=== PATIENT | female | born 1950 | race Caucasian/White ===

== ENCOUNTER 2017-06-30 09:26 | Outpatient (RCR) | payer MEDICARE, SELFPAY ==
--- NOTE | 2017-11-18 16:52 | HP.PT.NRP ---
HP - Discharge Summary (1) - Patient Information SHANTANU BOWIE was seen in my office for initial evaluation on . The following Plan of Care was established for this patient: This patient was last seen in our office . Pertinent comments regarding their Physical therapy will appear below: At this point I will be discontinuing this patient from physical therapy. I would be happy to see this patient again in the future if found appropriate by the physician. Thank you! Lilia Belcher
== END 2017-06-30 19:00 | disposition home or self-care (01) ==
LOC: PT 09:26
PROVIDERS: Family Provider Internal Medicine; PCP Internal Medicine; Visit Provider Internal Medicine
DX: M50.30 Other cervical disc degeneration, unspecified cervical region (principal); G43.909 Migraine, unspecified, not intractable, without status migrainosus
CPT/HCPCS: 97140; G8978; G8979

== ENCOUNTER → 2018-06-07 16:42 | Outpatient (CLI) | payer MEDICARE, SELFPAY ==
--- NOTE | 2018-06-07 16:47 | RAD_ITS ---
STUDY: X-RAY - RIGHT KNEE REASON FOR EXAM: Female, 68 years old. Trauma TECHNIQUE: 4 view(s) of the knee. COMPARISON: None. FINDINGS: Normal visualized distal femur. Normal visualized proximal tibia and fibula. Normal proximal tibiofibular articulation. Narrowed medial femorotibial compartment with spurring of medial tibial condyle. Normal lateral femorotibial compartment. Normal patellofemoral articulation. The soft tissue structures are unremarkable. RAD/Knee 4 or More Views IMPRESSION: Degenerative changes. No evidence for acute fracture Electronically Signed: Antonio Sauer MD at 17:42 EDT , Service support ,
== END ==
PROVIDERS: Family Provider Internal Medicine; PCP Internal Medicine; Visit Provider Internal Medicine
DX: M25.561 Pain in right knee (principal)
CPT/HCPCS: 73564

== ENCOUNTER → 2018-08-15 09:33 | Outpatient (CLI) | payer MEDICARE, SELFPAY ==
[2018-08-15 09:57] VITALS: BP 109/72; PULSE 59; RESP 18; TEMP 36.2; O2SAT 99; BMI 33.3
[2018-08-15] MEDS: Zoledronic Acid 5 MG 100 ML 300 MG IV (10:32)
== END ==
PROVIDERS: Family Provider Internal Medicine; PCP Internal Medicine; Referring Provider Internal Medicine; Visit Provider Internal Medicine
DX: M81.0 Age-related osteoporosis without current pathological fracture (principal)
CPT/HCPCS: 96365; J7050; A4216; J3489

== ENCOUNTER 2018-11-10 10:11 | Day surgery (SDC) | payer MEDICARE, SELFPAY ==
[2018-08-15 09:57] VITALS: BMI 33.3
--- NOTE | 2018-11-07 16:17 | EKG12_ITS ---
Test Reason : Blood Pressure : / mmHG Vent. Rate : 057 BPM Atrial Rate : 057 BPM P-R Int : 162 ms QRS Dur : 086 ms QT Int : 416 ms P-R-T Axes : 076 -48 039 degrees QTc Int : 404 ms Sinus bradycardia Left anterior fascicular block Minimal voltage criteria for LVH, may be normal variant Abnormal ECG Confirmed by SAIDA WHEAT, ZORAN ([id number]), advertising editor DARLENE THOMAS ([id number]) on 11/08/2018 10:30:04 AM Referred By: Wenceslao Varela Confirmed By:ZORAN CINTRON MD
[2018-11-07 17:15] LABS: Anion Gap 3 (5-15); BUN 15 mg/dL (7-18); BUN/Creat Ratio 19.3 RATIO (10-20); Calcium,Total 8.6 mg/dL (8.5-10.1); Chloride 110 mmol/L (98-107); Creatinine, Serum 0.78 mg/dL (0.55-1.02); EST Glomerular Filtration Rate 78 mL/min (>60); Est Glom Filt Rate - Afr Amer 95 mL/min (>60); Glucose 99 mg/dL (74-106); Potassium 5.1 mmol/L (3.5-5.1); Sodium Level 141 mmol/L (136-145)
[2018-11-10 10:49] VITALS: BP 136/60; PULSE 66; RESP 16; TEMP 36.6; O2SAT 97; BMI 33.2
--- NOTE | 2018-11-10 11:59 | DCINST_ITS ---
You will use the following diet at home:: No restrictions Discharge Activity: Return to Normal Activity, - - voice rest for 24 hours Call your doctor if your incision/area has: Increased Pain/ Swelling Allergies/Adverse Reactions: Allergies celecoxib [From Celebrex] Allergy (Verified 11/04/18 09:53) Unknown meperidine HCl [From Demerol] Allergy (Verified 11/04/18 09:53) Unknown metoclopramide HCl [From Reglan] Allergy (Verified 11/04/18 09:53) Unknown SILK SUTURES Allergy (Uncoded 11/04/18 09:53) Other BODY ATTACKS THEM Medications to take at Discharge Aspirin [Aspirin, Baby] 81 mg PO DAILY@0800 04/03/15 Atorvastatin Calcium [Lipitor] 10 mg PO QHS 04/03/15 Citalopram [Celexa] 20 mg PO DAILY 04/03/15 Folic Acid 1 mg PO BIDCM 04/03/15 Lansoprazole [Prevacid] 30 mg PO DAILY 04/03/15 Loratadine [Claritin] 10 mg PO DAILY PRN 04/03/15 Sumatriptan Succinate [Imitrex] 100 mg PO .X1 PRN PRN 04/03/15 Tizanidine HCl 2 mg PO DAILY PRN 04/03/15 Ubidecarenone [Coq10] 100 mg PO DAILY 04/03/15 Nitroglycerin [Nitro-Dur] 0.1 mg TRANSDERM. DAILY 04/04/15 Albuterol Inhaler [Ventolin Hfa (SP)] 1 - 2 puff INHALATION Q6H PRN PRN 11/04/18 Beclomethasone Diprop Inhaler [Qvar 80 Mcg Inhaler] 2 puff INHALATION BID 11/04/18 Calcium Carbonate [Calcium] 600 mg PO DAILY 11/04/18 Ergocalciferol [Vitamin D] 50,000 unit PO QMONTH 11/04/18 Lactobacillus Rhamnosus GG [Culturelle] 1 each PO DAILY 11/04/18 Multivitamins,Therapeutic [Multivitamin] 1 tablet PO DAILY 11/04/18 Ranitidine [Zantac] 150 mg PO DAILY 11/04/18 Primary Care Physician: Mercy Bryant MD [Primary Care Provider] - Test Results: Test results from this visit will be discussed in further detail at your follow- up appointment, if applicable. Please Follow Up With: Wenceslao Varela MD When: 3 weeks
--- NOTE | 2018-11-10 11:59 | PCM.OPRPT ---
Problem List (1) Vocal cord paralysis Status: Chronic Report of Operation Date of Procedure: 11/10/18 Pre-Operative Diagnosis: right vocal cord immobility Post-Operative Diagnosis: right vocal cord immobility Surgery/Procedure Performed:: injection, right true vocal cord Type of Anesthesia:: General Description of Procedure: on the day of the procedure, after appropriate informed consent was obtained, the patient was brought to the operating room and placed in supine position on the operating table. she was placed under general endotracheal anesthesia by the anesthesiologist. the endotracheal tube was secured, the eyes were taped. a tooth guard was placed. the table was rotated 90 degrees toward the surgeon. the jair laryngoscope was inserted until a good glottic view was obtained. the right paraglottic space was injected with 0.8cc of prolaryn gel lateral to the junction of the anterior 2/3 and posterior 1/3 of the true vocal cord. the cord was well medialized. the neck was never extended or flexed during the entire procedure. the retractors were removed. the table was rotated 90 degrees toward the anesthesiologist where she was extubated uneventfully. she was transferred to the PACU in stable condition. - Admit VTE Documentation VTE Present on Admission: No VTE Pharm Prophylaxis ordered?: No Reason prophylaxis not ordered:: Treatment Not Indicated
--- NOTE | 2018-11-10 12:28 | OP.PCM_ITS ---
Problem List (1) Vocal cord paralysis Status: Chronic Report of Operation Date of Procedure: 11/10/18 Pre-Operative Diagnosis: right vocal cord immobility Post-Operative Diagnosis: right vocal cord immobility Surgery/Procedure Performed:: injection, right true vocal cord Type of Anesthesia:: General Description of Procedure: on the day of the procedure, after appropriate informed consent was obtained, the patient was brought to the operating room and placed in supine position on the operating table. she was placed under general endotracheal anesthesia by [facility] anesthesiologist. the endotracheal tube was secured, the eyes were taped. a tooth guard was placed. the table was rotated 90 degrees toward the surgeon. the jair laryngoscope was inserted until a good glottic view was obtained. the right paraglottic space was injected with 0.8cc of prolaryn gel lateral to the junction of the anterior 2/3 and posterior 1/3 of the true vocal cord. the cord was well medialized. the neck was never extended or flexed during the entire procedure. the retractors were removed. the table was rotated 90 degrees toward the anesthesiologist where she was extubated uneventfully. she was transferred to the PACU in stable condition. - Admit VTE Documentation VTE Present on Admission: No VTE Pharm Prophylaxis ordered?: No Reason prophylaxis not ordered:: Treatment Not Indicated
[2018-11-10 12:35] VITALS: BP 130/70; BP 136/60; PULSE 59; RESP 16; TEMP 36.4; O2SAT 94
[2018-11-10 12:45] VITALS: BP 134/73; BP 136/60; PULSE 59; RESP 16; O2SAT 93
[2018-11-10 13:00] VITALS: BP 131/65; BP 136/60; PULSE 60; RESP 16; O2SAT 93
[2018-11-10 13:19] VITALS: BP 126/66; BP 136/60; PULSE 60; RESP 16; TEMP 36.4; O2SAT 94
[2018-11-10 14:16] VITALS: BP 126/60; BP 136/60; PULSE 64; RESP 16; TEMP 36.6; O2SAT 97
== END 2018-11-10 14:16 | disposition home or self-care (01) ==
LOC: SDC 10:12 → AC 10:13
PROVIDERS: Family Provider Internal Medicine; PCP Internal Medicine; Referring Provider Otolaryngology; Visit Provider Otolaryngology
PROC: (CPT 31570; principal; 2018-11-10 11:30)
DX: J38.01 Paralysis of vocal cords and larynx, unilateral (principal); K21.9 Gastro-esophageal reflux disease without esophagitis; K90.0 Celiac disease; Z79.82 Long term (current) use of aspirin; Z79.899 Other long term (current) drug therapy; J45.909 Unspecified asthma, uncomplicated; R49.0 Dysphonia
CPT/HCPCS: 31570; 36415; 80048; 93005; J7120; J2405

== ENCOUNTER 2019-01-17 10:52 | Day surgery (SDC) | payer MEDICARE, SELFPAY ==
--- NOTE | 2019-01-12 11:15 | EKG12_ITS ---
Test Reason : PREOP Blood Pressure : / mmHG Vent. Rate : 060 BPM Atrial Rate : 060 BPM P-R Int : 162 ms QRS Dur : 090 ms QT Int : 432 ms P-R-T Axes : 021 -54 028 degrees QTc Int : 432 ms Normal sinus rhythm Left anterior fascicular block Poor R wave progression Abnormal ECG Confirmed by DIETER WHEAT, ROSALIO ([id number]), pictures editor DARLENE THOMAS ([id number]) on 01/13/2019 7:04:34 AM Referred By: Javy Varela Confirmed By:ROSALIO GARCIAS MD
[2019-01-12 12:04] LABS: Anion Gap 7 (5-15); BUN 20 mg/dL (7-18); BUN/Creat Ratio 24.5 RATIO (10-20); Calcium,Total 8.9 mg/dL (8.5-10.1); Chloride 104 mmol/L (98-107); Creatinine, Serum 0.82 mg/dL (0.55-1.02); EST Glomerular Filtration Rate 74 mL/min (>60); Est Glom Filt Rate - Afr Amer 89 mL/min (>60); Glucose 95 mg/dL (74-106); Potassium 4.4 mmol/L (3.5-5.1); Sodium Level 139 mmol/L (136-145)
[2019-01-17 11:08] VITALS: BP 122/80; PULSE 64; RESP 16; TEMP 36.4; O2SAT 98; BMI 32.1
--- NOTE | 2019-01-17 14:03 | DCINST_ITS ---
You will use the following diet at home:: No restrictions Call your doctor if your incision/area has: Increased Pain/ Swelling Allergies/Adverse Reactions: Allergies celecoxib [From Celebrex] Allergy (Verified 01/17/19 11:06) Unknown meperidine HCl [From Demerol] Allergy (Verified 01/17/19 11:06) Unknown metoclopramide HCl [From Reglan] Allergy (Verified 01/17/19 11:06) Unknown SILK SUTURES Allergy (Uncoded 01/17/19 11:06) Other BODY ATTACKS THEM Medications to take at Discharge Aspirin [Aspirin, Baby] 81 mg PO DAILY@0800 04/03/15 Atorvastatin Calcium [Lipitor] 10 mg PO QHS 04/03/15 Citalopram [Celexa] 20 mg PO DAILY 04/03/15 Folic Acid 1 mg PO BIDCM 04/03/15 Lansoprazole [Prevacid] 30 mg PO DAILY 04/03/15 Loratadine [Claritin] 10 mg PO DAILY PRN 04/03/15 Sumatriptan Succinate [Imitrex] 100 mg PO .X1 PRN PRN 04/03/15 Tizanidine HCl 2 mg PO DAILY PRN 04/03/15 Ubidecarenone [Coq10] 100 mg PO DAILY 04/03/15 Albuterol Inhaler [Ventolin Hfa (SP)] 1 - 2 puff INHALATION Q6H PRN PRN 11/04/18 Beclomethasone Diprop Inhaler [Qvar 80 Mcg Inhaler] 2 puff INHALATION BID 11/04/18 Calcium Carbonate [Calcium] 600 mg PO DAILY 11/04/18 Ergocalciferol [Vitamin D] 50,000 unit PO QMONTH 11/04/18 Lactobacillus Rhamnosus GG [Culturelle] 1 each PO DAILY 11/04/18 Multivitamins,Therapeutic [Multivitamin] 1 tablet PO DAILY 11/04/18 Ranitidine [Zantac] 150 mg PO DAILY 11/04/18 Primary Care Physician: Mercy Bryant MD [Primary Care Provider] - Test Results: Test results from this visit will be discussed in further detail at your follow- up appointment, if applicable. Please Follow Up With: Wenceslao Varela MD When: 1 month
--- NOTE | 2019-01-17 14:03 | PCM.OPRPT ---
Problem List (1) Vocal cord paralysis Status: Chronic Report of Operation Date of Procedure: 01/17/19 Pre-Operative Diagnosis: right vocal cord immobility Post-Operative Diagnosis: right vocal cord immobility Surgery/Procedure Performed:: injection right true vocal cord Type of Anesthesia:: General Description of Procedure: on the day of the procedure, after appropriate informed consent was obtained, the patient was brought to the operating room and placed in supine position on the operating table. she was placed under general endotracheal anesthesia by the anesthesiologist. the endotracheal tube was secured, the eyes were taped. the table was rotated 90 degrees toward the surgeon. a tooth guard was placed. a jair laryngoscope was inserted into the oral cavity with care not to damage the lips, teeth or gums. it was suspended from the adame stand. a zero degree endoscope was used to evaluate the larynx. using the injector needle, 0.8cc of prolaryn plus was injected into the right paraglottic space. the table was rotated 90 degrees toward the anesthesiologist where she was subsequently extubated uneventfully. she was transferred to the PACU in stable condition.
[2019-01-17 14:11] VITALS: BP 114/70; BP 122/80; PULSE 60; RESP 16; TEMP 36.2; O2SAT 94
[2019-01-17 14:15] VITALS: BP 122/80; BP 127/70; PULSE 62; RESP 16; O2SAT 100
[2019-01-17 14:30] VITALS: BP 121/80; BP 122/80; PULSE 60; RESP 16; TEMP 36.7; O2SAT 99
[2019-01-17] MEDS: Scopolamine 1mg/72hr Patch 1 PATCH TD (15:05)
[2019-01-17] MEDS: Acetaminophen 325 MG Tablet 650 MG PO (15:07)
[2019-01-17 15:34] VITALS: BP 122/59; BP 122/80; PULSE 63; RESP 16; TEMP 36.8; O2SAT 98
== END 2019-01-17 15:39 | disposition home or self-care (01) ==
LOC: SDC 10:53 → AC 10:53
PROVIDERS: Family Provider Internal Medicine; PCP Internal Medicine; Referring Provider Otolaryngology; Visit Provider Otolaryngology
PROC: (CPT 31573; principal; 2019-01-17 12:15)
DX: J38.01 Paralysis of vocal cords and larynx, unilateral (principal); R49.0 Dysphonia; E78.00 Pure hypercholesterolemia, unspecified; J45.909 Unspecified asthma, uncomplicated; G47.30 Sleep apnea, unspecified; K21.9 Gastro-esophageal reflux disease without esophagitis; F32.9 Major depressive disorder, single episode, unspecified; Z78.0 Asymptomatic menopausal state; Z79.899 Other long term (current) drug therapy; Z79.82 Long term (current) use of aspirin
CPT/HCPCS: 31573; 36415; 80048; 93005; J7120; J2405

== ENCOUNTER → 2019-01-20 10:44 | Outpatient (CLI) | payer MEDICARE, SELFPAY ==
[2019-01-17 11:08] VITALS: BMI 32.1
--- NOTE | 2019-01-20 10:49 | RAD_ITS ---
HISTORY: PPainRAD-EXT/JT COMPARISON: None FINDINGS: XR Shoulder Min 2 Views: Right, 4 views. SOFT TISSUES: No acute findings. No radiopaque foreign body. BONES/JOINTS: No acute fracture or subluxation. Normal alignment. Preservation of the joint space. No sclerotic or destructive changes observed. RAD/Shoulder min 2 Views IMPRESSION: Negative. at 2123 Reported and signed by: Jamie Leung MD Electronically Signed: Jamie Leung, at 21:28 EDT Tel , Service support ,
== END ==
PROVIDERS: Family Provider Internal Medicine; PCP Internal Medicine; Referring Provider Internal Medicine; Visit Provider Internal Medicine
DX: M25.511 Pain in right shoulder (principal)
CPT/HCPCS: 73030

== ENCOUNTER → 2019-06-16 18:40 | Outpatient (CLI) | payer MEDICARE, SELFPAY ==
--- NOTE | 2019-06-16 18:56 | US_ITS ---
STUDY: ABDOMINAL ULTRASOUND REASON FOR EXAM: Female, 69 years old. Pain TECHNIQUE: Transabdominal ultrasound was performed with real-time and static william scale imaging. TECHNICAL QUALITY: Adequate. COMPARISON: None. FINDINGS: Liver: The liver measures 14.7 cm. There is normal echogenicity of the liver. The bile ducts are within normal limits. There is hepatic color flow. The direction of portal flow is hepatopetal. There is no demonstrated mass lesion. Gallbladder: Normal distended gallbladder. The gallbladder wall measures 2.1 mm. There is a negative sonographic Mathias's sign. There is no pericholecystic fluid. There are no gallstones. Common Bile Duct (C.B.D.): The common bile duct is not visualized. Pancreas: Limited visualization of the pancreas. There is normal echogenicity of the pancreas. There is no demonstrated pancreatic mass or cyst. Spleen: Normal size of the spleen with granulomatous calcifications. The spleen measures 9.1 cm. Right Kidney: Normal size of the right kidney. The right kidney measures 10.5 x 5.1 x 5.1 cm. Normal renal cortex. The right cortex measures 1.6 cm. There is no demonstrated renal mass or cyst. There is no right hydronephrosis. Left Kidney: Normal size of the left kidney. The left kidney measures 10.9 x 5.7 x 4.6 cm. Normal renal cortex. The left cortex measures 1.0 cm. There is no demonstrated renal mass or cyst. There is no left hydronephrosis. Aorta: Mild ectasia of the distal abdominal aorta measuring 2 cm in diameter. Mildly ectatic common iliac arteries up to 1.4 cm. I.V.C.: The IVC is patent. There is no ascites. US/Abdomen Complete IMPRESSION: Granulomas calcifications in the spleen. Mild ectasia of the aorta and common iliac arteries. Electronically Signed: Tripp Alonzo DO at 20:30 EDT Tel [phone], Service support ,
[2019-06-16 20:13] LABS: Absolute Lymphocyte Count 1.97 X10^3/uL (0.83-4.51); Absolute Neutrophil Count 3.3 X10^3/uL (2.0-7.7); Basophil# 0.03 X10^3/uL; Basophil% 0.5 % (0-1); Eosinophil# 0.21 X10^3/uL; Eosinophils% 3.4 % (0-5); Hematocrit 40.5 % (37-47); Lymphocyte # 1.97 X10^3/ul (4.0); Lymphocyte % 32.1 % (19-41); Mean Corp Hgb Conc 32.1 g/dL (32-36); Mean Corpuscular Hgb 30.7 pg (27.0-32.0); Mean Corpuscular Volume 95.5 fL (81-99); Monocyte# 0.62 X10^3/uL; Monocyte% 10.1 % (0-10); NRBC Flagged by Analyzer 0 % (0-5); Neutrophil % 53.7 % (47-70); Platelet Count 195 K/mm3 (150-450); RBC Distribution Width CV 12.6 % (11.6-14.6); RBC Distribution Width SD 44.2 fl (35.1-43.9); Red Blood Count 4.24 M/mm3 (4.2-5.4); White Blood Count 6.1 K/mm3 (4.4-11.0)
[2019-06-16 21:45] LABS: ALB/GLOB Ratio 1.2 RATIO (0.9-2.4); AST(SGOT) 29 U/L (15-37); Alanine Aminotransfer ALT/SGPT 39 U/L (13-56); Albumin, Serum 3.8 g/dL (3.2-5.0); Alkaline Phosphatase 71 U/L (45-117); Amylase 24 U/L (25-115); Anion Gap 5 (5-15); BUN 18 mg/dL (7-18); BUN/Creat Ratio 23.8 RATIO (10-20); Calcium,Total 9.4 mg/dL (8.5-10.1); Chloride 106 mmol/L (98-107); Creatinine, Serum 0.76 mg/dL (0.55-1.02); EST Glomerular Filtration Rate 81 mL/min (>60); Est Glom Filt Rate - Afr Amer 98 mL/min (>60); Globulin 3.1 g/dL (2.2-4.2); Glucose 89 mg/dL (74-106); Lipase 68 U/L (73-393); Potassium 4.2 mmol/L (3.5-5.1); Protein, Total 6.9 g/dL (6.4-8.2); Sodium Level 140 mmol/L (136-145)
== END ==
PROVIDERS: Family Provider Internal Medicine; PCP Internal Medicine; Visit Provider Internal Medicine
DX: R10.13 Epigastric pain (principal); R10.11 Right upper quadrant pain
CPT/HCPCS: 36415; 76700; 80053; 82150; 83690; 85025; 87086; 87088

== ENCOUNTER → 2019-06-21 08:23 | Outpatient (CLI) | payer MEDICARE, SELFPAY ==
[2019-06-26 13:55] LABS: H. PYLORI STOOL AG Negative (Negative)
== END ==
PROVIDERS: Family Provider Internal Medicine; PCP Internal Medicine; Referring Provider Internal Medicine; Visit Provider Internal Medicine
DX: R10.13 Epigastric pain (principal); R10.11 Right upper quadrant pain; M54.5 Low back pain

== ENCOUNTER → 2019-10-10 10:22 | Outpatient (CLI) | payer MEDICARE, SELFPAY ==
--- NOTE | 2019-10-10 10:25 | BI_ITS ---
MAMMOGRAPHY - BILATERAL SCREENING REASON FOR EXAM: Female, 69 years old. Routine annual screening examination. PERTINENT HISTORY: Non-contributory. Remote left breast excisional biopsy. TECHNIQUE: Digital bilateral breast oliver (3D mammographic acquisition) in the CC and MLO projections. 2-D mediolateral oblique (MLO) and craniocaudad (CC) views of both breasts were obtained. CAD: Full Field Digital Mammography with Computer Added Detection was performed. COMPARISON: Comparison is made with prior examination dated May 12, 2018. FINDINGS: Breast Composition: The breasts are heterogeneously dense, which may obscure small masses. There are no dominant masses or suspicious calcifications. No other significant abnormalities are identified. There has been no significant change since the prior study. BI/SCREEN MAMM (CAD) W/OLIVER BILAT IMPRESSION: Stable bilateral screening mammogram. Yearly follow-up mammogram recommended. (A) ASSESSMENT CATEGORY: BIRADS Category 1: Negative. A letter regarding these results will be sent to the patient by the facility within 30 days. Approximately 10% of breast cancers are not detected by mammography. A normal mammogram should not delay biopsy of a clinically suspicious abnormality. [id number] Electronically Signed: Jose Luis Lima, at 14:23 EST , Service support ,
== END ==
PROVIDERS: Family Provider Internal Medicine; PCP Internal Medicine; Referring Provider Internal Medicine; Visit Provider Internal Medicine
DX: Z12.31 Encounter for screening mammogram for malignant neoplasm of breast (principal); M81.0 Age-related osteoporosis without current pathological fracture
CPT/HCPCS: 77063; 77067

== ENCOUNTER → 2019-10-11 09:13 | Outpatient (CLI) | payer MEDICARE, SELFPAY ==
--- NOTE | 2019-10-11 09:15 | BD_ITS ---
STUDY: DUAL ENERGY X-RAY ABSORPTIOMETRY / DXA REASON FOR EXAM: Female, 69 years old. [employer] -- USES STEROID INHALER DAILY -- TAKES MULTIVITAMIN AND CALCIUM -- HAS BEEN ON RECLAST x3 YRS -- DOES MODERATE AMOUNT OF EXERCISE -- FAMILY HX OF OSTEO- SISTERS -- HX OF CLAVICLE FX, RIB FX -- HX OF CERVICAL FUSION C5-7 -- MICHA OF 2.5 INCHES TECHNIQUE: Bone Mineral Density (BMD) measurements of lumbar spine and bilateral hips were obtained. COMPARISON: Comparison is made with prior study dated July 27, 2017. FINDINGS: Lumbar Spine (L1-L4): g/cm2 (0.868) / T-score (-2.5) / Z-score (0.8) Findings are suggestive of osteoporosis with a high fracture risk. Left Femur Total: g/cm2 (0.946) / T-score (-0.5) / Z-score (0.9) Left Femoral Neck: g/cm2 (0.783) / T-score (-1.8) / Z-score (-0.2) Right Femur Total: g/cm2 (0.899) / T-score (-0.9) / Z-score (0.6) Right Femoral Neck: g/cm2 (0.801) / T-score (-1.7) / Z-score (0.0) The T-Scores on the most recent prior examination were: Lumbar Spine (L1-L4): There has been improvement of bone density since the previous examination. Left Femur Total: which represents an improvement of 2.8%. Right Femur Total: which represents an improvement of 4.9%. BD/Dexa Bone Density Study IMPRESSION: The patient is considered osteoporotic as outlined below according to World Leonel Organization (WHO) criteria with a high fracture risk. There has been improvement of bone density since the previous examination. Reference Information: The T-score is the number of standard deviations above or below the standard which is normal for young adults at their peak bone mineral density. The World Health Organization (WHO) interprets the T-scores as follows: Above -1 Normal bone density Between -1 and -2.5 Osteopenia Equal to / or below -2.5 Osteoporosis As a practical clinical guideline, osteopenia may be graded as follows: Mild -1 through -1.5 Moderate -1.6 through -2.0 Severe -2.1 through -2.4 The Z-score is the number of standard deviations above or below age-matched controls. A Z-score of less than -1.5 would be considered abnormal. References: 1. NIH Osteoporosis and Related Bone Diseases http://www.osteo.org 2. International Society for Clinical Densitometry http://www.iscd.org 3. National Osteoporosis Foundation http://www.nof.org Electronically Signed: Jose Luis Lima, at 11:18 EST , Service support ,
== END ==
LOC: OPBD 09:14
PROVIDERS: PCP Internal Medicine; Referring Provider Internal Medicine; Visit Provider Internal Medicine
DX: M81.0 Age-related osteoporosis without current pathological fracture (principal)
CPT/HCPCS: 77080

== ENCOUNTER 2019-10-29 07:08 | Emergency (ER) | payer MEDICARE, SELFPAY ==
[2019-10-29 07:09] VITALS: BP 149/85; PULSE 60; RESP 16; TEMP 35.8; O2SAT 96; BMI 23.6
--- NOTE | 2019-10-29 07:27 | EKG12_ITS ---
Test Reason : CP Blood Pressure : / mmHG Vent. Rate : 058 BPM Atrial Rate : 058 BPM P-R Int : 164 ms QRS Dur : 102 ms QT Int : 440 ms P-R-T Axes : 015 -47 025 degrees QTc Int : 431 ms Sinus bradycardia Left anterior fascicular block Minimal voltage criteria for LVH, may be normal variant Abnormal ECG Confirmed by MIGDALIA WHEAT, MAEGAN ([id number]), pictures editor DARLENE THOMAS ([id number]) on 11/02/2019 2:59:14 PM Referred By: VAIBHAV Confirmed By:TANYA NEGRON MD
--- NOTE | 2019-10-29 07:38 | RAD_ITS ---
STUDY: X-RAY CHEST REASON FOR EXAM: Female, 69 years old. Substernal chest pain TECHNIQUE: Single AP portable view of the chest. COMPARISON: 04/06/2016 FINDINGS: EKG leads overlie the chest The lungs are clear and expanded. There is no demonstrated pleural abnormality. Normal size heart. Normal mediastinum and hector. Normal visualized pulmonary arteries. Normal visualized aortic arch and descending thoracic aorta. There are diffuse degenerative changes of the visualized thoracic spine. Normal visualized ribs, clavicles, and shoulders. There is no demonstrated abnormality of the visualized soft tissue structures of the upper abdomen. RAD/Chest 1 View (Portable) IMPRESSION: No acute pulmonary process Electronically Signed: Alf Domingo MD at 8:10 EST , Service support ,
[2019-10-29 07:39] LABS: Absolute Lymphocyte Count 1.41 X10^3/uL (0.83-4.51); Absolute Neutrophil Count 2.8 X10^3/uL (2.0-7.7); Basophil# 0.02 X10^3/uL; Basophil% 0.4 % (0-1); Eosinophil# 0.28 X10^3/uL; Eosinophils% 5.5 % (0-5); Hematocrit 41.1 % (37-47); Hemoglobin 13.1 g/dL (12.0-15.0); Lymphocyte # 1.41 X10^3/ul (4.0); Lymphocyte % 27.8 % (19-41); Mean Corp Hgb Conc 31.9 g/dL (32-36); Mean Corpuscular Hgb 29.8 pg (27.0-32.0); Mean Corpuscular Volume 93.6 fL (81-99); Mean Platelet Vol. 10.4 fl (6.2-12.0); Monocyte# 0.53 X10^3/uL; Monocyte% 10.5 % (0-10); NRBC Flagged by Analyzer 0 % (0-5); Neutrophil # 2.82 X10^3/uL (2.7-7.7); Neutrophil % 55.6 % (47-70); Platelet Count 239 K/mm3 (150-450); RBC Distribution Width CV 12.7 % (11.6-14.6); Red Blood Count 4.39 M/mm3 (4.2-5.4); White Blood Count 5.1 K/mm3 (4.4-11.0)
[2019-10-29 07:44] VITALS: O2SAT 96
[2019-10-29] MEDS: 0.9% Normal Saline 1,000 ML 1000 ML IV (07:44)
[2019-10-29 07:49] LABS: Anion Gap 6 (5-15); BUN 13 mg/dL (7-18); BUN/Creat Ratio 17.1 RATIO (10-20); Calcium,Total 9.1 mg/dL (8.5-10.1); Chloride 107 mmol/L (98-107); Creatinine, Serum 0.76 mg/dL (0.55-1.02); EST Glomerular Filtration Rate 80 mL/min (>60); Est Glom Filt Rate - Afr Amer 97 mL/min (>60); Estimated Creatinine Clearance 47.78 ml/min; Glucose 108 mg/dL (74-106); Potassium 4.2 mmol/L (3.5-5.1); Sodium Level 142 mmol/L (136-145)
--- NOTE | 2019-10-29 08:01 | ED.VISSUMM ---
- ER Visit Summary Date of Service: 10/29/19 Chief Complaint: Chest pain History of Present Illness: The patient is a [address] Bryant. She reports that she has chest pain that began 10 days ago. It is a constant dull pain with squeezing episodes the last 15 to 20 minutes. It is not related to exertion. In fact, she states that nothing makes this worse. Is relieved by a hot shower. It is 8 out of 10 at worst and 6 out of 10 currently. She reports that she has felt slightly short of breath for the past 2 days. She has been a little diaphoretic. No associated nausea or vomiting. Patient reports the pain seems to be its worst at night. States that last night she had a 30 to 40-minute episode of a fast heart rate. States that this was not irregular. She denies any other complaints. Physical Examination: Vitals: Stable. Afebrile. General: Well-nourished and well-developed. Head: Normocephalic atraumatic. Neck: Supple, no lymphadenopathy. No JVD. Nontender. Cardiovascular: Regular rate and rhythm. No murmurs. Respiratory: No respiratory distress. Clear to auscultation bilaterally. Abdominal: Soft, nontender, nondistended, normal bowel sounds. No guarding, rebound, or peritoneal signs. Back: Nontender. Extremities: Nontender, no edema. Skin: Normal color, no rash. Neurologic: Alert and oriented ?3. Cranial nerves II through XII are intact. Normal strength and sensation. Psych: Normal affect. Test Results: EKG is sinus bradycardia at [address] changes and a left anterior fascicular block. This is unchanged from December 2018. CBC shows monocytes of 11 eosinophils of 6. Chem-7 shows a glucose of 108. Troponin is less than 0.015. D-dimer is negative. Clinical Impression(s) from Imaging Studies Chest X-Ray 10/29/19 07:38 IMPRESSION: No acute pulmonary process Electronically Signed: Alf Domingo MD at 8:10 EST , Service support , Emergency Department Course and Treatment: Patient refused pain medications. She is resting comfortably. Treatment Plan: Patient has very atypical chest pain is been present for 10 days with an unremarkable work-up. Unchanged EKG. Normal troponin. Negative d-dimer. I feel that she is a suitable candidate for further outpatient evaluation. She will be discharged with instructions to follow-up with her primary care physician within 1 to 2 days for another exam. Return to the emergency department for any worsening symptoms. Disposition: To home in improved and stable condition. Impression: 1. Atypical chest pain. This note was generated with [employer] dictation software. It may contain incorrect words, spelling, and punctuation that were not noted in review of the chart prior to signing ED Disposition - Plan for ED Patient: Instructions: CHEST PAIN, Uncertain Cause Referrals: Mercy Bryant MD [Primary Care Provider] - 2 Days
[2019-10-29 08:09] LABS: D-Dimer Quantitative (DVT/PE) 0.33 FEU/ug/m (0.27-0.49)
[2019-10-29 08:36] VITALS: BP 136/73; PULSE 52; RESP 16; O2SAT 99
== END 2019-10-29 08:45 | disposition home or self-care (01) ==
LOC: ED 07:43
PROVIDERS: Emergency Provider Emergency Medicine; PCP Internal Medicine
DX: R07.2 Precordial pain (principal); I44.4 Left anterior fascicular block; R06.02 Shortness of breath; R00.0 Tachycardia, unspecified; K21.9 Gastro-esophageal reflux disease without esophagitis; Z79.82 Long term (current) use of aspirin; Z79.899 Other long term (current) drug therapy
CPT/HCPCS: 71045; 80048; 84484; 85025; 85379; 93005; 96360; 99284; J7030; A4216

== ENCOUNTER → 2019-11-15 10:46 | Outpatient (CLI) | payer MEDICARE, SELFPAY ==
[2019-10-29 07:09] VITALS: BMI 23.6
== END ==
PROVIDERS: PCP Internal Medicine; Referring Provider Internal Medicine; Visit Provider Internal Medicine
DX: R00.2 Palpitations (principal)
CPT/HCPCS: 93225; 93226

== ENCOUNTER → 2020-01-23 07:04 | Outpatient (CLI) | payer MEDICARE, SELFPAY ==
[2019-11-23 15:33] VITALS: BMI 33.2
--- NOTE | 2020-01-23 07:04 | ECHOD_ITS ---
Reason For Study: SOB Procedure This was a 2D Doppler, Color Flow transthoracic echocardiogram. The study was technically difficult. Exam performed in department. Left Ventricle Normal LV size. Left ventricular systolic function is normal. The estimated ejection fraction is 60 %. Diastolic function is indeterminate. No regional wall motion abnormalities noted. Right Ventricle Normal RV size. Normal systolic function. Atria Normal left atrium. Normal right atrium. No doppler evidence for ASD. Mitral Valve There is mild mitral annular calcification. Normal mitral valve. Trivial mitral valve insufficiency. Tricuspid Valve Normal tricuspid valve. Trivial tricuspid valve insufficiency. Right ventricular systolic pressure estimated to be 25 mmHg. Aortic Valve Trisinus/trileaflet aortic valve. Normal aortic valve. Pulmonic Valve The pulmonic valve is not well visualized. Trivial pulmonic valve insufficiency. Great Vessels Normal sized aortic root. Pericardium/Pleural No pericardial effusion. MMode/2D Measurements & Calculations LVIDd: 4.6 cm IVSd: 1.1 cm Ao root diam: 3.2 cm LVIDs: 2.6 cm LVPWd: 0.94 cm RVDd: 3.0 cm FS: 43.6 % LAV(MOD-bp): 49.5 ml EDV(MOD-sp4): 66.5 ml EDV(MOD-sp2): 60.5 ml LAV(MOD-bp) Indexed: 24.7 ml/m2 ESV(MOD-sp4): 25.2 ml EF(MOD-sp2): 66.0 % LAV(MOD-sp2): 49.7 ml EF(MOD-sp4): 62.2 % LAV(MOD-sp4): 47.6 ml SV(MOD-sp4): 41.4 ml SV(MOD-sp2): 39.9 ml LA A4 area: 17.4 cm2 LA dimension(2D): 3.6 cm RA A4 area: 15.4 cm2 Doppler Measurements & Calculations MV E max stephon: 76.7 cm/sec Lat Peak E' Stephon: 5.0 cm/sec Med Peak E' Stephon: 3.6 cm/sec MV A max stephon: 83.7 cm/sec E/E' lat: 15.2 E/E' med: 21.2 MV E/A: 0.92 Ao V2 max: 162.2 cm/sec LV V1 max: 98.6 cm/sec PA V2 max: 99.9 cm/sec Ao max P.5 mmHg LV V1 max P.9 mmHg TR max stephon: 236.3 cm/sec TR max P.3 mmHg Interpretation Summary The study was technically difficult. Left ventricular systolic function is normal. The estimated ejection fraction is 60 %. There is mild mitral annular calcification. Trivial mitral valve insufficiency. Trivial tricuspid valve insufficiency. Trivial pulmonic valve insufficiency. Right ventricular systolic pressure estimated to be 25 mmHg. Diastolic function is indeterminate. Ordering Physician: Refugio Gannon Referring Physician: Mercy Bryant M.D. Performed By: Jessika Slaughter FEROZ
--- NOTE | 2020-01-23 08:56 | STRESSREP_ITS ---
Stress Test Report Date: 01-23-2020 Procedure: Exercise tolerance test/imaging study Indications: Shortness of breath/dyspnea; CAD Consent: Per the patient Procedure: The patient exercised on a Andrew protocol for 4 minutes and 15 seconds completing Stage I and 1 minute and 15 seconds of Stage II achieving a peak heart rate of 142 bpm (94 % predicted maximal heart rate) with a peak blood pressure 168/78 mmHg and a peak MET capacity of 6 METs. The baseline ECG demonstrated sinus bradycardia. The peak exercise ECG demonstrated no obvious ECG changes. There was a rare PAC and a rare PVC and an isolated irregular ventricular quadruplet during recovery. The functional capacity was considered decreased. There was no complaint of chest discomfort during exercise or recovery. The examination was discontinued secondary to dyspnea. Impression: 1. Technically adequate (percent predicted maximal heart rate greater than 85%) exercise tolerance test 2. Peak exercise ECG no obvious ECG changes 3. There was a rare PAC and a rare PVC and an isolated irregular ventricular quadruplet during recovery 4. Nuclear images pending Myocardial perfusion imaging study: Technique: The patient was injected with 13.2 mCi of technetium 99m Cardiolite and subsequently rest SPECT Cardiolite nuclear imaging was obtained in the horizontal long, vertical long, and short axis views. The patient exercised on a Andrew protocol for 4 minutes and 15 seconds completing Stage I and 1 minute and 15 seconds of Stage II achieving a peak heart rate of 142 bpm (94 % predicted maximal heart rate) with a peak blood pressure 168/78 mmHg and a peak MET capacity of 6 METs. The patient was injected with 40.0 mCi of technetium 99m Cardiolite and subsequently stress SPECT Cardiolite nuclear imaging was obtained in the horizontal long, vertical long, and short axis views. A gated Cardiolite study at peak stress was obtained. Interpretation: Rest and stress SPECT Cardiolite nuclear imaging status post realignment, normalization, and attenuation correction, demonstrates small area of subtle diminished tracer uptake near the apical segments without significant change between rest and stress. There is end systolic thickening and brightening. The gated Cardiolite study demonstrates myocardial thickening and inward wall motion. The reported LVEF is 77 %. Impression: 1. Rest and stress SPECT Cardiolite nuclear imaging demonstrate myocardial perfusion change appearing compatible with the effects of soft tissue attenuation/artifact and/or physiologic apical thinning with no myocardial perfusion changes considered diagnostic for associated stress-induced myocardial ischemia. 2. The gated Cardiolite study reports an LVEF of 77 %. This note was generated with [employer] software. It may contain incorrect words, spelling, and punctuation that were not noted in checking the note before signing.
== END ==
PROVIDERS: PCP Internal Medicine; Referring Provider Internal Medicine Cardiovascular Disease; Visit Provider Internal Medicine Cardiovascular Disease
DX: R06.02 Shortness of breath (principal); I25.10 Atherosclerotic heart disease of native coronary artery without angina pectoris
CPT/HCPCS: 78452; 93017; 93306; A9500; A4216

== ENCOUNTER 2020-03-13 14:00 | Outpatient (RCR) | payer MEDICARE, SELFPAY ==
--- NOTE | 2019-08-29 14:48 | HP.SP.AD ---
History - History Date of Eval: 08/21/19 Medical Diagnosis (from RX): VOCAL FOLD PARALYSIS Date of Onset of Diagnosis: 09-27-18 Previous speech therapy: Yes Results: Speech therapist gave home strategies prior to surgery. 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 Two injections from Dr. Varela, ENT, in November and March 2019 then surgery on July 19, 2019 vocal cords to increase mass of vocal cord. Smoking Status: Never smoker Hx Smoking: No Hx Tobacco Use: No Hx Smoking Exposure: No - Pain Is pain an issue with your current prescribed condition?: Yes - Personal Occupation: Retired Right Hearing Abillity: Use of Hearing Aid Left Hearing Abillity: Use of Hearing Aid Visual Assistive Devices: Glasses Patients Living Arrangements: With Significant Other Patient Allergies - Allergies Allergies celecoxib [From Celebrex] Allergy (Verified 01/17/19 11:06) Unknown meperidine HCl [From Demerol] Allergy (Verified 01/17/19 11:06) Unknown metoclopramide HCl [From Reglan] Allergy (Verified 01/17/19 11:06) Unknown SILK SUTURES Allergy (Uncoded 01/17/19 11:06) Other BODY ATTACKS THEM Subjective Voice - Intubation Was the Client intubated: Yes If yes, list date, duration, and explanation: 2018 - an hour and a half during surgery. - Intake Water (ounces): 16 Coffee (ounces): 24 - Alcoholic Beverage Intake Intake: Rarely Voice Handicap Index (VHI) - I VHI Administered: Yes VHI: Patient completed the Voice Handicap Index, which is a 30 item, self administered questionnaire that asks an individual to describe their voice and the effects of their voice on their life. Three subscales cover the areas of functional, emotional, and physical aspects of the voice disorders. Points from the questions can be combined to assign a total score, or they can be combined by subscale. Results for the VHI are as follows: Date: 08/29/19 - VHI Test Functional: Angelitas voice makes it difficult for people to hear her as well as difficulty being understood in noisy rooms. She speaks less frequently due to her voice and also her voice has restricted her personal and social life. Physical: She stated that she occasionally runs out of air when she speaks as well as strain to speak. She uses a great deal of effort and her voice is worse in the evening. Emotional: Nichelle reported feeling tense when speaking with others due to her voice and she feels that others seem irritated with her voice. She is less outgoing than previously and her voice issues sometimes upsets her. Total Severity Rating: Severe (61-120) Subjective Clinical Impression - Adult Clinical Impression Dysphonia: any 'abnormal' vocal quality suggesting an interruption of normal production: Present Hoarseness: excessive 'noise' in the signal creating an unpleasant, rough vocal quality: Present Pitch breaks: an interruption in the frequency of vibration of the vocal folds or a shift in vocal register during singing. A voice can break up or down in pitch: Present Strained-strangled: perceived strain or pushed vocal quality at the onset of and during phonation: Present Vocal fatigue: a 'tired' voice or feeling of excessive effort to phonate: Present - Non-Phonatory Behaviors/Respiration Reduced loudness or vocal weakness: Present Objective Voice - Objective data Objective Data: Objective data: Sound pressure level (SPL acoustic correlation of vocal loudness) was measured with a sound level meter at a distance of 40 cm from the patient's mouth. Average conversational loudness is 70-80 dB and sustained phonation duration is 15 to 20 seconds for a typical adult. 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 - Recommendations Treatment Warranted: Yes - Frequency Visits in this POC: 6 - Prognosis Prognosis: Good - Goals that are Established: Determination:: Goals will be added/modified as deemed necessary and appropriate. Therapy will be discontinued when results of re-evaluation indicate therapy is no longer needed or lack of progress has been documented. - Goal #1-5 Goal #1: Patient will use techniques to faciliate vocal hygiene to maximize functional without hyperfunction/abuse on 4/5 trials on 2/3 consecutive sessions. Goal #2: Patient will engage in easy vocal adduction exercises to improve medial glottal closure on 4/5 trials on 2/3 consecutive sessions. Goal #3: Patient will utilize diaphgramatic breathing on 4/5 trials on 2/3 consecutive sessions. Education - Patient has Indicated that the Following Identified Educational Needs: None The Patient has indicated that they have no educational or learning abilities that may effect their care.: Yes - Patient Instruction Patient Education: Diagnosis, Treatment Plan, Goals, Home Exercise Program Person Taught: Patient Teaching Method: Discussion Response to teaching: Verbalize understanding, Has Prior Knowledge
--- NOTE | 2019-10-04 19:39 | HP.SP.ADRE ---
Previous/Current Goals - Goals 1-5 Previous Goal #1: Patient will use techniques to faciliate vocal hygiene to maximize functional without hyperfunction/abuse on 4/5 trials on 2/3 consecutive sessions. Goal 1 Status: Pt has increased H20 intake to approximately 64 ozs daily and reports maintaining adequate humidity in her home. Previous Goal #2: Patient will engage in easy vocal adduction exercises to improve medial glottal closure on 4/5 trials on 2/3 consecutive sessions. Goal 2 Status: Pt has been educated on several vocal adduction exercises: hand/chair pull, stacatto production, swallowing prior to phonation, loud phonation, and pitch glides and steps. The pt was able to demonstrate all inconsistently (2/5 trials) with significantly improved phonation during her last session given moderate models and cues. She is not yet generalizing to conversation and the fold is likely still paralyzed in the paramedium position. Sheets for home practice have been provided, with significant education provided re: not straining extrinsic laryngeal musculature. Previous Goal #3: Patient will utilize diaphgramatic breathing on 4/5 trials on 2/3 consecutive sessions. Goal 3 Status: Pt continues with primarily clavicular breathing, though is able to achieve improved abdominal breathing at rest in structured activities in 2/5 trials given moderate models and cues. History - History Date of Eval: 08/29/19 Medical Diagnosis (from RX): VOCAL FOLD PARALYSIS Date of Onset of Diagnosis: 09-27-18 Previous speech therapy: Yes Results: Speech therapist gave home strategies prior to surgery. 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 Two injections from Dr. Varela, ENT, in November and March 2019 then surgery on July 19, 2019 vocal cords to increase mass of vocal cord. Smoking Status: Never smoker Hx Smoking: No Hx Tobacco Use: No Hx Smoking Exposure: No - Pain Is pain an issue with your current prescribed condition?: No - Personal Occupation: Retired Right Hearing Abillity: Use of Hearing Aid Left Hearing Abillity: Use of Hearing Aid Visual Assistive Devices: Glasses Patients Living Arrangements: With Significant Other Patient Allergies - Allergies Allergies celecoxib [From Celebrex] Allergy (Verified 01/17/19 11:06) Unknown meperidine HCl [From Demerol] Allergy (Verified 01/17/19 11:06) Unknown metoclopramide HCl [From Reglan] Allergy (Verified 01/17/19 11:06) Unknown SILK SUTURES Allergy (Uncoded 01/17/19 11:06) Other BODY ATTACKS THEM Subjective Voice - Intubation Was the Client intubated: Yes If yes, list date, duration, and explanation: 2019 - an hour and a half during surgery. - Intake Water (ounces): 16 Coffee (ounces): 24 - Alcoholic Beverage Intake Intake: Rarely Voice Handicap Index (VHI) - VHI VHI Administered: Yes VHI: Patient completed the Voice Handicap Index, which is a 30 item, self administered questionnaire that asks an individual to describe their voice and the effects of their voice on their life. Three subscales cover the areas of functional, emotional, and physical aspects of the voice disorders. Points from the questions can be combined to assign a total score, or they can be combined by subscale. Results for the VHI are as follows: Date: 08/29/19 - VHI Test Functional: Angelitas voice makes it difficult for people to hear her as well as difficulty being understood in noisy rooms. She speaks less frequently due to her voice and also her voice has restricted her personal and social life. Physical: She stated that she occasionally runs out of air when she speaks as well as strain to speak. She uses a great deal of effort and her voice is worse in the evening. Emotional: Nichelle reported feeling tense when speaking with others due to her voice and she feels that others seem irritated with her voice. She is less outgoing than previously and her voice issues sometimes upsets her. Total Severity Rating: Severe (61-120) Subjective Clinical Impression - Adult Clinical Impression Dysphonia: any 'abnormal' vocal quality suggesting an interruption of normal production: Present Hoarseness: excessive 'noise' in the signal creating an unpleasant, rough vocal quality: Present Pitch breaks: an interruption in the frequency of vibration of the vocal folds or a shift in vocal register during singing. A voice can break up or down in pitch: Present Strained-strangled: perceived strain or pushed vocal quality at the onset of and during phonation: Present Vocal fatigue: a 'tired' voice or feeling of excessive effort to phonate: Present - Non-Phonatory Behaviors/Respiration Reduced loudness or vocal weakness: Present Objective Voice - Objective data Objective Data: Objective data: Sound pressure level (SPL acoustic correlation of vocal loudness) was measured with a sound level meter at a distance of 40 cm from the patient's mouth. Average conversational loudness is 70-80 dB and sustained phonation duration is 15 to 20 seconds for a typical adult. Sustained Phonatin duration (seconds): 11 seconds Is the individual stimulable to increase vocal intensity: No - Limited Plan - Plan Plan: Will recommend continued voice therapy at this time as the patient continues to present with significant hoarseness which negatively impacts her communication across multiple environments. The pt will continue to benefit from direct therapy to implement strategies for improved medial glottal closure. - Recommendations Treatment Warranted: Yes - Frequency Frequency: 1x/Week Duration: 6 Weeks - Prognosis Prognosis: Good - Goals that are Established: Determination:: Goals will be added/modified as deemed necessary and appropriate. Therapy will be discontinued when results of re-evaluation indicate therapy is no longer needed or lack of progress has been documented. - Goal #1-5 Goal #1: Patient will use techniques to faciliate vocal hygiene to maximize functional without hyperfunction/abuse on 4/5 trials on 2/3 consecutive sessions. Goal #2: Patient will engage in easy vocal adduction exercises to improve medial glottal closure on 4/5 trials on 2/3 consecutive sessions. Goal #3: Pt continues with primarily clavicular breathing, though is able to achieve improved abdominal breathing at rest in structured activities in 2/5 trials given moderate models and cues.
--- NOTE | 2020-03-25 15:23 | HP.SP.DC_ITS ---
ST Discharge Summary - Discharged: Discharge: Nichelle Denise is discharged from outpatient speech-language therapy effective 03/25/2020. 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 She recently had an injection into the paralyzed fold and has improved vocal strength and volume, though still presents with a moderately hoarse vocal quality. Nichelle has improved her breath support via diaphragmatic breathing exercises and has improved vocal hygiene with adequate water intake and decreased throat clearing. She is independent with lip and tongue trills as well as pitch glides and is effectively and consistently completing at home. Therefore, discharge is recommended at this time with the patient to continue to complete exercises daily at home. She was educated on how to reach this ENERGY ASSISTANT for questions and concerns if they arise in the future. Please reconsult as necessary.
== END 2020-03-13 19:00 | disposition home or self-care (01) ==
LOC: SP 14:00
PROVIDERS: Family Provider Internal Medicine; PCP Internal Medicine
DX: R49.0 Dysphonia (principal); J38.01 Paralysis of vocal cords and larynx, unilateral
CPT/HCPCS: 92507; 92524

== ENCOUNTER → 2020-07-02 16:14 | Outpatient (CLI) | payer MEDICARE, SELFPAY ==
[2020-06-13 10:02] VITALS: BMI 33.9
--- NOTE | 2020-07-02 16:19 | RAD_ITS ---
STUDY: X-RAY - PELVIS REASON FOR EXAM: Female, 70 years old. Pubic bone pain when sitting TECHNIQUE: One view of the pelvis was obtained. COMPARISON: None. FINDINGS: The bones of the pelvis are intact and located. Mineralization is normal. Soft tissues are unremarkable. RAD/Pelvis 1 or 2 Views IMPRESSION: Normal osseous pelvis. Electronically Signed: Kristie Armenta, at 11:38 EDT Tel , Service support ,
== END ==
PROVIDERS: PCP Internal Medicine; Referring Provider Internal Medicine; Visit Provider Internal Medicine
DX: M89.9 Disorder of bone, unspecified (principal)
CPT/HCPCS: 72170

== ENCOUNTER → 2020-08-22 13:35 | Outpatient (CLI) | payer MEDICARE, SELFPAY ==
[2020-06-13 10:02] VITALS: BMI 33.9
[2020-08-22 13:44] VITALS: BP 118/68; PULSE 56; RESP 14; TEMP 36; O2SAT 98; BMI 33.3
[2020-08-22] MEDS: 0.9% NaCl Peripheral Flush Adult/Peds IV ×2 (13:54→14:14)
[2020-08-22] MEDS: Zoledronic Acid 5 MG 100 ML 400 MG IV (13:55)
[2020-08-22 14:19] VITALS: BP 125/70; PULSE 52; RESP 14; TEMP 36.4; O2SAT 97
== END ==
PROVIDERS: PCP Internal Medicine; Referring Provider Internal Medicine; Visit Provider Internal Medicine
DX: M81.0 Age-related osteoporosis without current pathological fracture (principal)
CPT/HCPCS: 96365; A4216; J3489

== ENCOUNTER → 2020-10-14 09:33 | Outpatient (CLI) | payer MEDICARE, SELFPAY ==
[2020-06-13 10:02] VITALS: BMI 33.9
[2020-08-22 13:44] VITALS: BMI 33.3
--- NOTE | 2020-10-14 09:35 | BI_ITS ---
MAMMOGRAPHY - BILATERAL SCREENING REASON FOR EXAM: Female, 70 years old. Routine annual screening examination. PERTINENT HISTORY: Non-contributory. Remote left excisional breast biopsy. TECHNIQUE: Digital bilateral breast oliver (3D mammographic acquisition) in the CC and MLO projections. 2-D mediolateral oblique (MLO) and craniocaudad (CC) views of both breasts were obtained. CAD: Full Field Digital Mammography with Computer Added Detection was performed. COMPARISON: Comparison is made with prior study dated 10/10/2019. FINDINGS: Breast Composition: The breasts are heterogeneously dense, which may obscure small masses. There are no dominant masses or suspicious calcifications. No other significant abnormalities are identified. There has been no significant change since the prior study. BI/SCRN MAMM (CAD)W/OLIVER BILAT IMPRESSION: Stable bilateral screening mammogram. Yearly follow-up mammogram recommended. (A) ASSESSMENT CATEGORY: BIRADS Category 1: Negative. A letter regarding these results will be sent to the patient by the facility within 30 days. Approximately 10% of breast cancers are not detected by mammography. A normal mammogram should not delay biopsy of a clinically suspicious abnormality. [id number] Electronically Signed: Jose Luis Lima MD at 11:05 EST , Service support ,
== END ==
PROVIDERS: PCP Internal Medicine; Referring Provider Internal Medicine; Visit Provider Internal Medicine
DX: Z12.31 Encounter for screening mammogram for malignant neoplasm of breast (principal)
CPT/HCPCS: 77063; 77067

== ENCOUNTER → 2021-02-19 10:54 | Outpatient (CLI) | payer MEDICARE, SELFPAY ==
[2021-02-07 13:56] VITALS: BMI 33.6
--- NOTE | 2021-02-19 10:55 | CDU_ITS ---
Reason For Study: Carotid stenosis Rt. Velocities/BP Lt. Velocities/BP Prox CCA 84/14 cm/sec. Prox CCA 81/20 cm/sec. Mid CCA 79/16 cm/sec. Mid CCA 90/29 cm/sec. Dist CCA 69/22 cm/sec. Dist CCA 74/19 cm/sec. Prox ICA 53/15 cm/sec. Prox ICA 70/20 cm/sec. Mid ICA 58/20 cm/sec. Mid ICA 62/19 cm/sec. Dist ICA 72/28 cm/sec. Dist ICA 78/30 cm/sec. Rt. ICA/CCA = 0.9. Lt. ICA/CCA = 0.9. Prox ECA 68 cm/sec. Prox ECA 60/9 cm/sec. Rt. Vert. 42/15 cm/sec. Lt. Vert. 44/12 cm/sec. Right Extracranial There is intimal thickening but no significant atherosclerotic plaque noted in the right common carotid artery. There is intimal thickening but no significant atherosclerotic plaque noted in the right internal carotid artery. There is no significant atherosclerotic plaque noted in the right external carotid artery. Antegrade flow is noted in the right vertebral artery. Left Extracranial There is intimal thickening but no significant atherosclerotic plaque noted in the left common carotid artery. There is intimal thickening but no significant atherosclerotic plaque noted in the left internal carotid artery. There is intimal thickening but no significant atherosclerotic plaque noted in the left external carotid artery. Antegrade flow is noted in the left vertebral artery. Procedure Carotid Duplex [id number]. This is a Carotid Duplex examination using B-mode, color flow and specral Doppler. Exam performed in department. VL/Carotid Duplex Ultrasound Interpretation Summary Mild (<50%) stenosis right extracranial internal carotid. Mild (<50%) stenosis left extracranial internal carotid. Flow within the vertebral arteries is antegrade bilaterally. Ordering Physician: Refugio Gannon Referring Physician: Mercy Bryant Performed By: Oksana Schumacher RVT, RDCS and Student
== END ==
PROVIDERS: PCP Internal Medicine; Referring Provider Internal Medicine Cardiovascular Disease; Visit Provider Internal Medicine Cardiovascular Disease
DX: I65.23 Occlusion and stenosis of bilateral carotid arteries (principal); I49.1 Atrial premature depolarization; E78.00 Pure hypercholesterolemia, unspecified
CPT/HCPCS: 93880

== ENCOUNTER 2021-04-12 18:12 | Emergency (ER) | payer MEDICARE, SELFPAY ==
[2021-02-07 13:56] VITALS: BMI 33.6
[2021-04-12 18:14] VITALS: BP 122/69; PULSE 56; RESP 14; TEMP 36.5; O2SAT 96; BMI 33.9
--- NOTE | 2021-04-12 18:28 | EX.ED.UPPERE ---
HPI History of Present Illness Chief Complaint: Upper Extremity Injury Detail of Chief Complaint: Fall with injury to left wrist Informant: patient Narrative Narrative: Patient presents to the emergency department after sustaining a fall about an hour ago. 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 Patient tripped on the rug in the kitchen and fell trying to brace herself with the left wrist and injuring it. Patient is right-hand dominant. She denies any other injuries. [facility] Medical History (Updated 04/12/21 @ 19:[address] Rodo Campos, ) Bilateral carotid artery stenosis Ectopic atrial beats Fibromyalgia GERD (gastroesophageal reflux disease) Hiatal hernia IBS (irritable bowel syndrome) TERESO (obstructive sleep apnea) Pulmonary sarcoidosis Pure hypercholesterolemia Home Medications aspirin 81 mg PO DAILY@0800 04/03/15 [History Last Taken 01/07/19] atorvastatin 10 mg PO QHS 04/03/15 [History Last Taken Unknown] citalopram 20 mg PO DAILY 04/03/15 [History Last Taken Unknown] folic acid 1 mg PO BIDCM 04/03/15 [History Last Taken Unknown] lansoprazole 30 mg PO DAILY 04/03/15 [History Last Taken 01/17/19 08:00] albuterol sulfate 1 - 2 puff INHALATION Q6H PRN PRN 11/04/18 [History Last Taken Unknown] multivitamin with folic acid 1 tab PO DAILY 11/04/18 [History Last Taken Unknown] beclomethasone dipropionate 80 mcg/actuation HFA breath activated aerosol 2 inh INHALATION BID 11/16/19 [History Last Taken Unknown] azelastine 137 mcg (0.1 %) nasal spray aerosol 2 spray INTRANASAL BID PRN 11/23/19 [History Last Taken Unknown] propranolol 10 mg tablet 10 mg PO BID 12/11/19 [History Last Taken Unknown] magnesium oxide 400 mg PO DAILY 06/13/20 [History Last Taken Unknown] famotidine 20 mg tablet 20 mg PO BID 02/06/21 [History Last Taken Unknown] sumatriptan succinate 100 mg tablet See Rx Instructions PO .COMPLEX 02/06/21 [History Last Taken Unknown] tizanidine 2 mg tablet 2 mg PO QHS PRN 02/07/21 [History Last Taken Unknown] hydrocodone-acetaminophen 1 tab PO Q4H PRN PRN 2 Days #15 tablet 04/12/21 [Rx Last Taken Unknown] Allergy/AdvReac Type Severity Reaction Status Date / Time celecoxib [From Celebrex] Allergy Unknown Verified 04/12/21 18:13 meperidine HCl [From Demerol] Allergy Unknown Verified 04/12/21 18:13 metoclopramide HCl Allergy Unknown Verified 04/12/21 18:13 [From Reglan] SILK SUTURES Allergy Other Uncoded 04/12/21 18:13 Family History Mother CHF (congestive heart failure) Sister CHF (congestive heart failure) Sister CAD (coronary artery disease) Myocardial infarction Presence of permanent cardiac pacemaker Aortic stenosis, severe Surgical History History of fusion of cervical spine History of laminectomy History of left breast biopsy History of left heart catheterization (LHC) (~04/04/15) History of Dorie fundoplication History of repair of hiatal hernia History of ventral hernia repair vocal cord surgery Social History Smoking Status: Never smoker alcohol intake: current details: occasional substance use type: does not use caffeine: Yes (occasional) ROS ROS ED Constitutional Constitutional ED: Reports systems reviewed and no addt'l complaints, except as documented; Denies body ache(s), change in weight or chills Eyes Eyes: Denies acute decrease in peripheral vision, change in vision, double vision or loss of vision ENT ENT ED: Reports none; Denies ear pain, lip swelling, loss taste/smell, neck pain, otalgia or sore throat Cardiovascular Cardiovascular: Reports none; Denies abdominal pain, chest pain with activity, leg edema, lightheadedness, palpitations, rapid heart rate or syncope Respiratory/Chest Respiratory/Chest: Reports none; Denies change in mental status, dry cough, dyspnea, hemoptysis, shortness of breath at rest or shortness of breath with exertion Gastrointestinal Gastrointestinal: Reports none; Denies abdominal pain, change in stool character, diarrhea, hematemesis, hematochezia, melena, rectal bleeding or vomiting Genitourinary Genitourinary ED: Reports none; Denies abdominal discomfort, anuria, dysuria, genital pain or polyuria Musculoskeletal Musculoskeletal: Reports none and other Details: Left wrist injury ; Denies arthralgias, back pain, difficulty walking, extremity pain, muscle weakness or myalgias Integumentary Reports none; Denies abscess or rash Neurologic Neurologic: Reports none; Denies abnormal gait, confusion, focal weakness, frequent falls, headache(s), loss of vision, numbness, paresthesias, radicular pain, vertigo or weakness Psychiatric Psychiatric: Reports systems reviewed and no addt'l complaints, except as documented and none; Denies behavioral changes, confusion, difficulty concentrating, hallucinations, suicidal ideation, tactile hallucinations or visual hallucinations Endocrine Endocrinology: Denies none, cold intolerance, excessive sweating, fatigue or heat intolerance Hematologic/Lymphatic Hematologic/Lymphatic: Reports none; Denies anemia, easy bleeding or easy bruising Allergic/Immunologic Allergic/Immunologic ED: Denies as per HPI, none, lip swelling, mouth swelling, throat swelling, tongue swelling or hives EXAM Physical Exam Const Vital Signs: 04/12/21 18:14 Temperature 97.7 F L Temperature Source Temporal Pulse Rate 56 L Respiratory Rate 14 Blood Pressure 122/69 H Blood Pressure Mean 86 Pulse Ox 96 Oxygen Delivery Method Room Air Positive well nourished and well developed General Appearance ED: well developed and NAD HEENT Reports TM's clear and moist mucous membranes normocephalic and atraumatic; Negative for trauma or tenderness Tympanic Membrane ED: Yes TM's clear Eyes PERRL and EOMs intact bilaterally General Eye ED: Negative for pale conjunctiva or scleral icterus Neck no lymphadenopathy, supple and no JVD General: Negative for tenderness Chest Wall inspection of chest normal and palpation of chest normal Chest: Negative for tenderness Resp normal respiratory effort and clear to auscultation bilaterally Effort and Inspection: Negative for respiratory distress or pain with movement Auscultation: Negative for rhonchi, wheezes or diminished lung sounds Cardio regular rate, regular rhythm, S1 normal heart sound, S2 normal heart sound and no murmurs Peripheral Pulses: pulses 2+ throughout GI normal to inspection, nondistended, normoactive bowel sounds, soft to palpation, non-tender, non-distended and no masses Back/Spine no CVA tenderness and no thoracic nor lumbar tenderness Extremity Extremity Narrative: Left wrist-patient has soft tissue swelling diffusely about the wrist with obvious deformity. No broken skin noted. Patient has some ecchymosis and bruising noted to the volar aspect of the wrist. Neurovascular intact distally. No pain at the elbow. General Extremety ED: Negative for edema General Extremity: Negative for edema Left Upper Extremity: wrist Neuro oriented x3, CN's II-XII intact bilaterally, no sensory deficits noted and gait normal Sensorium / Orientation: awake, alert, oriented to person, oriented to place and oriented to time Motor Exam: strength 5/5 throughout and strength abnormal Psych mental status grossly normal Skin no rashes or lesions noted and no wounds MDM MDM MDM Narrative Medical decision making narrative: Case discussed with orthopedic surgeon on-call Dr. Arsenio Samayoa who asked that we place patient in a splint and give patient a sling and pain medication and follow-up with the office. At this point she has an intra-articular fracture that will likely require surgery therefore reduction was not undertaken. Radiography Diagnostic Testing: Three-view x-rays of left wrist obtained interpreted by myself as distal radius and ulnar fractures. The distal radius was impacted and displaced with fracture line extending into the radiocarpal joint. Radiology was in agreement. Procedures Upper Extremity Splints Upper Extremity Splint: Orthoglass and Volar Splint Fabrication: Fabricated Location: Left Discharge Plan Triage Chief Complaint: Upper Extremity Injury ED Provider: Rodo Campos Dx/Rx/DC Orders Clinical Impression: Distal radial fracture Instructions: ED Colles Fracture No Reduction ... Prescriptions: New hydrocodone-acetaminophen [hydrocodone-acetaminophen] 1 TABLET tablet 1 tab PO Q4H PRN PRN (Reason: Pain) 2 Days Qty: 15 RF: 0 No Action magnesium oxide 400 mg magnesium tablet 400 mg PO DAILY RF: 0 atorvastatin 10 MG tablet 10 mg PO QHS RF: 0 citalopram 20 MG tablet 20 mg PO DAILY RF: 0 lansoprazole 30 MG capsule 30 mg PO DAILY RF: 0 aspirin 81 MG tablet,chewable 81 mg PO DAILY@0800 RF: 0 folic acid 1 MG tablet 1 mg PO BIDCM RF: 0 albuterol sulfate 1 INHALER inhaler 1 - 2 puff inhalation Q6H PRN PRN (Reason: Asthma) RF: 0 multivitamin with folic acid 1 TABLET tablet 1 tab PO DAILY RF: 0 beclomethasone dipropionate 80 mcg/actuation HFA aerosol breath activated 2 inh inhalation BID RF: 0 azelastine 137 mcg (0.1 %) aerosol,spray 2 spray INTRANASAL BID PRN (Reason: prescribedf) RF: 0 propranolol 10 mg tablet 10 mg PO BID RF: 0 sumatriptan succinate 100 mg tablet See Rx Instructions PO .COMPLEX RF: 0 famotidine [Pepcid] 20 mg tablet 20 mg PO BID RF: 0 tizanidine 2 mg tablet 2 mg PO QHS PRNRF: 0 Primary Care Provider: Mercy Bryant Referrals: Arsenio Samayoa DO [STAFF PHYSICIAN] - 3-5 Days Mercy Bryant MD [Primary Care Provider] - Disposition Disposition: Home, Self Care
--- NOTE | 2021-04-12 18:42 | RAD_ITS ---
STUDY: X-RAY - LEFT WRIST REASON FOR EXAM: Female, 71 years old. injury, pain TECHNIQUE: 3 view(s) of the wrist were obtained. COMPARISON: None. FINDINGS: Comminuted, impacted fracture of the distal radius with nearly one shaft''s width displacement (dorsal). The radial fracture extends to the articular surface. Mildly comminuted fracture of the distal ulna also identified with similar degree of impaction the lesser amount of displacement. There is degenerative arthrosis of the carpometacarpal articulation of the thumb. Normal second through fifth carpometacarpal articulations. Normal visualized metacarpal bones. Diffuse soft tissue swelling. RAD/Wrist min 3 Views IMPRESSION: 1. Comminuted distal radial and ulnar fractures with displacement, impaction and angulation. Electronically Signed: Farnk Juarez MD ([place]) at 19:00 EDT , Service support ,
== END 2021-04-12 20:26 | disposition home or self-care (01) ==
PROVIDERS: Emergency Provider Emergency Medicine; PCP Internal Medicine
DX: S52.532A Colles' fracture of left radius, initial encounter for closed fracture (principal); S52.601A Unspecified fracture of lower end of right ulna, initial encounter for closed fracture; W01.10XA Fall on same level from slipping, tripping and stumbling with subsequent striking against unspecified object, initial encounter; Y93.9 Activity, unspecified; Y92.000 Kitchen of unspecified non-institutional (private) residence as the place of occurrence of the external cause; Y99.9 Unspecified external cause status; D86.0 Sarcoidosis of lung; G20 Parkinson's disease; E78.00 Pure hypercholesterolemia, unspecified; K58.9 Irritable bowel syndrome, unspecified; M79.7 Fibromyalgia; G47.33 Obstructive sleep apnea (adult) (pediatric); K21.9 Gastro-esophageal reflux disease without esophagitis; Z79.82 Long term (current) use of aspirin; Z79.899 Other long term (current) drug therapy
CPT/HCPCS: 29125; 73110; 99283

== ENCOUNTER → 2021-09-04 09:23 | Outpatient (CLI) | payer MEDICARE, SELFPAY ==
[2021-09-04 09:29] VITALS: BP 128/71; PULSE 52; RESP 16; TEMP 35.6; O2SAT 95
[2021-09-04] MEDS: 0.9% NaCl Peripheral Flush Adult/Peds IV ×2 (09:37→09:59)
[2021-09-04] MEDS: Zoledronic Acid 5 MG 100 ML 400 MG IV (09:38)
== END ==
PROVIDERS: PCP Internal Medicine; Referring Provider Internal Medicine; Visit Provider Internal Medicine
DX: M81.0 Age-related osteoporosis without current pathological fracture (principal)
CPT/HCPCS: 96365; A4216; J3489

== ENCOUNTER 2021-09-26 15:57 | Outpatient (CLI) | payer MEDICARE, SELFPAY | END 2021-09-26 23:59 | disposition short-term general hospital (02) | PROVIDERS: PCP Internal Medicine; Visit Provider Internal Medicine | DX: R05.9 Cough, unspecified (principal) | CPT/HCPCS: 87635; U0003; U0005 ==

== ENCOUNTER 2021-10-15 09:55 | Outpatient (CLI) | payer MEDICARE, SELFPAY ==
--- NOTE | 2021-10-15 09:58 | BI_ITS ---
MAMMOGRAPHY - BILATERAL SCREENING REASON FOR EXAM: Female, 71 years old. Routine annual screening examination. PERTINENT HISTORY: Non-contributory. Remote left excisional breast biopsy. TECHNIQUE: Digital bilateral breast oliver (3D mammographic acquisition) in the CC and MLO projections. 2-D mediolateral oblique (MLO) and craniocaudad (CC) views of both breasts were obtained. CAD: Full Field Digital Mammography with Computer Added Detection was performed. COMPARISON: Comparison is made with prior examination dated 10/14/2020 and 10/10/2019. FINDINGS: Breast Composition: The breasts are heterogeneously dense, which may obscure small masses. There are no dominant masses or suspicious calcifications. Stable benign-appearing bilateral axillary lymph nodes. No other significant abnormalities are identified. There has been no significant change since the prior study. BI/SCRN MAMM (CAD)W/OLIVER BILAT IMPRESSION: Stable bilateral screening mammogram. Yearly follow-up mammogram recommended. (A) ASSESSMENT CATEGORY: BIRADS Category 2: Benign. A letter regarding these results will be sent to the patient by the facility within 30 days. Approximately 10% of breast cancers are not detected by mammography. A normal mammogram should not delay biopsy of a clinically suspicious abnormality. [id number] Electronically Signed: Jose Luis Lima MD at 11:00 EST ,
--- NOTE | 2021-10-15 10:04 | BD_ITS ---
STUDY: DUAL ENERGY X-RAY ABSORPTIOMETRY / DXA REASON FOR EXAM: Female, 71 years old. M810. Patient is postmenopausal. TECHNIQUE: Bone Mineral Density (BMD) measurements of lumbar spine and bilateral hips were obtained. COMPARISON: Comparison is made with prior study dated 04/10/2020. FINDINGS: Lumbar Spine (L1-L4): g/cm2 (0.850) / T-score (-1.8) / Z-score (0.4) Findings are suggestive of osteopenia with a moderate fracture risk. Left Femur Total: g/cm2 (0.934) / T-score (-0.1) / Z-score (1.5) Left Femoral Neck: g/cm2 (0.611) / T-score (-2.1) / Z-score (-0.3) Right Femur Total: g/cm2 (0.872) / T-score (-0.7) / Z-score (1.0) Right Femoral Neck: g/cm2 (0.576) / T-score (-2.5) / Z-score (-0.6) The T-Scores on the most recent prior examination were: Lumbar Spine (L1-L4): There has been improvement of bone density since the previous examination. Left Femur Total: which represents an improvement of 5.9%. Right Femur Total: which represents an improvement of 4.4%. BD/Dexa Bone Density Study IMPRESSION: The patient is considered osteopenic as outlined below according to World Leonel Organization (WHO) criteria with a high fracture risk. There has been improvement of bone density since the previous examination. Reference Information: The T-score is the number of standard deviations above or below the standard which is normal for young adults at their peak bone mineral density. The World Health Organization (WHO) interprets the T-scores as follows: Above -1 Normal bone density Between -1 and -2.5 Osteopenia Equal to / or below -2.5 Osteoporosis As a practical clinical guideline, osteopenia may be graded as follows: Mild -1 through -1.5 Moderate -1.6 through -2.0 Severe -2.1 through -2.4 The Z-score is the number of standard deviations above or below age-matched controls. A Z-score of less than -1.5 would be considered abnormal. References: 1. NIH Osteoporosis and Related Bone Diseases www osteo.org 2. International Society for Clinical Densitometry www iscd.org 3. National Osteoporosis Foundation www nof.org Electronically Signed: Jose Luis Lima MD at 15:26 EST ,
== END 2021-10-15 23:59 | disposition short-term general hospital (02) ==
LOC: OPBD 09:56
PROVIDERS: PCP Internal Medicine; Referring Provider Internal Medicine; Visit Provider Internal Medicine
DX: M81.0 Age-related osteoporosis without current pathological fracture (principal); Z78.0 Asymptomatic menopausal state; Z12.31 Encounter for screening mammogram for malignant neoplasm of breast
CPT/HCPCS: 77063; 77067; 77080

== ENCOUNTER 2021-10-24 11:45 | Outpatient (CLI) | payer MEDICARE, SELFPAY ==
[2021-10-24 12:23] LABS: D-Dimer Quantitative (DVT/PE) 0.42 FEU/ug/m (0.27-0.49)
[2021-10-24 12:27] LABS: Troponin-I HS 5 pg/mL (3.0-54.0)
== END 2021-10-24 23:59 | disposition short-term general hospital (02) ==
LOC: LAB 11:46
PROVIDERS: PCP Internal Medicine; Referring Provider Internal Medicine; Visit Provider Internal Medicine
DX: R07.81 Pleurodynia (principal)
CPT/HCPCS: 36415; 84484; 85379

== ENCOUNTER 2021-11-17 14:30 | Outpatient (RCR) | payer MEDICARE, SELFPAY ==
--- NOTE | 2021-08-18 14:57 | HP.PTEVAL ---
Patient's Visit Information SHANTANU BOWIE is a 71 year old F referred to Physical Therapy by Dr. Keenan Bocanegra MD with a diagnosis of PD, Spinal stenosis with neurogenic claudication, weakness ankles. Date of Evaluation: 08/18/21 Physical Therapist: JUSTINA Tipton - Visit Plan Frequency: 2x /Week Duration: 2 Months Plan: 2X/ week for 8 weeks for balance assessment on NeuroCOM, ankle strength, static and dynamic balance, gait training with HEP. Pt might benefit from B AFO's if continues to trip on her own toes. - Subjective Pt thinks that 8 years ago she started to have issues and probably started with PD. She had trouble with riding a bike and falls with tripping. She thinks she was Dx in 2018 and had tremors bad but not so bad now. Pt reports that she has trouble with weakness in her legs, randall ankles and balance. She is doing exercises at home with chair exercises and some with balance. She got a little worse this summer when her sister was sick with a pacemaker and was with her for a month and was not doing exercises and got bad and then broke her wrist and now just getting back to exerices. She fell and broke her wrist and had to have surgery. She has stiffness and trouble with stopping once moving. She can not stand still. she can maintain her balance if she is constantly moving. Steps: she needs a railing and walks with a step 2 pattern and higher steps are out. Sit to stand: able to get out of a normal chair without using her arms. - Objective Gait: walks with a straight cane with steppage gait and increase veering. CATSIB: 57. FGA: 9. LE MMT: B hip flex 4-/5, R knee ext 4-/5 and L knee ext 4/5, B knee flex 4-/5, B ankle DF 3-/4 and B ankle PF 3-/5, B hip abd 4/5,. Pt is unable to raise her heels and toes with UE support. Sit to stand: able to get up without using her UE. Stairs: up and down the steps recip with slow speed using B rails to help pull self up. Pt was able to perform sitting opp arm and leg X 10 each extremity with out messing up. - Balance/Special Test Scores Functional Gait Assessment Score: 9 % Disability: 70.0000 CATSIB Score (Max score 120 seconds): 57 Lower Extremity Functional Score: 46 - Goals Goal 1:: I HEP Goal Time Frame: 4-6 Weeks Goal 2:: Increase B ankle strength to 3+/5 Goal Time Frame: 4-6 Weeks Goal 3:: Be able to improve balance by increasing CATSIB score by 10 points to decrease fall risk (score at eval was 57) Goal Time Frame: 4-6 Weeks Goal 4:: Increase FGA by 5 points to decrease fall risk (score at eval was 9) Goal Time Frame: 4-6 Weeks Goal 5:: Be able to walk 250 feet without catching toes on the ground with a straight cane. - Rehabilitation Potential Rehabilitation Potential: Good - Anticipated Interventions Patient/Client Instruction: Educate patient on: Condition, Plan of Care For the Purpose of:: To increase ROM, To improve nutrient delivery to tissue, To improve muscle performance and motor function, To improve ability to perform ADL's, To increase tolerance to activity/condition/position, To improve performance and independence with ADL's, To decrease level of supervision to perform tasks, To improve ability of physical actions for home/community/work/leisure, To improve gait and locomotor functions, To improve health of tissue, To increase flexibility/ROM, To improve balance, To improve safety with gait Therapeutic Exercise to Include: Strength training, Balance training, Postural training, Flexibilty training, Gait and locomotor training, Passive ROM, Active ROM For the Purpose of:: To improve muscle performance and motor function, To improve ability to perform ADL's, To increase tolerance to activity/condition/position, To improve performance and independence with ADL's, To decrease level of supervision to perform tasks, To improve ability of physical actions for home/community/work/leisure, To improve gait and locomotor functions, To improve health of tissue, To improve endurance, To improve balance, To improve safety with gait Functional Training to Include: Gait training For the Purpose of:: To improve gait and locomotor functions, To improve safety with gait Manual Therapy Techniques to Include: Passive ROM For the Purpose of:: To increase ROM Thank you for the opportunity to evaluate your patient. For Medicare and Medicare HMO plans, please review the plan of care and approve it. It will need to be FAXED BACK to us at [phone] for Medicare purposes. For Medicare only, by signing this I certify the plan of care. Please let me know if there are questions or concerns regarding this plan of care. Physician Signature: Date:
--- NOTE | 2021-08-20 10:38 | HP.PTCOM_ITS ---
PT Communication Note 08/20/[address] Keenan Bocanegra MD , Thank you for the referral of Nichelle to [facility] for balance assessment. I have enclosed a copy of the results for your review. Please remember the dark lines are the abnormalities for her age in the testing. In summation, her Sensory organization test showed vestibular deficits. her Motor Control Test showed latency in posterior musculature and inability to correct position. Her Limits of Stability test showed an inability to utilize her posterior lower leg musculature to shift weight in forward direction. With these results in mind, her plan of care is appropriate and we will kumar her balance exercises to these deficits. Should be noted that these are far worse in the gastroc soleus musculature than her last test 12 yrs ago. Thank you for this referral. Sincerely, Erick Lange DPT, OCS, CSCS Contact Information
--- NOTE | 2021-09-17 11:30 | HP.PTREVAL ---
Dr. Keenan Bocanegra MD, It has been my pleasure to treat SHANTANU BOWIE over the last 10 visits for PD, Spinal stenosis with neurogenic claudication, weakness ankles. Please see the progress note below for an update on the physical therapy plan of care! Subjective: Pt has noticed some improvement if she goes to turn quick she is able to catch herself. Her R is worse than the L. She is still catching her toe when she walks. She has not fallen since her initial visit. She has noticed no improvement with her ankle strength. Most of the time she catches herself. Pt goes back to Neurologist on the . Objective/Function: CATSIB 97 (EC standing on foam is only 8 seoconds). FGA 9. BW walking: short strides and not fluent Plan Plan: ADD BW walking and walking with head turns.... 2X/ week for 8 weeks for balance(emphasize FW weight shift and vestibular exercises based on today's results(ec and or irregular surface statically and dynamically)) assessment on NeuroCOM, ankle strength, static and dynamic balance, gait training with HEP. Pt might benefit from B AFO's if continues to trip on her own toes. Balance/Gait/Functional tests - Balance/Special Test Scores Functional Gait Assessment Score: 9 % Disability: 70.0000 CATSIB Score (Max score 120 seconds): 97 Lower Extremity Functional Score: 43 Goals Goal 1:: I HEP Goal Time Frame: 4-6 Weeks Goal Progress: Goal Met Goal 2:: Increase B ankle strength to 3+/5 Goal Time Frame: 4-6 Weeks Goal Progress: Not Progressing Goal 3:: Be able to improve balance by increasing CATSIB score by 10 points to decrease fall risk (score at eval was 57) Goal Time Frame: 4-6 Weeks Goal Progress: Progressing Goal 4:: Increase FGA by 5 points to decrease fall risk (score at eval was 9) Goal Time Frame: 4-6 Weeks Goal Progress: Not Progressing Goal 5:: Be able to walk 250 feet without catching toes on the ground with a straight cane. Goal Progress: Progressing Goal 6:: Be able to walk W 60 feet with out stopping or slowing down or veering. Goal Time Frame: 2-4 Weeks Anticipated Interventions Patient/Client Instruction: Educate patient on: Condition, Plan of Care For the Purpose of:: To increase ROM, To improve nutrient delivery to tissue, To improve muscle performance and motor function, To improve ability to perform ADL's, To increase tolerance to activity/condition/position, To improve performance and independence with ADL's, To decrease level of supervision to perform tasks, To improve ability of physical actions for home/community/work/leisure, To improve gait and locomotor functions, To improve health of tissue, To increase flexibility/ROM, To improve balance, To improve safety with gait Therapeutic Exercise to Include: Strength training, Balance training, Postural training, Flexibilty training, Gait and locomotor training, Passive ROM, Active ROM For the Purpose of:: To improve muscle performance and motor function, To improve ability to perform ADL's, To increase tolerance to activity/condition/position, To improve performance and independence with ADL's, To decrease level of supervision to perform tasks, To improve ability of physical actions for home/community/work/leisure, To improve gait and locomotor functions, To improve health of tissue, To improve endurance, To improve balance, To improve safety with gait Functional Training to Include: Gait training For the Purpose of:: To improve gait and locomotor functions, To improve safety with gait Manual Therapy Techniques to Include: Passive ROM For the Purpose of:: To increase ROM Please do not hesitate to contact me at [phone] by phone or if you have questions or concerns regarding this new plan of care! Sincerely, JUSTINA Tipton
--- NOTE | 2021-11-17 16:02 | HP.PTDCSUM_ITS ---
It has been my pleasure to treat SHANTANU BOWIE referred by Dr. Keenan Bocanegra MD, with the diagnosis of PD, Spinal stenosis with neurogenic claudication, weakness ankles for a total of 17 visit(s). Discharge Date: 11/17/21 Please see the following information for a summary of their discharge status. Subjective: Pt has noticed a big change in the last 6 months and the ability to stand etc. Her has to bring the laundry down and they he carries it up. Her daughter comes to mop. 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 Working on [employer] program at home % Improvement: 40 Objective/Function: CATSIB 95. FGA: 11. Gait: walks with a straight cane with her B AFO's with very min to little veering unless she turns her head too much and that will offset her balance Goal 1:: I HEP Goal Progress: Goal Met Goal 2:: Increase B ankle strength to 3+/5 Goal Progress: Not Progressing Goal 3:: Be able to improve balance by increasing CATSIB score by 10 points to decrease fall risk (score at eval was 57) Goal Progress: Goal Met Goal 4:: Increase FGA by 5 points to decrease fall risk (score at eval was 9) Goal Progress: Progressing Goal 5:: Be able to walk 250 feet without catching toes on the ground with a straight cane. Goal Progress: Goal Met Goal 6:: Be able to walk W 60 feet with out stopping or slowing down or veering. Goal Progress: Goal Met Plan: DC PT to HEP and PD class Discharge Comments: DC PT If there are questions or concerns regarding this patient's physical therapy, please feel free to call me at [phone]. Thank you for the referral of this patient. Sincerely, Betty Garcia, MPT Balance/Gait/Functional tests - Balance/Special Test Scores Functional Gait Assessment Score: 11 % Disability: 63.3400 CATSIB Score (Max score 120 seconds): 93 Lower Extremity Functional Score: 29
== END 2021-11-17 19:00 | disposition home or self-care (01) ==
LOC: PT 14:30
PROVIDERS: PCP Internal Medicine; Visit Provider Psychiatry & Neurology Neurology
DX: G20 Parkinson's disease (principal); M48.062 Spinal stenosis, lumbar region with neurogenic claudication; G62.9 Polyneuropathy, unspecified
CPT/HCPCS: 97110; 97116; 97162; 97530; 97750

== ENCOUNTER 2022-03-03 11:10 | Outpatient (CLI) | payer MEDICARE, SELFPAY ==
--- NOTE | 2022-03-03 11:12 | RAD_ITS ---
STUDY: X-RAY CHEST REASON FOR EXAM: Female, 71 years old. SARCOIDOSIS TECHNIQUE: PA and lateral views of the chest. COMPARISON: Comparison is made with prior examination 10/29/2019. FINDINGS: The lungs are clear and expanded. There is no demonstrated pleural abnormality. Normal size heart. Calcified azygos lymph node. Normal visualized pulmonary arteries. There is atherosclerotic tortuosity of the aortic arch and descending thoracic aorta. There are diffuse degenerative changes of the visualized thoracic spine. There is demineralization of the thoracic vertebrae. Lower cervical fusion. There is no demonstrated abnormality of the visualized soft tissue structures of the upper abdomen. RAD/Chest PA and Lateral IMPRESSION: Stable examination. No acute abnormality is seen. Electronically Signed: Jose Luis Lima MD at 13:17 EDT ,
[2022-03-03 16:14] LABS: D-Dimer Quantitative (DVT/PE) 0.27 FEU/ug/m (0.27-0.49)
[2022-03-03 16:19] LABS: Erythrocyte Sedimentation Rate 16 mm/hr (0-30)
[2022-03-03 16:50] LABS: CRP, High Sensitivity Cardiac 1.67 mg/L
[2022-03-05 21:47] LABS: Angiotensin Convert Enzyme 40 U/L (14-82)
== END 2022-03-03 23:59 | disposition home or self-care (01) ==
LOC: MTRAD 11:11
PROVIDERS: PCP Internal Medicine; Referring Provider Internal Medicine Pulmonary Disease; Visit Provider Internal Medicine Pulmonary Disease
DX: D86.9 Sarcoidosis, unspecified (principal)
CPT/HCPCS: 36415; 71046; 82164; 85379; 85652; 86141

== ENCOUNTER 2022-04-24 14:21 | Emergency (ER) | payer MEDICARE, SELFPAY ==
[2022-04-24 14:22] VITALS: BP 123/107; PULSE 69; RESP 15; TEMP 35.8; O2SAT 98; BMI 34.1
--- NOTE | 2022-04-24 15:53 | RAD_ITS ---
INDICATION: coughing/choking, eval for aspiration EXAMINATION/TECHNIQUE: X-RAY - XR Chest 2 Views COMPARISON: None. FINDINGS: LINES/DEVICES: Internal fixation of the lower cervical spine is seen. LUNGS: Peribronchial cuffing visualized bilaterally otherwise the bronchovascular interstitial lung markings unremarkable No consolidation/infiltrate, edema or effusion. No pneumothorax. MEDIASTINUM AND CARDIOVASCULAR STRUCTURES: Cardiac silhouette is not enlarged. BONES AND SOFT TISSUES: Degenerative bone changes, levoscoliosis of the thoracic spine. Decreased anterior height of midthoracic vertebral body seen.. RAD/Chest PA and Lateral IMPRESSION: Peribronchial cuffing visualized with recommend clinical correlation for acute bronchitis, no evidence of lung opacification to suggest infiltrate or aspiration pneumonia. Electronically Signed: Go Reyes MD at 16:12 EDT ,
--- NOTE | 2022-04-24 16:01 | EX.ED.DYSGE1 ---
HPI History of Present Illness Chief Complaint: Other, Pain/Inj Informant: patient Onset/Context/Timing Onset: Days (3) Timing: Intermittent Quality: FB sens Location: throat Current Severity: Moderate Maximum Severity: Moderate Narrative Narrative: Patient states she has self diagnosed herself with having esophageal spasm, for the last 5 or 6 months she randomly gets intermittent throat tightening and twisting that is uncomfortable and then let up and goes away. She has a history of Parkinson's. She also has vocal cord dysfunction/issues. She follows with Dr. Varela for that. She states in the last 3 days, she has started having foreign body sensation that started while eating and ever since, she has had occasional choking and coughing when swallowing, vomiting when trying to swallow small things such as rice, but she is occasionally able to swallow small food pieces and liquids without difficulty. She states she occasionally feels a little short of breath but cannot tell if that is something new or not. She denies any fevers or chills or chest pain. She was directed to the emergency department after discussing with her PCP. [facility] Medical History (Updated 04/24/22 @ 16:[address] Jean Estes MD) Bilateral carotid artery stenosis Ectopic atrial beats Fibromyalgia GERD (gastroesophageal reflux disease) Hiatal hernia IBS (irritable bowel syndrome) TERESO (obstructive sleep apnea) Pulmonary sarcoidosis Pure hypercholesterolemia Vocal cord paralysis Home Medications aspirin 81 mg chewable tablet 81 mg PO DAILY@0800 04/03/15 [History Last Taken 01/07/19] atorvastatin 10 mg tablet 10 mg PO QHS 04/03/15 [History Last Taken Unknown] citalopram 20 mg tablet 20 mg PO DAILY 04/03/15 [History Last Taken Unknown] folic acid 1 mg tablet 1 mg PO BIDCM 04/03/15 [History Last Taken Unknown] lansoprazole 30 mg capsule,delayed release 30 mg PO DAILY 04/03/15 [History Last Taken 01/17/19 08:00] albuterol sulfate 90 mcg/actuation aerosol inhaler 1 - 2 puff inhalation Q6H PRN PRN Asthma 11/04/18 [History Last Taken Unknown] multivitamin with folic acid 400 mcg tablet 1 tab PO DAILY 11/04/18 [History Last Taken Unknown] azelastine 137 mcg (0.1 %) nasal spray aerosol 2 spray intranasal BID PRN md prescribedf 11/23/19 [History Last Taken Unknown] propranolol 10 mg tablet 10 mg PO BID 12/11/19 [History Last Taken Unknown] magnesium oxide 400 mg PO DAILY 06/13/20 [History Last Taken Unknown] famotidine 20 mg tablet (Pepcid) 20 mg PO BID 02/06/21 [History Last Taken Unknown] sumatriptan succinate 100 mg tablet See Rx Instructions PO .COMPLEX 02/06/21 [History Last Taken Unknown] tizanidine 2 mg tablet 2 mg PO QHS PRN Spasms 02/07/21 [History Last Taken Unknown] carbidopa 25 mg-levodopa 100 mg tablet 1 tab PO QHS 10/03/21 [History Last Taken Unknown] fluticasone furoate 200 mcg-vilanterol 25 mcg/dose inhalation powder (Breo Ellipta) 1 inh inhalation DAILY 04/24/22 [History Last Taken Unknown] Allergy/AdvReac Type Severity Reaction Status Date / Time celecoxib [From Celebrex] Allergy Unknown Verified 04/24/22 14:26 meperidine HCl [From Demerol] Allergy Unknown Verified 04/24/22 14:26 metoclopramide HCl Allergy Unknown Verified 04/24/22 14:26 [From Reglan] suture Allergy NEEDS Verified 04/24/22 14:26 FOLLOW-UP Family History Mother CHF (congestive heart failure) Sister CHF (congestive heart failure) Sister CAD (coronary artery disease) Myocardial infarction Presence of permanent cardiac pacemaker Aortic stenosis, severe Surgical History History of fusion of cervical spine History of laminectomy History of left breast biopsy History of left heart catheterization (LHC) (~04/04/15) History of Dorie fundoplication History of repair of hiatal hernia History of ventral hernia repair vocal cord surgery Social History Smoking Status: Never smoker alcohol intake: current details: occasional substance use type: does not use caffeine: Yes (occasional) ROS ROS ED Constitutional Constitutional ED: Denies chills or fever(s) Eyes Eyes: Denies change in vision or diplopia ENT ENT ED: Reports as per HPI, dysphagia and sore throat; Denies rhinorrhea Cardiovascular Cardiovascular: Denies chest pain or palpitations Respiratory/Chest Respiratory/Chest: Reports as per HPI, cough and dyspnea Gastrointestinal Gastrointestinal: Denies abdominal pain, diarrhea, nausea or vomiting Genitourinary Genitourinary ED: Denies dysuria or hematuria Musculoskeletal Musculoskeletal: Denies back pain or neck pain Integumentary Denies abscess or rash Neurologic Neurologic: Reports tremor(s); Denies headache(s), paresthesias or weakness Psychiatric Psychiatric: Denies anxiety or suicidal thoughts EXAM Physical Exam Const Vital Signs: 04/24/22 14:22 04/24/22 15:32 Temperature 96.5 F L Temperature Source Temporal Pulse Rate 69 Respiratory Rate 15 Respiratory Effort Normal Non-Labored Respiratory Pattern Normal Blood Pressure 123/107 H Blood Pressure Mean 112 Pulse Ox 98 Oxygen Delivery Method Room Air Positive well nourished and well developed General Appearance ED: well developed and NAD HEENT Reports moist mucous membranes HEENT Narrative: Posterior oropharynx clear. No trismus. No stridor. No distress. normocephalic and atraumatic Eyes PERRL and EOMs intact bilaterally Neck full ROM and supple General: Negative for tenderness Resp normal respiratory effort and clear to auscultation bilaterally Cardio regular rate, regular rhythm and no murmurs Rate: Negative for tachycardic GI non-tender and non-distended Auscultation: normoactive bowel sounds Palpation: soft Back/Spine no CVA tenderness General Back: other FROM Extremity normal to inspection General Extremety ED: Negative for edema, pulses abnormal or tenderness General Extremity: Negative for edema or pulses abnormal Neuro oriented x3, CN's II-XII intact bilaterally and no sensory deficits noted Sensorium / Orientation: awake and alert Motor Exam: strength 5/5 throughout Skin no rashes or lesions noted and no wounds MDM MDM MDM Narrative Medical decision making narrative: I did a two-view chest x-ray, on my interpretation it is negative for aspiration pneumonia or pneumonitis. I discussed with Dr. Varela, he is still in the office and able to fit the patient in for a quick nasopharyngeal scope. This would help diagnose the issue, which I am unable to perform here in the emergency department. I do not think this is emergent since she is able to pass liquids, and I do not think a CT is indicated, so I think this is the best course of action. She will go over to the office to be seen. Discharge Plan Triage Chief Complaint: Other, Pain/Inj ED Provider: Jean Estes Dx/Rx/DC Orders Clinical Impression: Globus sensation, Dysphagia Instructions: ED Dysphagia (Adult) Prescriptions: No Action magnesium oxide 400 mg magnesium tablet 400 mg PO DAILY carbidopa-levodopa 25-100 mg tablet 1 tab PO QHS atorvastatin 10 MG tablet 10 mg PO QHS citalopram 20 MG tablet 20 mg PO DAILY lansoprazole 30 MG capsule 30 mg PO DAILY aspirin 81 MG tablet,chewable 81 mg PO DAILY@0800 folic acid 1 MG tablet 1 mg PO BIDCM albuterol sulfate 1 INHALER inhaler 1 - 2 puff inhalation Q6H PRN PRN (Reason: Asthma) multivitamin with folic acid 1 TABLET tablet 1 tab PO DAILY azelastine 137 mcg (0.1 %) aerosol,spray 2 spray INTRANASAL BID PRN (Reason: md prescribedf) fluticasone furoate-vilanterol [Breo Ellipta] 200-25 mcg/dose blister with device 1 inh INHALATION DAILY propranolol 10 mg tablet 10 mg PO BID sumatriptan succinate 100 mg tablet See Rx Instructions PO .COMPLEX Rx Instructions: take 1 tab at onset of headache; if no relief, may repeat 1 tab after at least 2 hrs; max = 2 tabs/24 hrs PO famotidine [Pepcid] 20 mg tablet 20 mg PO BID tizanidine 2 mg tablet 2 mg PO QHS PRN (Reason: Spasms) Primary Care Provider: Mercy Bryant Referrals: Wenceslao Varela MD [Med Staff - Active Staff] - As soon as possible Mercy Bryant MD [Primary Care Provider] - Disposition Disposition: Home, Self Care
[2022-04-24 16:03] VITALS: RESP 16
== END 2022-04-24 16:16 | disposition home or self-care (01) ==
PROVIDERS: Emergency Provider Emergency Medicine; PCP Internal Medicine; Visit Provider Emergency Medicine
DX: R13.10 Dysphagia, unspecified (principal); G20 Parkinson's disease; R09.89 Other specified symptoms and signs involving the circulatory and respiratory systems; J38.00 Paralysis of vocal cords and larynx, unspecified; E78.00 Pure hypercholesterolemia, unspecified; G47.33 Obstructive sleep apnea (adult) (pediatric); Z79.82 Long term (current) use of aspirin; J02.9 Acute pharyngitis, unspecified
CPT/HCPCS: 71046; 87070; 99282

== ENCOUNTER → 2022-04-24 | Outpatient (CLI) | payer MEDICARE, SELFPAY | END | disposition home or self-care (01) | PROVIDERS: PCP Internal Medicine; Visit Provider Otolaryngology | DX: J02.9 Acute pharyngitis, unspecified (principal) | CPT/HCPCS: 87070 ==

== ENCOUNTER → 2022-05-04 | Outpatient (CLI) | payer MEDICARE, SELFPAY ==
--- NOTE | 2022-05-04 10:50 | RAD_ITS ---
INDICATION: DYSPHAGIA EXAMINATION/TECHNIQUE: Barium thin and thick oral contrast , gas bubbles, and barium pill were administered to the patient. Total Fluoroscopic Time: 12 seconds AND number of Fluoroscopic Images: 13 COMPARISON: Esophagram from 03/02/2017 FINDINGS: Redemonstration of postoperative changes consistent with CARLOS fundoplication. There is redemonstration of a small hiatal hernia and short segment area of luminal narrowing in the distal esophagus just proximal to the gastroesophageal junction. There is similar appearing mild distention of the esophagus proximal to the area of narrowing. There is redemonstration of a small esophageal diverticulum which fills with contrast in the distal esophagus. These findings appear stable since 2017. There is mild delay in transit and emptying at the gastroesophageal junction. There is no significant reflux. Mucosa appears normal. RAD/Esophagus Dual Contrast IMPRESSION: Carlos postoperative changes, likely small stricture in the distal esophagus, small hiatal hernia, and small esophageal diverticulum are stable since 2017. Mild delay in transit and emptying at the gastroesophageal junction. Electronically Signed: Peterson Fuchs, at 15:00 EDT ,
== END | disposition home or self-care (01) ==
LOC: RAD 09:38
PROVIDERS: PCP Internal Medicine; Visit Provider Otolaryngology
DX: R13.10 Dysphagia, unspecified (principal)
CPT/HCPCS: 74221

== ENCOUNTER 2022-07-06 07:12 | Day surgery (SDC) | payer MEDICARE, SELFPAY ==
[2022-07-06] VITALS (7 sets, daily range): BP systolic 111–141; BP diastolic 64–83; PULSE 53–57; RESP 14–16; TEMP 36.4–37.2; O2SAT 96–100; BMI 34.7
--- NOTE | 2022-07-06 07:50 | RAD_ITS ---
PROCEDURE: Caudal block. DATE OF EXAMINATION: 07/06/2022. INDICATION: Female, 72 years old. Chronic low back pain. FLUOROSCOPY TIME (if supplied): (6 seconds.) minutes/seconds. One image was obtained. RAD/Fluor Guidance for Spine Inj IMPRESSION: Intraoperative fluoroscopic service provided for caudal block. Electronically Signed: Jose Luis Lima MD at 9:50 EDT ,
[2022-07-06] MEDS: Lactated Ringers 1,000 ML 15 ML IV (07:53)
[2022-07-06] MEDS: MethylPREDNISolone Acetate 80 MG/ML Vial (09:30)
[2022-07-06] MEDS: Lidocaine 1% (30 ml sdv) 30 ML Vial (09:31)
[2022-07-06] MEDS: 0.9% Normal Saline (Pres. free 10 ML Vial (09:31)
[2022-07-06] MEDS: Bupivacaine 0.25% 30 ML Vial OPERA.SITE (09:32)
--- NOTE | 2022-07-06 10:14 | OP.PCM_ITS ---
Report of Operation Date of Procedure: 07/06/22 Pre-Operative Diagnosis: Lumbosacral radiculopathy, lumbosacral degenerative di sc disease, lumbosacral spinal stenosis Post-Operative Diagnosis: Lumbosacral radiculopathy, lumbosacral degenerative disc disease, lumbosacral spinal stenosis Surgery/Procedure Performed:: Caudal epidural steroid injection under fluoroscopic guidance Type of Anesthesia: MAC Estimated Blood Loss (mL): Minimal Description of Procedure: DESCRIPTION OF PROCEDURE: History and physical of today was reviewed. Risks and benefits of the procedure were explained. The patient understood and agreed to proceed. Informed consent was obtained. IV inserted per routine protocol. The patient was taken to the operating room and placed in the prone position with a pillow positioned underneath the abdomen. The lower back and tailbone area was prepped and draped in a sterile fashion using iodine x3. Under fluoroscopy guidance on a lateral view, the caudal space was identified. The skin and subcutaneous tissue was anesthetized with approximately 3 mL of 1% lidocaine using a 25-gauge regular needle. Under direct visualization with fluoroscopy, using a 22-gauge 3-1/2-inch spinal needle, the needle was advanced via the skin through the sacral hiatus. The tip of the needle was passed through the sacrococcygeal ligament and advanced to approximately S4 area. After negative aspiration of blood or CSF, a total of 3 mL of contrast was injected to confirm correct placement of the needle as well as cephalad spread. The spread was followed to approximately L5 area. After confirmation on AP as well as lateral view and repeated negative aspiration, a total of 15 mL of preservative-free 0.125% Marcaine with 80 mg of Depo-Medrol was injected easily. The needle was then removed intact. The patient experienced no sign or symptoms of intrathecal or intravascular injection. The patient experienced no paresthesia. The procedure was completed without any apparent difficulty or any complications. The patient appeared to tolerate it well. ASSESSMENT AND PLAN: This is a 72-year-old female with lumbosacral radiculopathy, lumbosacral degenerative disc disease, lumbosacral spinal stenosis status post caudal epidural steroid injection, patient will continue her current medications, patient will follow in approximately 2 weeks for reevaluation. Complications None
== END 2022-07-06 10:31 | disposition home or self-care (01) ==
LOC: SDC 07:13 → AC 07:15
PROVIDERS: PCP Internal Medicine; Referring Provider Anesthesiology Pain Medicine; Visit Provider Anesthesiology Pain Medicine
PROC: 3E0S3BZ Introduction of Anesthetic Agent into Epidural Space, Percutaneous Approach (ICD-10-PCS; CPT 62282; principal; 2022-07-06 08:45)
DX: M51.17 Intervertebral disc disorders with radiculopathy, lumbosacral region (principal); M48.07 Spinal stenosis, lumbosacral region; I25.10 Atherosclerotic heart disease of native coronary artery without angina pectoris; I10 Essential (primary) hypertension; K21.9 Gastro-esophageal reflux disease without esophagitis; G47.33 Obstructive sleep apnea (adult) (pediatric); Z79.82 Long term (current) use of aspirin; Z79.899 Other long term (current) drug therapy
CPT/HCPCS: 62323; 64483; 77003; J7120; J3490

== ENCOUNTER 2022-08-24 08:09 | Day surgery (SDC) | payer MEDICARE, SELFPAY ==
[2022-08-24 08:41] VITALS: BP 123/63; PULSE 56; RESP 16; TEMP 36.1; O2SAT 99; BMI 34.8
[2022-08-24] MEDS: Lactated Ringers 1,000 ML 15 ML IV (08:56)
--- NOTE | 2022-08-24 10:00 | RAD_ITS ---
STUDY: X-RAY - LUMBAR SPINE REASON FOR EXAM: Female, 72 years old. MEDIAL BRANCH NERVE BLOCK L4-S1,BILAT TECHNIQUE: 7 view(s) of the lumbar spine were obtained. COMPARISON: None FINDINGS: 7 limited intraoperative studies performed as the patient has undergone bilateral L4 and S1 nerve blocks. RAD/L/S Spine Min 4 Views IMPRESSION: No intraoperative complications during L4 and S1 nerve blocks Electronically Signed: Alf Domingo MD at 19:07 EST ,
[2022-08-24] MEDS: Lidocaine 1% (5 ml sdv) 5 ML Vial (10:08)
[2022-08-24] MEDS: MethylPREDNISolone Acetate 80 MG/ML Vial (10:08)
--- NOTE | 2022-08-24 10:12 | PCM.OPRPT ---
Report of Operation Date of Procedure: 08/24/22 Description of Surgical Findings:: Pre-Operative Diagnosis: Lumbosacral spondylosis, lumbosacral degenerative disc disease, lumbar facet arthropathy Post-Operative Diagnosis: Lumbosacral spondylosis, lumbosacral degenerative disc disease, lumbar facet arthropathy Description of Surgical Findings:: PROCEDURE PERFORMED:? Bilateral lumbar branch block at L4, L5, and S1. ANESTHESIA:? MAC. BLOOD LOSS:? Minimal. COMPLICATIONS:? None. DESCRIPTION OF PROCEDURE:? History and physical of today was reviewed.? Risks and benefits of the procedure were explained.? The patient understood and agreed to proceed.? Informed consent was obtained.? IV inserted per routine protocol.? The patient was taken to the operating room and placed in the prone position with a pillow positioned underneath the abdomen.? The lower back area was prepped and draped in a sterile fashion using iodine x3.? Under fluoroscopy guidance on AP view, the L4 through S1 vertebral bodies were visualized.? The skin and subcutaneous tissue was anesthetized with approximately 5 mL of 1% lidocaine using a 25-gauge regular needle.? Under direct visualization with fluoroscopy, at approximately 25-degree angle, starting on the left L4, ending on the right L4, passing through the L5 and S1 bilaterally, using a 22-gauge 3-1/2-inch spinal needle, the needle was advanced via the skin.? The tip of the needle was maneuvered and directed towards the superior medial gutter of the transverse process at the vicinity of the medial branch.? Once tip of the needle was in contact with the bone, the needle was pulled approximately 2 mm off the bone.? After negative aspiration for blood or CSF and confirmation on AP, oblique as well as lateral view, a total of 12 mL of preservative-free 0.25% Marcaine with 80 mg of Depo-Medrol was injected in divided doses between those six levels.? The needles were then removed intact.? The patient experienced no sign or symptoms of intrathecal or intravascular injection.? The patient experienced no paresthesia.? The procedure was completed without any apparent difficulty or any complications.? The patient appeared to tolerate it well. ASSESSMENT AND PLAN:? This is a 72-year-old female with lumbosacral spondylosis, lumbosacral degenerative disc disease, lumbar facet arthropathy status post bilateral lumbar medial branch block at L4-S1, patient will continue her current medications, patient will follow approximately 1 to 2 weeks for reevaluation.
[2022-08-24 10:19] VITALS: BP 108/66; BP 123/63; PULSE 56; RESP 16; TEMP 36.5; O2SAT 96
[2022-08-24 10:25] VITALS: BP 122/65; BP 123/63; PULSE 53; RESP 16; O2SAT 97
[2022-08-24 10:30] VITALS: BP 123/63; BP 134/119; PULSE 53; RESP 16; O2SAT 96
[2022-08-24 10:40] VITALS: BP 110/68; BP 123/63; PULSE 52; RESP 16; TEMP 37.1; O2SAT 98
[2022-08-24 11:01] VITALS: BP 123/63
== END 2022-08-24 11:30 | disposition home or self-care (01) ==
LOC: SDC 08:09 → AC 08:10
PROVIDERS: PCP Internal Medicine; Referring Provider Anesthesiology Pain Medicine; Visit Provider Anesthesiology Pain Medicine
PROC: 3E0S3BZ Introduction of Anesthetic Agent into Epidural Space, Percutaneous Approach (ICD-10-PCS; CPT 62322; principal; 2022-08-24 09:45)
DX: M47.816 Spondylosis without myelopathy or radiculopathy, lumbar region (principal); G20 Parkinson's disease; M47.817 Spondylosis without myelopathy or radiculopathy, lumbosacral region; M51.37 Other intervertebral disc degeneration, lumbosacral region; I65.23 Occlusion and stenosis of bilateral carotid arteries; K21.9 Gastro-esophageal reflux disease without esophagitis; G47.33 Obstructive sleep apnea (adult) (pediatric); E78.00 Pure hypercholesterolemia, unspecified; M54.9 Dorsalgia, unspecified; G25.81 Restless legs syndrome; Z98.1 Arthrodesis status; M19.90 Unspecified osteoarthritis, unspecified site; M79.7 Fibromyalgia
CPT/HCPCS: 64493; 64494; 64483; 72110; J7120

== ENCOUNTER → 2022-09-01 | Outpatient (CLI) | payer MEDICARE, SELFPAY ==
[2022-09-01 14:38] LABS: Erythrocyte Sedimentation Rate 8 mm/hr (0-30)
[2022-09-01 14:41] LABS: Absolute Lymphocyte Count 1.74 X10^3/uL (0.83-4.51); Basophil# 0.03 X10^3/uL; Basophil% 0.4 % (0-1); Eosinophil# 0.19 X10^3/uL; Eosinophils% 2.5 % (0-5); Hematocrit 41.3 % (37-47); Hemoglobin 13.4 g/dL (12.0-15.0); Lymphocyte # 1.74 X10^3/ul (0.83-4.51); Lymphocyte % 22.7 % (19-41); Mean Corp Hgb Conc 32.4 g/dL (32-36); Mean Corpuscular Hgb 30.7 pg (27.0-32.0); Mean Corpuscular Volume 94.7 fL (81-99); Mean Platelet Vol. 9.9 fl (6.2-12.0); Monocyte# 0.72 X10^3/uL; Monocyte% 9.4 % (0-10); NRBC Flagged by Analyzer 0 % (0-5); Neutrophil # 4.98 X10^3/uL (2.7-7.7); Neutrophil % 64.7 % (47-70); Platelet Count 273 K/mm3 (150-450); RBC Distribution Width SD 45.6 fl (35.1-43.9); Red Blood Count 4.36 M/mm3 (4.2-5.4); White Blood Count 7.7 K/mm3 (4.4-11.0)
[2022-09-01 15:41] LABS: CRP < 2.90 mg/L (0.0-3.0)
[2022-09-04 10:25] LABS: Angiotensin Convert Enzyme 36 U/L (14-82)
== END | disposition home or self-care (01) ==
LOC: LAB 14:05
PROVIDERS: PCP Internal Medicine; Visit Provider Internal Medicine Pulmonary Disease
DX: R51.9 Headache, unspecified (principal); D86.9 Sarcoidosis, unspecified
CPT/HCPCS: 36415; 82164; 85025; 85652; 86140

== ENCOUNTER → 2022-09-23 | Outpatient (CLI) | payer MEDICARE, SELFPAY ==
--- NOTE | 2022-09-23 10:00 | ECHOD_ITS ---
Reason For Study: Dyspnea Procedure This was a 2D Doppler, Color Flow transthoracic echocardiogram. The study was technically difficult. Exam performed in department. Left Ventricle Normal LV size. Left ventricular systolic function is normal. The estimated ejection fraction is 65 %. Diastolic function is indeterminate. No regional wall motion abnormalities noted. Right Ventricle Normal RV size. Normal systolic function. Atria Normal left atrium. Normal right atrium. No doppler evidence for ASD. Mitral Valve There is no mitral annular calcification. Mild focal mitral valve calcification of the posterior leaflet. Trivial mitral valve insufficiency. Tricuspid Valve Normal tricuspid valve. Mild tricuspid valve insufficiency. Right ventricular systolic pressure estimated to be 24 mmHg. Aortic Valve Trisinus/trileaflet aortic valve. Normal aortic valve. Trivial aortic valve insufficiency. Pulmonic Valve The pulmonic valve is not well visualized. Great Vessels Normal sized aortic root. Pericardium/Pleural No pericardial effusion. MMode/2D Measurements & Calculations LVIDd: 4.7 cm IVSd: 1.2 cm Ao root diam: 3.4 cm LVIDs: 2.9 cm LVPWd: 1.2 cm RVDd: 3.3 cm FS: 38.2 % LAV(MOD-bp): 45.8 ml LVAd ap4: 23.3 cm2 SV(MOD-sp4): 41.3 ml LAV(MOD-bp) Indexed: 22.7 ml/m2 LVLd ap4: 7.4 cm LAV(MOD-sp2): 33.8 ml EDV(MOD-sp4): 61.2 ml LAV(MOD-sp4): 53.0 ml EDV(sp4-el): 62.0 ml LVAs ap4: 12.8 cm2 LVLs ap4: 6.7 cm ESV(MOD-sp4): 20.0 ml ESV(sp4-el): 20.7 ml EF(MOD-sp4): 67.4 % EF(sp4-el): 66.7 % SV(sp4-el): 41.3 ml LA A4 area: 19.1 cm2 LA dimension(2D): 4.0 cm RA A4 area: 9.2 cm2 Doppler Measurements & Calculations MV E max stephon: 69.3 cm/sec Lat Peak E' Stephon: 6.3 cm/sec Med Peak E' Stephon: 4.5 cm/sec MV A max stephon: 85.1 cm/sec E/E' lat: 10.9 E/E' med: 15.4 MV E/A: 0.81 Ao V2 max: 161.5 cm/sec LV V1 max: 107.2 cm/sec PA V2 max: 95.6 cm/sec Ao max P.4 mmHg LV V1 max P.6 mmHg Ao V2 mean: 114.4 cm/sec Ao mean P.7 mmHg Ao V2 VTI: 35.5 cm TR max stephon: 229.3 cm/sec TR max P.0 mmHg ECHO/Echo Complete Interpretation Summary The study was technically difficult. Left ventricular systolic function is normal. The estimated ejection fraction is 65 %. Mild focal mitral valve calcification of the posterior leaflet. Trivial mitral valve insufficiency. Mild tricuspid valve insufficiency. Trivial aortic valve insufficiency. Right ventricular systolic pressure estimated to be 24 mmHg. Diastolic function is indeterminate. Ordering Physician: Isidoro Armendariz V Referring Physician: Mercy Bryant Performed By: Oksana Schumacher, RDCS, RVT
== END | disposition home or self-care (01) ==
LOC: CVS 09:59
PROVIDERS: PCP Internal Medicine; Visit Provider Internal Medicine Pulmonary Disease
DX: R06.00 Dyspnea, unspecified (principal)
CPT/HCPCS: 93306

== ENCOUNTER → 2022-10-02 | Outpatient (CLI) | payer MEDICARE, SELFPAY ==
[2022-10-02 11:07] VITALS: BP 111/67; PULSE 59; RESP 16; TEMP 35.8; O2SAT 100; BMI 34.9
[2022-10-02] MEDS: Zoledronic Acid 5 MG 100 ML 300 MG IV (11:26)
[2022-10-02] MEDS: 0.9% NaCl Peripheral Flush Adult/Peds IV (11:27)
[2022-10-02 11:47] VITALS: BP 118/65; PULSE 62
== END | disposition home or self-care (01) ==
LOC: MEDOUTP 11:02
PROVIDERS: PCP Internal Medicine; Referring Provider Internal Medicine; Visit Provider Internal Medicine
DX: M81.0 Age-related osteoporosis without current pathological fracture (principal)
CPT/HCPCS: 96365; A4216; J3489

== ENCOUNTER → 2022-10-08 | Outpatient (CLI) | payer MEDICARE, SELFPAY ==
--- NOTE | 2022-10-08 11:18 | VDLE_ITS ---
Reason For Study: LEG SWELLING RIGHT LEFT GSV is normal. GSV is normal. CFV is compressible, spontaneous, phasic, CFV is compressible, spontaneous, phasic, competent and demonstrates normal competent, and demonstrates normal augmentation. augmentation. FV is compressible, spontaneous, phasic, FV is compressible, spontaneous, phasic, competent and demonstrates normal competent and demonstrates normal augmentation. augmentation. POP V is compressible, spontaneous, phasic, POP V is compressible, spontaneous, phasic, competent and demonstrates normal competent and demonstrates normal augmentation. augmentation. T/P Trunk is compressible. T/P Trunk is compressible. PTV is compressible. PTV is compressible. RT PerV is compressible. LT PerV is compressible. Procedure This is a venous duplex using B-mode, color flow and spectral Doppler. Exam performed in department. The exam was diagnostic. A preliminary report was called and/or faxed to Dr. Campbell. VL/Venous Duplex US - Bigg Extrem Interpretation Summary Deep veins of the bilateral lower extremities are patent and compressible segme ntally. There is no evidence of bilateral lower extremity deep vein thrombosis. The bilateral great saphenous veins appear patent and compressible segmentally. Ordering Physician: Vilma Campbell Referring Physician: Vilma Campbell Performed By: Jonah Sarabia, RVT
== END | disposition home or self-care (01) ==
LOC: CVS 10:43
PROVIDERS: PCP Internal Medicine; Referring Provider Internal Medicine; Visit Provider Internal Medicine
DX: M79.89 Other specified soft tissue disorders (principal)
CPT/HCPCS: 93970

== ENCOUNTER → 2022-10-23 | Outpatient (CLI) | payer MEDICARE, SELFPAY ==
--- NOTE | 2022-10-23 10:42 | BI_ITS ---
MAMMOGRAPHY - BILATERAL SCREENING REASON FOR EXAM: Female, 72 years old. Routine annual screening examination. PERTINENT HISTORY: Remote left excisional breast biopsy. TECHNIQUE: Digital bilateral breast oliver (3D mammographic acquisition) in the CC and MLO projections. 2-D mediolateral oblique (MLO) and craniocaudad (CC) views of both breasts were obtained. CAD: Full Field Digital Mammography with Computer Added Detection was performed. COMPARISON: Comparison is made with prior study dated 10/15/2021 and 10/14/2020. FINDINGS: Breast Composition: The breasts are heterogeneously dense, which may obscure small masses. There are no dominant masses or suspicious calcifications. No other significant abnormalities are identified. There has been no significant change since the prior study. BI/SCRN MAMM (CAD)W/OLIVER BILAT IMPRESSION: Stable bilateral screening mammogram. Yearly follow-up mammogram recommended. (A) ASSESSMENT CATEGORY: BIRADS Category 1: Negative. A letter regarding these results will be sent to the patient by the facility within 30 days. Approximately 10% of breast cancers are not detected by mammography. A normal mammogram should not delay biopsy of a clinically suspicious abnormality. [id number] Electronically Signed: Jose Luis Lima MD at 12:44 EST ,
== END | disposition home or self-care (01) ==
LOC: OPBI 10:41
PROVIDERS: PCP Internal Medicine; Referring Provider Internal Medicine; Visit Provider Internal Medicine
DX: Z12.31 Encounter for screening mammogram for malignant neoplasm of breast (principal)
CPT/HCPCS: 77063; 77067

== ENCOUNTER 2022-12-07 09:08 | Day surgery (SDC) | payer MEDICARE, SELFPAY ==
[2022-12-07] VITALS (7 sets, daily range): BP systolic 106–120; BP diastolic 58–80; PULSE 49–54; RESP 16; TEMP 36.3–36.7; O2SAT 93–98; BMI 38.6
--- NOTE | 2022-12-07 09:50 | RAD_ITS ---
PROCEDURE: Bilateral L4-S1 medial branch nerve block. DATE OF EXAMINATION: December 07, 2022. INDICATION: Female, 72 years old. Chronic low back pain. FLUOROSCOPY TIME (if supplied): (18 seconds) minutes/seconds. 7 images were obtained. RADIATION DOSAGE (If Supplied By Facility): ( 5.58 ) mGycm Intraoperative imaging provided for bilateral L4 S1 medial branch nerve block. RAD/L/S Spine Min 4 Views IMPRESSION: Intraoperative imaging provided for bilateral L4 and S1 medial branch nerve block. Electronically Signed: Jose Luis Lima MD at 13:21 EDT ,
[2022-12-07] MEDS: Lactated Ringers 1,000 ML 15 ML IV (09:52)
[2022-12-07] MEDS: Bupivacaine 0.25% 30 ML Vial (10:33)
[2022-12-07] MEDS: Lidocaine 1% (5 ml sdv) 5 ML Vial (10:33)
[2022-12-07] MEDS: MethylPREDNISolone Acetate 80 MG/ML Vial (10:33)
--- NOTE | 2022-12-07 10:37 | OP.PCM_ITS ---
Report of Operation Date of Procedure: 12/07/22 Pre-Operative Diagnosis: Lumbosacral spondylosis, lumbosacral degenerative disc disease, lumbar facet arthropathy Post-Operative Diagnosis: Lumbosacral spondylosis, lumbosacral degenerative disc disease, lumbar facet arthropathy Description of Surgical Findings:: PROCEDURE PERFORMED:? Bilateral lumbar branch block at L4, L5, and S1. ANESTHESIA:? MAC. BLOOD LOSS:? Minimal. COMPLICATIONS:? None. DESCRIPTION OF PROCEDURE:? History and physical of today was reviewed.? Risks and benefits of the procedure were explained.? The patient understood and agreed to proceed.? Informed consent was obtained.? IV inserted per routine protocol.? The patient was taken to the operating room and placed in the prone position with a pillow positioned underneath the abdomen.? The lower back area was prepped and draped in a sterile fashion using iodine x3.? Under fluoroscopy guidance on AP view, the L4 through S1 vertebral bodies were visualized.? The skin and subcutaneous tissue was anesthetized with approximately 5 mL of 1% lido lalo using a 25-gauge regular needle.? Under direct visualization with fluoroscopy, at approximately 25-degree angle, starting on the left L4, ending on the right L4, passing through the L5 and S1 bilaterally, using a 22-gauge 3-1/2-inch spinal needle, the needle was advanced via the skin.? The tip of the needle was maneuvered and directed towards the superior medial gutter of the transverse process at the vicinity of the medial branch.? Once tip of the needle was in contact with the bone, the needle was pulled approximately 2 mm off the bone.? After negative aspiration for blood or CSF and confirmation on AP, oblique as well as lateral view, a total of 12 mL of preservative-free 0.25% Marcaine was injected in divided doses between those six levels.? The needles were then removed intact.? The patient experienced no sign or symptoms of intrathecal or intravascular injection.? The patient experienced no paresthesia.? The procedure was completed without any apparent difficulty or any complications.? The patient appeared to tolerate it well. ASSESSMENT AND PLAN:? This is a 72-year-old female with lumbosacral spondylosis, lumbosacral degenerat emre disc disease, lumbar facet arthropathy status post bilateral lumbar medial branch block at L4-S1, patient will continue her current medications, patient will follow approximately 1 to 2 weeks for reevaluation.
== END 2022-12-07 11:48 | disposition home or self-care (01) ==
LOC: SDC 09:09 → AC 09:13
PROVIDERS: PCP Internal Medicine; Referring Provider Anesthesiology Pain Medicine; Visit Provider Anesthesiology Pain Medicine
PROC: 3E0S3BZ Introduction of Anesthetic Agent into Epidural Space, Percutaneous Approach (ICD-10-PCS; CPT 62322; principal; 2022-12-07 10:45)
DX: M47.817 Spondylosis without myelopathy or radiculopathy, lumbosacral region (principal); G20 Parkinson's disease; D86.0 Sarcoidosis of lung; M51.37 Other intervertebral disc degeneration, lumbosacral region; I10 Essential (primary) hypertension; J45.909 Unspecified asthma, uncomplicated; K21.9 Gastro-esophageal reflux disease without esophagitis; Z79.82 Long term (current) use of aspirin; Z79.899 Other long term (current) drug therapy
CPT/HCPCS: 64493; 64494; 64483; 72110; J7120

== ENCOUNTER 2023-02-22 08:58 | Day surgery (SDC) | payer MEDICARE, SELFPAY ==
[2023-02-22 09:30] VITALS: BP 127/58; PULSE 58; RESP 16; TEMP 36.6; O2SAT 98; BMI 35.2
[2023-02-22] MEDS: Lactated Ringers 1,000 ML 15 ML IV (09:42)
--- NOTE | 2023-02-22 09:48 | RAD_ITS ---
PROCEDURE: Left L4-S1 radiofrequency ablation. DATE OF EXAMINATION: February 22, 2023. INDICATION: Female, 72 years old. Chronic low back pain. FLUOROSCOPY TIME (if supplied): (32.7 seconds) minutes/seconds. 7 images. 9.16 mGy RAD/Lumbar Spine 2 or 3 Views IMPRESSION: Intraoperative imaging provided for left L4-S1 radiofrequency ablation. Electronically Signed: Jose Luis Lima MD at 14:45 EDT ,
[2023-02-22] MEDS: MethylPREDNISolone Acetate 40 MG/ML Vial IM (10:01)
[2023-02-22] MEDS: Lidocaine 1% (30 ml sdv) 30 ML Vial (10:01)
[2023-02-22 10:12] VITALS: BP 127/58; BP 134/71; PULSE 54; RESP 14; TEMP 36.3; O2SAT 100
--- NOTE | 2023-02-22 10:14 | PCM.OPRPT ---
Report of Operation Date of Procedure: 02/22/23 Pre-Operative Diagnosis: Lumbosacral spondylosis, lumbosacral degenerative disc disease, lumbar facet arthropathy Post-Operative Diagnosis: Lumbosacral spondylosis, lumbosacral degenerative disc disease, lumbar facet arthropathy Surgery/Procedure Performed:: Left-sided lumbar radiofrequency ablation of the medial branch L4, L5, S1 Type of Anesthesia: MAC Estimated Blood Loss (mL): Minimal Description of Procedure: History and physical today was reviewed. Risks and benefits of procedure explained. The patient understood, agreed to the procedure and informed consent was obtained. IV inserted per routine protocol. The patient was taken to the operating room, placed in the prone position with a pillow positioned underneath the abdomen. The left side of the lower back was prepped and draped in a sterile fashion using iodine x 3. Under fluoroscopy guidance, on an oblique view, the L3 through S1 vertebral bodies were visualized. The skin and subcutaneous tissue was anesthetized with approximately 10 mL of 1% lidocaine using a 25-gauge regular needle. Under direct visualization with fluoroscopy at approximately 25-degree angle, starting on the left L3, ending on the left S1 passing through the L4-L5 using a 20-gauge 15 cm with a 10 mm curved active tip radiofrequency ablation needle the needle passed through the skin. The tip of the needle was maneuvered and directed towards the superior and medial gutter of the transverse process at the vicinity of the medial branch. Once the tip of the needle was in contact with the bone, the needle pulled approximately 2 mm up the bone. The stylet of each needle was then removed. After negative aspiration of blood with CSF and confirmation of AP as well as oblique view, radiofrequency ablation probe was then inserted at each level. Impedance was then recorded at L3 to be 237, at L4 268, at L5 288, at S1 317 ohm. Motor-evoked potential was then initiated to 1.5 volt without any motor response at each corresponding level. The probe was then removed intact and a total of 6 mL preservative-free 1% lidocaine was injected in divided doses between those 4 levels after negative aspiration of blood with CSF. The radiofrequency ablation probe was then reinserted after confirmation of AP, oblique as well as lateral view. Radiofrequency ablation was then initiated to 80 degrees Celsius for 90 seconds at each level. Once concluded, the probe was then removed intact and a total of 6 mL of preservative-free 0.25% Marcaine with 40 mg Depo-Medrol was injected in divided doses between those 4 levels. The needles were then removed intact. The patient experienced no signs or symptoms of intrathecal, intravascular injection. The patient experienced no paraesthesia. The procedure was completed without any apparent difficulty, any complication. The patient appeared to tolerate well. Sensory as well as motor exam was unchanged from prior to procedure. ASSESSMENT AND PLAN: This is a 72-year-old female with lumbosacral spondylosis, lumbosacral degenerative disc disease, lumbar facet arthropathy, status post left-sided lumbar radiofrequency ablation of the medial branch L4 through S1. The patient will continue her current medications. The patient will follow up in approximately 2 weeks for reevaluation. Complications None
[2023-02-22 10:15] VITALS: BP 127/58; BP 137/80; PULSE 55; RESP 16; O2SAT 98
[2023-02-22 10:20] VITALS: BP 127/58; BP 139/77; PULSE 55; RESP 16; O2SAT 95
[2023-02-22 10:25] VITALS: BP 127/58; BP 132/82; PULSE 55; RESP 16; TEMP 36.8; O2SAT 98
[2023-02-22 10:38] VITALS: BP 127/58
== END 2023-02-22 10:55 | disposition home or self-care (01) ==
LOC: SDC 09:02 → AC 09:03
PROVIDERS: PCP Internal Medicine; Referring Provider Anesthesiology Pain Medicine; Visit Provider Anesthesiology Pain Medicine
PROC: (CPT 64635; principal; 2023-02-22 10:25)
DX: M47.817 Spondylosis without myelopathy or radiculopathy, lumbosacral region (principal); G20 Parkinson's disease; M51.37 Other intervertebral disc degeneration, lumbosacral region; M19.90 Unspecified osteoarthritis, unspecified site; Z79.82 Long term (current) use of aspirin; Z79.899 Other long term (current) drug therapy; Z79.52 Long term (current) use of systemic steroids
CPT/HCPCS: 64635; 64636; 01992; 72100; 76000; J7120

== ENCOUNTER 2023-04-05 08:26 | Day surgery (SDC) | payer MEDICARE, SELFPAY ==
[2023-04-05] MEDS: Lactated Ringers 1,000 ML 15 ML IV (08:51)
[2023-04-05 08:52] VITALS: BP 106/75; PULSE 93; RESP 18; TEMP 36.5; O2SAT 96; BMI 35.2
--- NOTE | 2023-04-05 09:36 | RAD_ITS ---
PROCEDURE: Lumbar radiofrequency ablations. DATE OF EXAMINATION: April 05, 2023 INDICATION: Female, 73 years old. Chronic back pain. FLUOROSCOPY TIME (if supplied): 38 seconds. 9 images are submitted RAD/Lumbar Spine 2 or 3 Views IMPRESSION: Intraoperative images are provided for radiofrequency ablations on the right at L2-3, L3-4, L4-5, and L5-S1. Electronically Signed: Alf Alvarado MD at 12:42 EDT Reading Location ID and State: [id number] / Unknown , Service support ,
--- NOTE | 2023-04-05 09:37 | PCM.OPRPT ---
Report of Operation Date of Procedure: 04/05/23 Pre-Operative Diagnosis: Lumbosacral spondylosis, lumbosacral degenerative disc disease, lumbar facet arthropathy Post-Operative Diagnosis: Lumbosacral spondylosis, lumbosacral degenerative disc disease, lumbar facet arthropathy Surgery/Procedure Performed:: Right-sided lumbar radiofrequency ablation of the medial branch L4, L5, S1 Type of Anesthesia: MAC Estimated Blood Loss (mL): Minimal Description of Procedure: History and physical today was reviewed. Risks and benefits of procedure explained. The patient understood, agreed to the procedure and informed consent was obtained. IV inserted per routine protocol. The patient was taken to the operating room, placed in the prone position with a pillow positioned underneath the abdomen. The right side of the lower back was prepped and draped in a sterile fashion using iodine x 3. Under fluoroscopy guidance, on an oblique view, the L3 through S1 vertebral bodies were visualized. The skin and subcutaneous tissue was anesthetized with approximately 10 mL of 1% lidocaine using a 25-gauge regular needle. Under direct visualization with fluoroscopy at approximately 25-degree angle, starting on the right L3, ending on the right S1 passing through the L4-L5 using a 20-gauge 15 cm with a 10 mm curved active tip radiofrequency ablation needle the needle passed through the skin. The tip of the needle was maneuvered and directed towards the superior and medial gutter of the transverse process at the vicinity of the medial branch. Once the tip of the needle was in contact with the bone, the needle pulled approximately 2 mm up the bone. The stylet of each needle was then removed. After negative aspiration of blood with CSF and confirmation of AP as well as oblique view, radiofrequency ablation probe was then inserted at each level. Impedance was then recorded at L3 to be 263, at L4 277, at L5 272, at S1 338 ohm. Motor-evoked potential was then initiated to 1.5 volt without any motor response at each corresponding level. The probe was then removed intact and a total of 6 mL preservative-free 1% lidocaine was injected in divided doses between those 4 levels after negative aspiration of blood with CSF. The radiofrequency ablation probe was then reinserted after confirmation of AP, oblique as well as lateral view. Radiofrequency ablation was then initiated to 80 degrees Celsius for 90 seconds at each level. Once concluded, the probe was then removed intact and a total of 6 mL of preservative-free 0.25% Marcaine with 40 mg Depo-Medrol was injected in divided doses between those 4 levels. The needles were then removed intact. The patient experienced no signs or symptoms of intrathecal, intravascular injection. The patient experienced no paraesthesia. The procedure was completed without any apparent difficulty, any complication. The patient appeared to tolerate well. Sensory as well as motor exam was unchanged from prior to procedure. ASSESSMENT AND PLAN: This is a 73-year-old female with lumbosacral spondylosis, lumbosacral degenerative disc disease, lumbar facet arthropathy, status post right-sided radiofrequency ablation of the medial branch L4 through S1. The patient will continue her current medications. The patient will follow up in approximately 2 weeks for reevaluation. Complications None
[2023-04-05] MEDS: Lidocaine 1% (20 ml mdv) 20 ML Vial (09:47)
[2023-04-05] MEDS: MethylPREDNISolone Acetate 40 MG/ML Vial IM (09:48)
[2023-04-05 10:05] VITALS: BP 104/72; BP 106/75; PULSE 65; RESP 16; TEMP 36.9; O2SAT 95
[2023-04-05 10:10] VITALS: BP 106/75; BP 117/70; PULSE 64; RESP 16; O2SAT 97
[2023-04-05 10:15] VITALS: BP 106/75; BP 126/68; PULSE 58; RESP 16; O2SAT 96
[2023-04-05 10:20] VITALS: BP 106/75; BP 121/59; PULSE 57; RESP 16; TEMP 36.7; O2SAT 97
[2023-04-05 10:44] VITALS: BP 106/75
== END 2023-04-05 10:56 | disposition home or self-care (01) ==
LOC: SDC 08:27 → AC 08:28
PROVIDERS: PCP Internal Medicine; Referring Provider Anesthesiology Pain Medicine; Visit Provider Anesthesiology Pain Medicine
PROC: (CPT 64635; principal; 2023-04-05 09:55)
DX: M47.27 Other spondylosis with radiculopathy, lumbosacral region (principal); G20 Parkinson's disease; D86.0 Sarcoidosis of lung; M51.37 Other intervertebral disc degeneration, lumbosacral region; M48.07 Spinal stenosis, lumbosacral region; Z79.82 Long term (current) use of aspirin; Z79.899 Other long term (current) drug therapy
CPT/HCPCS: 64635; 01992; 72100; 76000; J7120

== ENCOUNTER 2023-06-21 11:30 | Outpatient (RCR) | payer MEDICARE, SELFPAY ==
--- NOTE | 2023-03-10 08:59 | HP.PTEVAL_ITS ---
Patient's Visit Information SHANTANU BOWIE is a 72 year old F referred to Physical Therapy by WEN NICOLE with a diagnosis of PD, B foot drop. Date of Evaluation: 03/10/23 Physical Therapist: JUSTINA Tipton - Visit Plan Frequency: 2x /Week Duration: 2 Months Plan: 2X week for 4 weeks for standing balance and progressing to balance on foam and with gait, gait mechanics (looking with and without her AFO;s), LE strength (including hip, knee, ankle and core strength), with HEP and possible H&W program for pt to continue with her strengthening. Encouraged pt to use her rollator to walk around her neighborhood to increase her overall endurance - Subjective She wants to practice stopping and standing without falling and wants to strengthen her legs. She has leg braces for her foot drop but she gets so tired when she wears them. She does not wear them. She feels that they make her more tired. She fell in the door the other day and she did not lift her foot high enough and she fell. She does not use a cane. She tends to trip over a cane when she uses it. She feels like her legs are weak. She has been having nerve injections in her spine. The Dr had burned her nerves off in her back. Her L leg always feels like it wants to buckle. She is struggling to get out of a chair. She does have a chair lift which she does use but does go up the stairs at times but it is hard and takes and a lot of energy and has one handrail. She has some cramping in her hand, foot and mostly on the L but can be on the R too. She has tremors on the R side. - Objective Pt struggles with some increase in SOB during todays eval. Gait: Walks with flexed trunk, shorter strides, steppage gait, increase veering. LE MMT. R hip flex 18.5 and L 15.1. R knee ext 24.6 and L 18. R knee flex 14.7 and L 13.4. R DF 8.9 and L 6.1. R hip abd 18.3 and L 13.7. Able to do 3/4 normal ROM bridge. Sit to stand Able to get up but needs UE to get out of the chair and has a hard time standing and maintaining balance (fell back into the chair 2/3 times). FGA: 6. Standing heel and toe raises: Pt is not able to heel and toe raise in standing even with UE support. TU:50. Pt struggles with standin g with WBOS due to L knee wanting to buckle several times during treatment. CATSIB: 15 - Balance/Special Test Scores Functional Gait Assessment Score: 6 % Disability: 80.0000 CATSIB Score (Max score 120 seconds): 15 Lower Extremity Functional Score: 33 - Goals Goal 1:: I HEP Goal Time Frame: 6-8 Weeks Goal 2:: Increase balance (score was 6 on FGA at time of the eval) Goal Time Frame: 6-8 Weeks Goal 3:: Increase LE strength (at time of the eval R hip flex 18.5 and L 15.1. R knee ext 24.6 and L 18. R knee flex 14.7 and L 13.4. R DF 8.9 and L 6.1. R hip abd 18.3 and L 13.7. Able to do 3/4 normal ROM bridge) Goal Time Frame: 6-8 Weeks Goal 4:: Be able to sit to stand and maintain standing balance 10/10 times without falling back into the chair Goal Time Frame: 6-8 Weeks Goal 5:: Increase static balance on CATSIB (score was 15 at eval) Goal Time Frame: 6-8 Weeks - Rehabilitation Potential Rehabilitation Potential: Good - Anticipated Interventions Patient/Client Instruction: Educate patient on: Condition, Plan of Care For the Purpose of:: To increase ROM, To improve muscle performance and motor function, To improve ability to perform ADL's, To increase tolerance to activity/condition/position, To improve performance and independence with ADL's, To decrease level of supervision to perform tasks, To improve ability of physical actions for home/community/work/leisure, To improve gait and locomotor functions, To increase flexibility/ROM, To improve endurance, To improve balance, To improve safety with gait Therapeutic Exercise to Include: Strength training, Endurance training, Balance training, Coordination, Body mechanics, Postural training, Gait and locomotor training, Neuromotor development, Active ROM, Dynamic Lumbar Stabilization For the Purpose of:: To improve muscle performance and motor function, To improve ability to perform ADL's, To increase tolerance to activity/condition/position, To improve performance and independence with ADL's, To decrease level of supervision to perform tasks, To improve ability of physical actions for home/community/work/leisure, To improve gait and locomotor functions, To improve health of tissue, To decrease soft tissue restriction, To increase flexibility/ROM, To improve endurance, To improve balance, To improve safety with gait Functional Training to Include: Gait training For the Purpose of:: To improve gait and locomotor functions, To improve safety with gait Thank you for the opportunity to evaluate your patient. For Medicare and Medicare HMO plans, please review the plan of care and approve it. It will need to be FAXED BACK to us at [phone] for Medicare purposes. For Medicare only, by signing this I certify the plan of care. Please let me know if there are questions or concerns regarding this plan of care. Physician Signature: Date:
--- NOTE | 2023-04-19 11:04 | HP.PTREVAL ---
Re-Evaluation Intro: WEN NICOLE, It has been my pleasure to treat SHANTANU BOWIE over the last 8 visits for PD, B foot drop. Please see the progress note below for an update on the physical therapy plan of care! Subjective Subjective: Pt running late. Pt got a high arm rollator as she does not want to walk bent over. She feels that she can walk with better strides. She wants her R arm out of the cast as things are getting difficult. She would like to continue for another 2 weeks until she gets the cast off and can go back to PD class. She was having L HS pain and her leg felt like it was going to buckle this morning but it is better now. Objective Objective/Function: Pt walking with high arm rollator with much better gait flow. We did adjust the arm height so that both arms were the same height. R hip flex 19.1and L 18.3 R knee ext 24.6 and L 23.3 R knee flex 16.2 and L 15.7 R DF 9.7 and L 6.1 R hip abd 18.3 and L 13.7..NT Able to do 3/4 normal ROM bridge..NT Sit to stand: Still struggles to sit to stand without foam pad and UE's FGA: 7 Plan Plan Plan: 2X week for additional 2 weeks for standing balance and progressing to balance on foam and with gait, gait mechanics (looking with and without her AFO;s), LE strength (including hip, knee, ankle and core strength), with HEP and possible H&W program for pt to continue with her strengthening Encouraged pt to use her rollator to walk around her neighborhood to increase her overall endurance Balance/Gait/Functional tests Balance/Special Test Scores Functional Gait Assessment Score: 7 % Disability: 76.6700 CATSIB Score (Max score 120 seconds): 15 Lower Extremity Functional Score: 35 Goals Goals Goal 1:: I HEP Goal Time Frame: 6-8 Weeks Goal Progress: Progressing Goal 2:: Increase balance (score was 6 on FGA at time of the eval) Goal Time Frame: 6-8 Weeks Goal Progress: Goal Met Goal 3:: Increase LE strength (at time of the eval R hip flex 18.5 and L 15.1 R knee ext 24.6 and L 18 R knee flex 14.7 and L 13.4 R DF 8.9 and L 6.1 R hip abd 18.3 and L 13.7 Able to do 3/4 normal ROM bridge) Goal Time Frame: 6-8 Weeks Goal Progress: Progressing Goal 4:: Be able to sit to stand and maintain standing balance 10/10 times without falling back into the chair Goal Time Frame: 6-8 Weeks Goal 5:: Increase static balance on CATSIB (score was 15 at eval) Goal Time Frame: 6-8 Weeks Anticipated Interventions Anticipated Interventions Patient/Client Instruction: Educate patient on: Condition and Plan of Care For the Purpose of:: To increase ROM, To improve muscle performance and motor function, To improve ability to perform ADL's, To increase tolerance to activity/condition/position, To improve performance and independence with ADL's, To decrease level of supervision to perform tasks, To improve ability of physical actions for home/community/work/leisure, To improve gait and locomotor functions, To increase flexibility/ROM, To improve endurance, To improve balance and To improve safety with gait Therapeutic Exercise to Include: Strength training, Endurance training, Balance training, Coordination, Body mechanics, Postural training, Gait and locomotor training, Neuromotor development, Active ROM and Dynamic Lumbar Stabilization For the Purpose of:: To improve muscle performance and motor function, To improve ability to perform ADL's, To increase tolerance to activity/condition/position, To improve performance and independence with ADL's, To decrease level of supervision to perform tasks, To improve ability of physical actions for home/community/work/leisure, To improve gait and locomotor functions, To improve health of tissue, To decrease soft tissue restriction, To increase flexibility/ROM, To improve endurance, To improve balance and To improve safety with gait Functional Training to Include: Gait training For the Purpose of:: To improve gait and locomotor functions and To improve safety with gait Re-Evaluation Ending Re-evaluation ending: Please do not hesitate to contact me at [phone] by phone or if you have questions or concerns regarding this new plan of care! Sincerely, Betty Garcia MPT
--- NOTE | 2023-05-14 09:08 | HP.OTEVAL ---
Patient's Visit Information Visit Information Visit Information: SHANTANU BOWIE is a 73 year old F, referred to Occupational Therapy by WEN NICOLE, with a diagnosis of Closed distal radius fracture. Date of Evaluation: 05/13/23 Occupational Therapist: Елена Matthews, LILAR/[place], CHT Subjective Subjective: This 73 year old female arrives with a closed distal radius fracture sustained on March 29 from falling over the garden hose. Cast off on WednesdayMay 10. Pt is now 6 weeks and 3 days post injury. 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 Pt is right handed. Pt reports she has Parkinson's tremors when she is nervous or excited. Pt reports she has had neuropathy 18 years, only in legs and feet. Pt reports some numbness in right hand yesterday. Pt reports heat is helping pain and ice stings. Pt reports she takes 2 Tylenol at night for sleep. pt would like to return to her PLOF with ADL and IADLs. ADLs Comments: Carrying bags or items and turning/driving hard to butter toast Pain R wrist pain: Current Pain Intensity: 3 Pain Intensity Range: 3 and 8 Objective Objective/Observation: Pt has some tremors when perform task with 9 HPT Compensates with R arm when performing tasks - poor body mechanics ROM Forearm: R Sup 65 Pron 60 left sup 75 pron 85 Wrist: R 25/10 L 50/66 ROM Comments: Pt demonstrates decreased ROM in R wrist and supination compared to left side. Strength Director Of Marketing And Promotions: R 2# L 44# Lateral Pinch: R 7# L10# Tripod Pinch: R 4# L 8# Strength Comments: Pt right hand weaker than left hand Edema Wrist: R 18.5 L 16.5 PIP: MF R & L 6.5cm Other: mid forearm 25.5cm Sensation Sensation Comments: Normal sensation 2.83 normal sensation Nine Hole Peg Right: 34.38 sec Left: 28.28 sec Quick DASH-Disab of Arm,Shoulder& Hand Quick DASH Score: 59.0900 Goals Goal:: Pt will have a security developer strength of 35# or more for increased ability to perform ADL/IADL tasks. Goal:: Pt will increased R WE to 45* or greater to perform ADL and IADL tasks by discharge. Pt will increased R WF to 55* or greater to perform ADL/IADL tasks by discharge. Pt will increased R supination to 75* or greater to perform ADL/IADL tasks by discharge. Goal:: Pt will report <2/10 pain when performing supination to increase ability to perform ADL/IADL tasks by discharge. Goal:: Pt to jose ao improved FMC by decreased 9HPT time by 8 seconds in order to improve manipulation of small objects by discharge. Goal:: Pt will demonstrate understanding by stating 3 techniques for joint protection and adaptive equipment to decrease joint stress while performing ADL tasks by d/c. Goal:: Pt to jose ao overall increased indep in ADL/IADL tasks by decreased total DASH score by 20 points by discharge. Rehabilitation General Assessment: Pt seen for OT courtney with a closed distal radius fracture s/p 6 weeks and 3 days. Pt is limited in ROM in her right wrist and forearm, with pain performing supination. Pt is limited in her ability to perform her ADL/IDL tasks as she is right handed. Pt will benefit from skilled OT 1-2x a week for 8 weeks for continued healing and return to PLOF. Therapist instructed pt in AROM exercises, OT POC, and healing process. Pt verbalizes understanding and agreeable to OT POC. Therapy session was directly supervised and doc. approved by Елена Matthews OTR/[place],CHT. Rehabilitation Potential: Excellent Anticipated Interventions Anticipated Interventions: A/AAROM/PROM, Strengthening, Edema Control, Triggerpoint Release, Modalities, Joint Protection/Energy Conservation, Education re assistive Equipment, Education re Diagnosis and Home Program Visit Plan Frequency: 1-2x /Week Duration: 8 weeks General Plan: Follow closed distal radius fracture protocol in Vol 2 pg 290 7 -8weeks - AAROM with emphasis on wrist ROM and forearm pronation/supination hold end range 10-15 sec, self-passive ROM & hand strengthening Week 9 - can start with 1-3# weights can be initiated Will progress as pt tolerates and instructions. TEXT: Thank you for the opportunity to evaluate your patient. For Medicare and Medicare HMO plans, please review the plan of care and approve it. It will need to be FAXED BACK to us at [phone] for Medicare purposes. Please let me know if there are questions or concerns regarding this plan of care. Physician Signature: Date:
--- NOTE | 2023-06-21 12:02 | HP.OTDCSUM ---
Discharge Summary D/C Summary: It has been my pleasure to treat SHANTANU BOWIE under orders from WEN NICOLE, for the diagnosis of Closed distal radius fracture for a total of 9 visit(s). Please see the following information for a summary of their discharge status. Overall Improvement % Improvement: 70 Objective Objective/Function: right wrist 55/50 intial 25/10 right forearm sup 70* right forearm pronation 66* with ulnar side pain (TFCC region ) right regulatory administrator 30# increase from 2# right lateral pinch 12# increase from 7# right tripod pinch 8# increase form 4# pt reports she is IND with all ADls and IADLs- pt reports she is happy with her progress and states she is ready for D/C with HEP. Goals Patient Goals: Regain Strength, Decrease Pain, Use Hand/Wrist/Arm Normally Again and Increase ROM Goal:: Pt will have a regulatory administrator strength of 35# or more for increased ability to perform ADL/IADL tasks. Goal:: Pt will increased R WE to 45* or greater to perform ADL and IADL tasks by discharge. Pt will increased R WF to 55* or greater to perform ADL/IADL tasks by discharge. Pt will increased R supination to 75* or greater to perform ADL/IADL tasks by discharge. Goal:: Pt will report <2/10 pain when performing supination to increase ability to perform ADL/IADL tasks by discharge. ( goal met) Goal:: Pt to demo improved FMC by decreased 9HPT time by 8 seconds in order to improve manipulation of small objects by discharge. Goal Met Goal:: Pt will demonstrate understanding by stating 3 techniques for joint protection and adaptive equipment to decrease joint stress while performing ADL tasks by d/c. ( goal met) Goal:: Pt to demo overall increased indep in ADL/IADL tasks by decreased total DASH score by 20 points by discharge. (goal met) Plan Plan: D/C D/C Information Discharge Comments: pt was seen for 9 OT sessions following a right distal radius fx. pt made gains in OT and met goals. pt will continue with HEP to continue with strengthening. d/c sentence: If there are questions or concerns regarding this patient's occupational therapy, please fell free to call me at [phone]. Thank you for the referral of this patient. Sincerely, Елена Matthews, OTR/L, CHT
--- NOTE | 2023-06-21 12:10 | HP.PTDCSUM ---
Discharge Summary D/C summary: It has been my pleasure to treat SHANTANU BOWIE referred by WEN NICOLE, with the diagnosis of PD, B foot drop for a total of 19 visit(s). Discharge Date: 06/21/23 Please see the following information for a summary of their discharge status. Subjective Subjective: Pt does feel stronger and it does not give out as much but when it does give out, it does give out. She still can not do heel to toe exercises and has gotten more used to her B AFO's Overall Improvement % Improvement: 50 Objective Objective/Function: R hip flex 20.3 and L 18.9 R knee ext 24.6 and L 26.9 R knee flex 14.7 and L 15.8 R DF 12 and L 11.1 R hip abd 22.7 and L 20.3 Bridge full ROM Sit to stand X 10 with blue pad with no arms CATSIB 70 Goals Goal 1:: I HEP Goal Progress: Goal Met Goal 2:: Increase balance (score was 6 on FGA at time of the eval) Goal Progress: Goal Met Goal 3:: Increase LE strength (at time of the eval R hip flex 18.5 and L 15.1 R knee ext 24.6 and L 18 R knee flex 14.7 and L 13.4 R DF 8.9 and L 6.1 R hip abd 18.3 and L 13.7 Able to do 3/4 normal ROM bridge) Goal Progress: Goal Met Goal 4:: Be able to sit to stand and maintain standing balance 10/10 times without falling back into the chair Goal Progress: Progressing Goal 5:: Increase static balance on CATSIB (score was 15 at eval) Goal Progress: Goal Met Goal 6:: a Plan Plan: DC PT to PD class and H&W exercises D/C Information Discharge Comments: DC PT d/c sentence: If there are questions or concerns regarding this patient's physical therapy, please feel free to call me at [phone]. Thank you for the referral of this patient. Sincerely, Betty Garcia, MPT Balance/Gait/Functional tests Balance/Special Test Scores Functional Gait Assessment Score: 7 % Disability: 76.6700 CATSIB Score (Max score 120 seconds): 70 Lower Extremity Functional Score: 41 Improvement % Improvement: 50
== END 2023-06-21 19:00 | disposition home or self-care (01) ==
LOC: OT 11:30
PROVIDERS: PCP Internal Medicine
DX: G20 Parkinson's disease (principal); M21.371 Foot drop, right foot; M21.372 Foot drop, left foot
CPT/HCPCS: 97110; 97140; 97162; 97166; 97530

== ENCOUNTER → 2023-06-30 | Outpatient (CLI) | payer MEDICARE, SELFPAY ==
--- NOTE | 2023-06-30 13:03 | SP.MBSS_ITS ---
Modified Barium Swallow Patient Information Study Date: 06/30/23 Study Time: 13:00 Direct Billable Minutes: 76 Total Minutes procedure & reportin Diagnosis: Dysphagia (R13.10), Parkinson's Disease (G20) Referring Physician: Isidoro Armendariz V Reason for Referral: Objectively assess swallow function, assess risk for aspiration, and determine recommendations for least restrictive diet textures and compensatory strategies to improve safety of swallow. Medical History: The patient is a 73-year-old female who reports swallowing difficulty for years; however, in the past year it has worsened. She has a history of EGD ~1 year ago, which revealed diverticulitis of the esophagus per patient report. She also reports history of hiatal hernia, GERD, and esophageal spasms. She reports that she coughs on liquids and gets food caught in her throat ~2-3X/week. She is also concerned that she aspirates when she regurgitates food during esophageal spasms. History of PNA ~15 years ago. Patient reported that at recent check up with her PCP, the PCP heard rhonchi in her lungs and was concerned the patient had aspirated. Additional PMH: Alcohol use, Anxiety, Arthritis, Asthma, Bilateral carotid artery stenosis, Chronic hoarseness, Dysphagia, Fibromyalgia, GERD, Hx of IBS, Injury of head and neck, TERESO, PD, Vocal cord paralysis, Pulmonary sarcoidosis. Current Diet Ordered: Regular textures / Thin liquids Dentition: WNL Mental Status: WNL Respiratory Status: Oxygenating on Room Air Penetration-Aspiration Scale Penetration-Aspiration Scale: OBJECTIVE ASSESSMENT OF SWALLOW FUNCTION (QUANTITATIVE ? PER TRIAL): PENETRATION / ASPIRATION SCALE (MARIANO): 1 = does not enter airway 2 = enters airway/above vocal folds/ejected 3 = enters airway/above vocal folds/not ejected 4 = enters airway/contacts vocal folds/ejected 5 = enters airway/contacts vocal folds/not ejected 6 = enters airway/below vocal folds/ejected 7 = enters airway/below vocal folds/not ejected despite effort 8 = enters airway/below vocal folds/no effort VIDEOFLOROSCOPIC SCALE SCORE (MARIANO): Grade I = aspiration of material that has penetrated into the laryngeal vestibule, intact cough reflex Grade II = aspiration < 10 % of the bolus, intact cough reflex Grade III = aspiration of < 10 % of the bolus, reduced cough reflex or aspiration of > 10 % of the bolus, intact cough reflex Grade IV = aspiration of > 10 % of the bolus, reduced cough reflex Penetration-Aspiration Scale Score Thin Liquid via teaspoon: Result: 1= does not enter airway Thin Liquid via teaspoon Trial 2: Result: 1= does not enter airway Thin liquids by small single cup sip: Result: 2= enter airway/above vocal folds/ejected Ryder/mildly thick by large single cup sip: Result: 1= does not enter airway Pudding via teaspoon with esophageal screen: Result: 1= does not enter airway Comment: Thin liquid wash provided during screen and effectively cleared retention of pudding ? Cookie: Result: 1= does not enter airway Thin liquids by sequential straw sips with esophageal screen: Result: 2= enter airway/above vocal folds/ejected Oral Phase Labial Seal: No Labial Escape Tongue Control During Bolus Hold: Posterior escape of greater than half of bolus Bolus Preparation/Mastication: Slow prolonged chewing/mashing with complete recollection Bolus Transport/Lingual Motion: Delayed initiation of tongue motion Oral Residue: Residue collection on oral structures Pharyngeal Phase Initiation of Pharyngeal Swallow: Bolus head in pyriforms Soft Palate Elevation: No bolus between soft palate and pharyngeal wall Laryngeal Elevation: Comp. Superior move thyroid cart w/comp. apprx arytenoid cart-epig pet Anterior Hyoid Excursion: Partial anterior movement Epiglottic Movement: Partial inversion Laryngeal Vestibule Closure at Height of Swallow: Complete; no air/contrast in laryngeal vestibule Pharyngeal Stripping Wave: Present - complete Pharyngoesophageal Segment Opening: Complete distension and complete duration; no obstruction of flow Tongue Base Retraction: Narrow column of contrast between tongue base & post. pharyngeal wall Pharyngeal Residue: Collection of residue within or on pharyngeal structures Esophageal Phase Esophageal Clearance: Esophageal retention Diagnosis/Impression Diagnosis: Mild oropharyngeal phase dysphagia (R13.12), Esophageal dysphagia (R13.14) Impression: The oral phase is primarily marked by... -Decreased bolus control with >1/2 of the bolus spilling posteriorly to the pyriforms prior to swallow onset observed with thin liquids especially. -Prolonged but adequate mastication. -Piecemeal deglutition required for large sips, as well as pudding and cookie trials. The pharyngeal phase is primarily marked by... -Mildly decreased tongue base retraction. -Delayed swallow onset with laryngeal penetration of thin liquids by single cup sip and sequential straw sip, which did reliably eject. The esophageal phase is primarily marked by... -Retention of pudding seen in mid and upper esophagus, which effectively cleared with thin liquid wash. Patient stated she doesn't typically drink as she eats, so PLASTICS REPAIRER recommended alternating bites and sips at meals. Recommendations Diet: Regular Textures and Thin Liquids Compensatory Strategies: Small Bites, Small Sips, Slow Rate, Alternate bites/solids and sips/liquids (1-2 bites: 1 sip), Sitting upright and Remain sitting upright for 30 minutes after PO intake Recommend Repeat Modified Barium Swallow: TBD Need for Skilled Speech Therapy Services: Yes Comment: Will recommend the patient for outpatient dysphagia therapy to address deficits in oropharyngeal swallow function, as well as due to PCP's recent concern for aspiration and patient's history of PD and unilateral VF paralysis. Will recommend the patient for oropharyngeal strengthening to improve lingual control, tongue base retraction, and swallow onset (lingual resistance exercises, Cecille, Ze). The patient would benefit from thorough education regarding diet recommendations and recommended compensatory strategies. Recommended Referrals: GI Consult (Consider GI consult if continued regurgitation of food/drink with esophageal spasms due to risk for reflux aspiration.) Education Completed: 1. Described result of evaluation., 2. Pt understands evaluation & agrees with goals and treatment plan. and 7. Pt requires further education on strategies & risks. Status Active ST Patient: Active Contact Information [facility] Speech Therapy:: Mar Sharpe M.A. [facility]-PLASTICS REPAIRER Speech-Language Pathologist [facility] [address] [place] [address] [email or web address]
== END | disposition home or self-care (01) ==
LOC: RAD 12:51
PROVIDERS: PCP Internal Medicine; Referring Provider Internal Medicine Pulmonary Disease; Visit Provider Internal Medicine Pulmonary Disease
DX: R13.10 Dysphagia, unspecified (principal)
CPT/HCPCS: 74230; 92611

== ENCOUNTER → 2023-10-19 | Outpatient (CLI) | payer MEDICARE, SELFPAY ==
--- NOTE | 2023-10-19 18:45 | CT_ITS ---
INDICATION: ABNORMAL LUNG SOUNDS -- HX:PULMONARY SARCOIDOSIS EXAMINATION: CT CHEST WITH CONTRAST - CT Chest W/ Contrast Injection TECHNIQUE: Helically acquired images were obtained of the chest following IV contrast. A radiation dose optimization technique was used for this scan. IV Contrast dosage and agent: 100 cc of Isovue-370 RADIATION DOSAGE (If Supplied By Facility): CTDIvol = ( 16.55 ) mGy, DLP = ( 509.57 ) mGycm COMPARISON: No relevant prior comparison study available FINDINGS: LUNGS, PLEURA AND LARGE AIRWAYS: Small calcified granulomas in the right upper and right lower lobes. No focal infiltrate is seen. No evidence of pleural effusions. Mild pleural-based stranding/scarring in the right lower lobe. No pneumothorax. THYROID: No thyroid lesions. HEART AND PERICARDIUM: Heart size is normal. No pericardial effusion. Coronary calcifications. VESSELS: Thoracic aorta is not dilated. No aortic dissection. No obvious central pulmonary embolism although this study was not performed with the pulmonary embolism protocol. MEDIASTINUM AND PIERO: Calcified mediastinal and right hilar nodes. Tended fluid-filled esophagus extending from the thoracic inlet to the gastroesophageal junction. Surgical clips in the gastroesophageal junction region. Moderate size hiatal hernia UPPER ABDOMEN: Numerous calcified granulomata in the spleen. No acute process. Somewhat distended stomach. BONES: Degenerative changes of the thoracic spine and increased kyphosis. Demineralization of the osseous structures. Anterior fusion of the lower cervical spine. CT/Chest WITH Contrast IMPRESSION: 1. Residuals of old granulomatous disease. 2. No acute pulmonary infiltrate or pleural effusions. 3. Postoperative changes of the gastroesophageal junction with distended fluid filled esophagus extending to the thoracic inlet and moderate size hiatal hernia. Electronically Signed: Chris Goldman MD at 19:22 EST ,
[2023-10-19 19:10] LABS: CREATININE FINGERSTICK 1.2 mg/dL (0.55-1.02)
== END | disposition home or self-care (01) ==
PROVIDERS: PCP Internal Medicine; Referring Provider Internal Medicine; Visit Provider Internal Medicine
DX: R09.89 Other specified symptoms and signs involving the circulatory and respiratory systems (principal); D86.0 Sarcoidosis of lung
CPT/HCPCS: 71260; Q9967

== ENCOUNTER 2023-10-29 08:50 | Emergency (ER) | payer MEDICARE, SELFPAY ==
[2023-10-29 08:50] VITALS: BP 147/75; PULSE 59; RESP 16; TEMP 36.1; O2SAT 97; BMI 36.1
--- NOTE | 2023-10-29 09:17 | RAD_ITS ---
STUDY: X-RAY CHEST REASON FOR EXAM: Female, 73 years old. Chest pain. TECHNIQUE: Single frontal view of the chest. COMPARISON: 05/13/2023 FINDINGS: Slight elevation of the right hemidiaphragm, unchanged. Stable healed granulomatous calcifications. There is no demonstrated pleural abnormality. Stable cardiomegaly. Normal mediastinum and hector. Normal visualized pulmonary arteries. Aortic tortuosity with calcification unchanged. No abnormality of the visualized soft tissue structures of the upper abdomen. RAD/Chest 1 View (Portable) IMPRESSION: Stable cardiomegaly with no acute or active cardiopulmonary disease. Electronically Signed: Kyaw Restrepo MD at 10:21 EST ,
--- NOTE | 2023-10-29 09:19 | ED.VIS.CHEST ---
HPI History of Present Illness Chief Complaint: Chest Pain Informant: patient Onset/Context/Timing Onset: Today Activity at onset: activity on onset and sleep Timing: Continuous Quality: Positive for Pain Location: Left Chest (Initially radiated and to left upper back but not now or since) Current Severity: Moderate Maximum Severity: Moderate Worsened By: Nothing; Not Worsened By Breathing Relieved By: Nothing (Took her omeprazole no other medications) Associated Symptoms: Negative for Nausea, Vomiting, Diaphoresis, Dyspnea, Cough, Fever, Lightheadedness or Palpitations Narrative Narrative: 73-year-old female presents saying she woke up around 7 hours ago at 2 AM with left-sided chest discomfort. She states it feels like her GERD except that it is more to the left of where usually is. For this reason she said she wanted to make sure this was not her heart which is why she came to the ER. She denies any history of stents or other significant cardiac disease. Denies any recent illness. She did not eat a late meal last night. Sitting or standing did not help the discomfort although exertion does not make it worse and it is nonpleuritic. No history of DVT or PE does not take anticoagulants, and no recent leg pain or swelling. [facility] Medical History Alcohol use Anxiety Arthritis Asthma Back pain Bilateral carotid artery stenosis Bladder disease Cardiology follow-up encounter Chronic hoarseness Difficulty swallowing Dysphagia Ectopic atrial beats Fibromyalgia Gastric reflux GERD (gastroesophageal reflux disease) History of echocardiogram History of edema History of IBS History of stress test Injury of head and neck Leg cramps TERESO (obstructive sleep apnea) Parkinson's disease Pulmonary sarcoidosis Pure hypercholesterolemia Restless legs Shortness of breath on exertion Vocal cord paralysis Wears glasses Wears hearing aid Home Medications aspirin 81 mg chewable tablet 81 mg PO DAILY@0800 04/03/15 [History Last Taken 02/19/23] atorvastatin 10 mg tablet 10 mg PO QHS 04/03/15 [History Last Taken Unknown] citalopram 20 mg tablet 20 mg PO DAILY 04/03/15 [History Last Taken 12/07/22] folic acid 1 mg tablet 1 mg PO BIDCM 04/03/15 [History Last Taken 12/07/22] albuterol sulfate 90 mcg/actuation aerosol inhaler 1 - 2 puff inhalation Q6H PRN PRN Asthma 11/04/18 [History Last Taken Unknown] multivitamin with folic acid 400 mcg tablet 1 tab PO DAILY 11/04/18 [History Last Taken Unknown] propranolol 10 mg tablet 10 mg PO BID 12/11/19 [History Last Taken 12/07/22] magnesium oxide 400 mg PO DAILY 06/13/20 [History Last Taken Unknown] famotidine 20 mg tablet (Pepcid) 20 mg PO PRN PRN GERD 02/06/21 [History Last Taken Unknown] sumatriptan succinate 100 mg tablet See Rx Instructions PO .COMPLEX 02/06/21 [History Last Taken Unknown] tizanidine 2 mg tablet 2 mg PO QHS PRN Spasms 02/07/21 [History Last Taken Unknown] carbidopa 25 mg-levodopa 100 mg tablet 1 tab PO TID 10/03/21 [History Last Taken 12/07/22] fluticasone furoate 200 mcg-vilanterol 25 mcg/dose inhalation powder (Breo Ellipta) 1 inh inhalation DAILY 04/24/22 [History Last Taken 04/05/23] omeprazole 20 mg capsule,delayed release 40 mg PO DAILY 07/02/22 [History Last Taken 12/07/22] cholestyramine (with sugar) 4 gram powder for susp in a packet 1 ea PO BID 10/29/23 [History Last Taken Unknown] Allergy/AdvReac Type Severity Reaction Status Date / Time celecoxib [From Celebrex] Allergy Unknown Verified 10/29/23 08:52 meperidine HCl [From Demerol] Allergy Unknown Verified 10/29/23 08:52 metoclopramide HCl Allergy Unknown Verified 10/29/23 08:52 [From Reglan] suture Allergy NEEDS Verified 10/29/23 08:52 FOLLOW-UP Family History Mother CHF (congestive heart failure) Sister CHF (congestive heart failure) Sister CAD (coronary artery disease) Myocardial infarction Presence of permanent cardiac pacemaker Aortic stenosis, severe Surgical History History of fusion of cervical spine History of laminectomy History of left breast biopsy History of left heart catheterization (LHC) (~04/04/15) History of Dorie fundoplication History of repair of hiatal hernia vocal cord surgery Social History Smoking Status: Never smoker alcohol intake: current details: occasional substance use type: does not use caffeine: Yes (occasional) ROS ROS ED Constitutional Constitutional ED: Denies chills or fever(s) Eyes Eyes: Denies change in vision or diplopia ENT ENT ED: Denies rhinorrhea or sore throat Cardiovascular Cardiovascular: Reports chest pain; Denies palpitations Respiratory/Chest Respiratory/Chest: Denies cough or dyspnea Gastrointestinal Gastrointestinal: Denies abdominal pain, diarrhea, nausea or vomiting Genitourinary Genitourinary ED: Denies dysuria or hematuria Musculoskeletal Musculoskeletal: Denies back pain or neck pain Integumentary Denies abscess or rash Neurologic Neurologic: Denies headache(s), paresthesias or weakness Psychiatric Psychiatric: Denies suicidal ideation or suicidal thoughts EXAM Physical Exam Const Vital Signs: 10/29/23 08:50 10/29/23 10:22 10/29/23 10:24 Temperature 97.0 F L Temperature Source Temporal Pulse Rate 59 L 55 L Respiratory Rate 16 16 Blood Pressure 147/75 H 146/78 H Blood Pressure Mean 99 100 Pulse Ox 97 96 95 Oxygen Delivery Method Room Air Room Air 10/29/23 12:00 Temperature Temperature Source Pulse Rate 51 L Respiratory Rate 15 Blood Pressure 147/64 H Blood Pressure Mean 91 Pulse Ox 98 Oxygen Delivery Method Positive well nourished and well developed General Appearance ED: well developed and NAD HEENT Reports moist mucous membranes normocephalic and atraumatic Eyes PERRL and EOMs intact bilaterally Neck full ROM and supple Resp normal respiratory effort and clear to auscultation bilaterally Cardio regular rate, regular rhythm and no murmurs Rate: Negative for tachycardic Peripheral Pulses: pulses 2+ throughout GI non-tender and non-distended Auscultation: normoactive bowel sounds Palpation: soft Back/Spine no CVA tenderness General Back: other FROM Extremity normal to inspection General Extremety ED: Negative for edema, pulses abnormal or tenderness General Extremity: Negative for edema or pulses abnormal Neuro oriented x3, CN's II-XII intact bilaterally and no sensory deficits noted Sensorium / Orientation: awake and alert Motor Exam: strength 5/5 throughout Skin no rashes or lesions noted and no wounds Heart Score History: Slightly/Non-Suspicious ECG: Normal Age: >/= 65 years Risk Factors: No Risk Factors Troponin: </= Normal Limit Score: 2 MDM MDM MDM Narrative Medical decision making narrative: Patient concerned about cardiac etiologies. Her EKG shows a left anterior fascicular block that is unchanged compared to prior no acute injury pattern. No signs of repolarization abnormalities. Her initial heart enzymes were negative and a repeat 2 hours later is also in the single digits, essentially normal. Her other blood counts look good. In the meantime she was given a GI cocktail so she thought maybe this was GERD, she felt a lot better afterwards. She had some mild residual discomfort but did not want anything else for it that I offered. Certainly acid related disorders are in the differential but she is already on omeprazole 40 mg daily, as well as famotidine daily. Is possible this is esophageal spasm. I do not recommend any medication changes right now, I would follow-up closely with her doctor as an outpatient since she has had several episodes of this in the last month or so. Lab Data Attestation: I reviewed the patient's lab results. Labs: Laboratory Results - last 24 hr 10/29/23 10/29/23 09:40 12:07 WBC 4.9 RBC 4.16 L Hgb 12.5 Hct 39.1 MCV 94.0 MCH 30.0 MCHC 32.0 RDW Std Deviation 44.3 H RDW Coeff of [place] 12.8 Plt Count 220 MPV 10.4 Immature Gran % (Auto) 0.400 Neut % (Auto) 53.6 Lymph % (Auto) 28.8 [place] % (Auto) 10.1 H Eos % (Auto) 6.5 H Baso % (Auto) 0.6 Absolute Neuts (auto) 2.6 Absolute Lymphs (auto) 1.42 Nucleated RBC % 0 Sodium 144 Potassium 4.4 Chloride 111 H Carbon Dioxide 29.0 Anion Gap 4 L BUN 17 Creatinine 0.76 Estim Creat Clear Calc 72.74 Est GFR (MDRD) Af Amer 96 Est GFR (MDRD) Non-Af 79 BUN/Creatinine Ratio 22.4 H Glucose 99 Calcium 9.1 Troponin I High Sens 4 5 Radiography Diagnostic Testing: Clinical Impression(s) from Imaging Studies Chest X-Ray 10/29/23 09:17 IMPRESSION: Stable cardiomegaly with no acute or active cardiopulmonary disease. Electronically Signed: Kyaw Restrpeo MD at 10:21 EST Reading Location ID and State: [address] [place] [address] , Service support , 1 view chest x-ray on my interpretation negative for acute pathology/mediastinal widening. Radiology in agreement. Rhythm Strip Rhythm Strip: Sinus Rhythm Rate: 59 Ectopy: None EKG Initial EKG: Attestation: I personally reviewed and interpreted this EKG as follows: Interpretation: Sinus Rhythm, No Acute Injury Pattern and LAFB Prior EKG tracings: available for review Prior: Unchanged Discharge Plan Triage Chief Complaint: Chest Pain ED Provider: Jean Estes Dx/Rx/DC Orders Clinical Impression: Chest pain due to GERD Instructions: ED Chest Pain, Noncardiac Prescriptions: Continued magnesium oxide 400 mg magnesium tablet 400 mg PO DAILY carbidopa-levodopa 25-100 mg tablet 1 tab PO TID atorvastatin 10 MG tablet 10 mg PO QHS citalopram 20 MG tablet 20 mg PO DAILY aspirin 81 MG tablet,chewable 81 mg PO DAILY@0800 folic acid 1 MG tablet 1 mg PO BIDCM albuterol sulfate 1 INHALER inhaler 1 - 2 puff inhalation Q6H PRN PRN (Reason: Asthma) multivitamin with folic acid 1 TABLET tablet 1 tab PO DAILY fluticasone furoate-vilanterol [Breo Ellipta] 200-25 mcg/dose blister with device 1 inh INHALATION DAILY omeprazole 20 mg Capsule,Delayed Release(Dr/Ec) 40 mg PO DAILY cholestyramine (with sugar) 4 gram powder in packet 1 ea PO BID Patient Comments: take 1 packet ( 4 grams ) by mouth twice a day with meals propranolol 10 mg tablet 10 mg PO BID sumatriptan succinate 100 mg tablet See Rx Instructions PO .COMPLEX Rx Instructions: take 1 tab at onset of headache; if no relief, may repeat 1 tab after at least 2 hrs; max = 2 tabs/24 hrs PO famotidine [Pepcid] 20 mg tablet 20 mg PO PRN PRN (Reason: GERD) tizanidine 2 mg tablet 2 mg PO QHS PRN (Reason: Spasms) Primary Care Provider: Mercy Bryant Referrals: Mercy Bryant MD [Primary Care Provider] - As soon as possible Disposition Disposition: Home, Self Care
[2023-10-29 09:49] LABS: Absolute Lymphocyte Count 1.42 X10^3/uL (0.83-4.51); Absolute Neutrophil Count 2.6 X10^3/uL (2.0-7.7); Basophil# 0.03 X10^3/uL; Basophil% 0.6 % (0-1); Eosinophil# 0.32 X10^3/uL; Eosinophils% 6.5 % (0-5); Hematocrit 39.1 % (37-47); Hemoglobin 12.5 g/dL (12.0-15.0); Lymphocyte # 1.42 X10^3/ul (0.83-4.51); Lymphocyte % 28.8 % (19-41); Mean Platelet Vol. 10.4 fl (6.2-12.0); Monocyte% 10.1 % (0-10); NRBC Flagged by Analyzer 0 % (0-5); Neutrophil # 2.64 X10^3/uL (2.7-7.7); Neutrophil % 53.6 % (47-70); Platelet Count 220 K/mm3 (150-450); RBC Distribution Width CV 12.8 % (11.6-14.6); RBC Distribution Width SD 44.3 fl (35.1-43.9); Red Blood Count 4.16 M/mm3 (4.2-5.4); White Blood Count 4.9 K/mm3 (4.4-11.0)
[2023-10-29 10:10] LABS: Anion Gap 4 (5-15); BUN 17 mg/dL (7-18); BUN/Creat Ratio 22.4 RATIO (10-20); Calcium,Total 9.1 mg/dL (8.5-10.1); Chloride 111 mmol/L (98-107); Creatinine, Serum 0.76 mg/dL (0.55-1.02); EST Glomerular Filtration Rate 79 mL/min (>60); Est Glom Filt Rate - Afr Amer 96 mL/min (>60); Estimated Creatinine Clearance 72.74 ml/min; Glucose 99 mg/dL (74-106); Potassium 4.4 mmol/L (3.5-5.1); Sodium Level 144 mmol/L (136-145); Troponin-I HS (w/2H Reflex) 4 pg/mL (3.0-54.0)
[2023-10-29 10:22] VITALS: O2SAT 96
[2023-10-29] MEDS: Mag Hydrox/Al Hydrox/Simeth 30 ML UDC PO (10:22)
[2023-10-29 10:24] VITALS: BP 146/78; PULSE 55; RESP 16; O2SAT 95
[2023-10-29 11:45] LABS: Reflex Troponin-HS? (from REC) Y
[2023-10-29 12:00] VITALS: BP 147/64; PULSE 51; RESP 15; O2SAT 98
[2023-10-29 12:40] LABS: Troponin-I HS 5 pg/mL (3.0-54.0)
[2023-10-29 13:49] VITALS: BP 116/70; PULSE 68; RESP 12; O2SAT 98
== END 2023-10-29 13:50 | disposition home or self-care (01) ==
PROVIDERS: Emergency Provider Emergency Medicine; PCP Internal Medicine; Visit Provider Emergency Medicine
DX: K21.9 Gastro-esophageal reflux disease without esophagitis (principal); G20.A1 Parkinson's disease without dyskinesia, without mention of fluctuations; E78.00 Pure hypercholesterolemia, unspecified; Z79.82 Long term (current) use of aspirin; Z79.899 Other long term (current) drug therapy
CPT/HCPCS: 71045; 80048; 84484; 85025; 93005; 99285; A4216

== ENCOUNTER 2023-11-10 08:50 | Outpatient (CLI) | payer MEDICARE, SELFPAY ==
[2023-11-10 08:59] VITALS: BP 127/69; PULSE 62; RESP 14; TEMP 36.1; O2SAT 96; BMI 35.7
[2023-11-10] MEDS: 0.9% NaCl Peripheral Flush Adult/Peds IV (09:13)
[2023-11-10] MEDS: Zoledronic Acid 5 MG 100 ML 300 MG IV (09:13)
[2023-11-10 09:39] VITALS: BP 108/68; PULSE 57; RESP 16; TEMP 36.9; O2SAT 98
== END 2023-11-10 08:51 | disposition home or self-care (01) ==
LOC: MEDOUTP 08:51
PROVIDERS: PCP Internal Medicine; Referring Provider Internal Medicine; Visit Provider Internal Medicine
DX: M81.0 Age-related osteoporosis without current pathological fracture (principal)
CPT/HCPCS: 96365; A4216; J3489

== ENCOUNTER → 2023-11-10 | Outpatient (CLI) | payer MEDICARE, SELFPAY ==
--- NOTE | 2023-11-10 09:41 | BI_ITS ---
MAMMOGRAPHY - BILATERAL SCREENING REASON FOR EXAM: Female, 73 years old. Routine annual screening examination. PERTINENT HISTORY: Sister with breast cancer. Remote left excisional breast biopsy. TECHNIQUE: Digital bilateral breast oliver (3D mammographic acquisition) in the CC and MLO projections. 2-D mediolateral oblique (MLO) and craniocaudad (CC) views of both breasts were obtained. CAD: Full Field Digital Mammography with Computer Added Detection was performed. COMPARISON: Comparison is made with prior study dated October 23, 2022 and October 15, 2021. FINDINGS: Breast Composition: The breasts are heterogeneously dense, which may obscure small masses. There are no dominant masses or suspicious calcifications. Stable bilateral fat-containing axillary lymph nodes. No other significant abnormalities are identified. There has been no significant change since the prior study. BI/SCRN MAMM (CAD)W/OLIVER BILAT IMPRESSION: Stable bilateral screening mammogram. Yearly follow-up mammogram recommended. (A) ASSESSMENT CATEGORY: BIRADS Category 2: Benign. A letter regarding these results will be sent to the patient by the facility within 30 days. Approximately 10% of breast cancers are not detected by mammography. A normal mammogram should not delay biopsy of a clinically suspicious abnormality. [id number] Electronically Signed: Jose Luis Lima MD at 10:35 EST ,
--- NOTE | 2023-11-10 09:45 | BD_ITS ---
STUDY: DUAL ENERGY X-RAY ABSORPTIOMETRY / DXA REASON FOR EXAM: Female, 73 years old. 733.00OsteoporosisBONE DENSITY REASON FOR EXAM TECHNIQUE: Bone Mineral Density (BMD) measurements of lumbar spine and bilateral hips were obtained. COMPARISON: Comparison is made with prior study dated October 15, 2021. FINDINGS: Lumbar Spine (L1-L4): g/cm2 (0.790) / T-score (-2.0) / Z-score (0.2) Findings are suggestive of osteopenia with a moderate fracture risk. Left Femur Total: g/cm2 (0.897) / T-score (-0.4) / Z-score (1.3) Left Femoral Neck: g/cm2 (0.649) / T-score (-1.8) / Z-score (0.2) Right Femur Total: g/cm2 (0.889) / T-score (-0.4) / Z-score (1.3) Right Femoral Neck: g/cm2 (0.611) / T-score (-2.1) / Z-score (-0.1) The T-Scores on the most recent prior examination were: Lumbar Spine (L1-L4): There has been worsening of bone density since the previous examination. Left Femur Total: which represents a worsening of 4%. Right Femur Total: which represents an improvement of 1.9%. BD/Dexa Bone Density Study IMPRESSION: The patient is considered osteopenic as outlined below according to World Leonel Organization (WHO) criteria with a moderate fracture risk. There has been worsening of bone density since the previous examination. Reference Information: The T-score is the number of standard deviations above or below the standard which is normal for young adults at their peak bone mineral density. The World Health Organization (WHO) interprets the T-scores as follows: Above -1 Normal bone density Between -1 and -2.5 Osteopenia Equal to / or below -2.5 Osteoporosis As a practical clinical guideline, osteopenia may be graded as follows: Mild -1 through -1.5 Moderate -1.6 through -2.0 Severe -2.1 through -2.4 The Z-score is the number of standard deviations above or below age-matched controls. A Z-score of less than -1.5 would be considered abnormal. References: 1. NIH Osteoporosis and Related Bone Diseases www osteo.org 2. International Society for Clinical Densitometry www iscd.org 3. National Osteoporosis Foundation www nof.org Electronically Signed: Jose Luis Lima MD at 13:36 EST ,
== END | disposition home or self-care (01) ==
LOC: OPBD 09:41
PROVIDERS: PCP Internal Medicine; Referring Provider Internal Medicine; Visit Provider Internal Medicine
DX: Z12.31 Encounter for screening mammogram for malignant neoplasm of breast (principal); M81.0 Age-related osteoporosis without current pathological fracture; Z80.3 Family history of malignant neoplasm of breast
CPT/HCPCS: 77063; 77067; 77080

== ENCOUNTER → 2023-12-28 | Outpatient (CLI) | payer MEDICARE, SELFPAY ==
[2023-12-28 12:31] LABS: Potassium 4.9 mmol/L (3.5-5.1)
== END | disposition home or self-care (01) ==
LOC: LABSPEC 12:21
PROVIDERS: PCP Internal Medicine; Referring Provider Internal Medicine; Visit Provider Internal Medicine
DX: E87.5 Hyperkalemia (principal)
CPT/HCPCS: 84132

== ENCOUNTER → 2024-03-14 | Outpatient (CLI) | payer MEDICARE, SELFPAY ==
--- NOTE | 2024-03-14 08:49 | CDU_ITS ---
Reason For Study: carotid stenosis Rt. Velocities/BP Lt. Velocities/BP Prox CCA 79.6/17.3 cm/sec. Prox CCA 81.5/15.4 cm/sec. Mid CCA 74.0/15.4 cm/sec. Mid CCA 84.4/21.1 cm/sec. Dist CCA 60.7/17.3 cm/sec. Dist CCA 68.3/18.2 cm/sec. Prox ICA 72.1/14.5 cm/sec. Prox ICA 54.1/15.4 cm/sec. Mid ICA 64.5/20.1 cm/sec. Mid ICA 68.3/19.2 cm/sec. Dist ICA 83.4/27.7 cm/sec. Dist ICA 65.3/23.3 cm/sec. Rt. ICA/CCA = 1.1. Lt. ICA/CCA = .8. Prox ECA 58.9/6.0 cm/sec. Prox ECA 72.1/13.5 cm/sec. Rt. Vert. 34.3/9.7 cm/sec. Lt. Vert. 59.8/17.3 cm/sec. Right Extracranial There is intimal thickening but no significant atherosclerotic plaque noted in the right common carotid artery. There is heterogeneous, irregular atherosclerotic plaque noted in the right internal carotid artery. There is intimal thickening but no significant atherosclerotic plaque noted in the right external carotid artery. Antegrade flow is noted in the right vertebral artery. Left Extracranial There is intimal thickening but no significant atherosclerotic plaque noted in the left common carotid artery. There is intimal thickening but no significant atherosclerotic plaque noted in the left internal carotid artery. There is intimal thickening but no significant atherosclerotic plaque noted in the left external carotid artery. Antegrade flow is noted in the left vertebral artery. Procedure Carotid Duplex [id number]. This is a Carotid Duplex examination using B-mode, color flow and specral Doppler. The exam was diagnostic. Exam performed in department. VL/Carotid Duplex Ultrasound Interpretation Summary Mild (<50%) stenosis right extracranial internal carotid. No significant athero sclerotic plaque or stenosis noted in the left internal carotid artery. Flow within the vertebral a rteries is antegrade bilaterally. Ordering Physician: Arsenio Khalil Performed By: Jose De La Vega RVT
== END | disposition home or self-care (01) ==
PROVIDERS: PCP Internal Medicine; Referring Provider Internal Medicine Cardiovascular Disease; Visit Provider Internal Medicine Cardiovascular Disease
DX: I65.23 Occlusion and stenosis of bilateral carotid arteries (principal)
CPT/HCPCS: 93880

== ENCOUNTER → 2024-04-17 | Outpatient (CLI) | payer MEDICARE, SELFPAY ==
--- NOTE | 2024-04-17 09:22 | RAD_ITS ---
STUDY: X-RAY - ESOPHAGUS (BARIUM SWALLOW) WITH FLUOROSCOPY REASON FOR EXAM: Female, 74 years old. Dysphagia, unspecified TECHNIQUE: 23 view(s) of the esophagus were obtained following swallowing of barium. FLUOROSCOPY TIME (if supplied): (41 seconds) minutes/seconds. 6.1 mGy. COMPARISON: Comparison is made with prior study May 04, 2022. FINDINGS: There is no demonstrated esophageal foreign body. The patient is status post Dorie fundoplication. There is evidence of a small sliding hernia with evidence of small diverticulum in the distal portion of the esophagus. Mild gastroesophageal reflux. The patient ingested a 12 mm tablet of barium without difficulty. Normal visualized aortic arch and descending thoracic aorta. Normal visualized pulmonary parenchyma. There are diffuse degenerative changes of the visualized thoracic spine. RAD/Esophagus Dual Contrast IMPRESSION: Status post Dorie fundoplication with residual small hiatal hernia and distal esophageal diverticulum. Electronically Signed: Jose Luis Lima MD at 11:29 EDT ,
== END | disposition home or self-care (01) ==
PROVIDERS: PCP Internal Medicine; Referring Provider Internal Medicine Gastroenterology; Visit Provider Internal Medicine Gastroenterology
DX: R13.10 Dysphagia, unspecified (principal)
CPT/HCPCS: 74221

== ENCOUNTER 2024-08-04 08:19 | Day surgery (SDC) | payer MEDICARE, SELFPAY ==
[2024-08-04] MEDS: Lidocaine Jelly 2% 20 ML Syringe (URO-JET) 1 APPLIC (08:35)
[2024-08-04 08:38] VITALS: BP 113/67; PULSE 58; RESP 16; TEMP 36.6; O2SAT 99
== END 2024-08-04 09:12 | disposition home or self-care (01) ==
PROVIDERS: PCP Internal Medicine; Referring Provider Internal Medicine; Visit Provider Internal Medicine Gastroenterology
PROC: F00ZJWZ Instrumental Swallowing and Oral Function Assessment using Swallowing Equipment (ICD-10-PCS; CPT 43235; principal; 2024-08-04 08:25)
DX: R07.89 Other chest pain (principal); K21.9 Gastro-esophageal reflux disease without esophagitis; R13.10 Dysphagia, unspecified
CPT/HCPCS: 91010

== ENCOUNTER 2024-08-14 10:23 | Day surgery (SDC) | payer MEDICARE, SELFPAY ==
[2024-08-14] VITALS (8 sets, daily range): BP systolic 101–125; BP diastolic 63–80; PULSE 57–74; RESP 12–16; TEMP 36.1–36.3; O2SAT 96–100; BMI 35.9
--- NOTE | 2024-08-14 10:31 | HP.PCM_ITS ---
History and Physical Date of Admission: 08/14/24 ANNABEL BOWIE, is a 74 F who presents to the office today for initial consult. Barium Swallow X-Ray 04.17.24 Status post Dorie fundoplication with residual small hiatal hernia and distal esophageal diverticulum. *BGI established 07.10.24 pt reports increased difficulty swallowing with esophageal spasms and is unsure if it is due to her Parkinson's disease. Pt reports that the spasms are worse with stress and has been under an increase in stress lately with family member's health declining. Pt reports that she had a EGD with dilation with Dr Oconnor this summer, but reports that did not help with her swallowing. ROS Const Constitutional: Positive for fatigue, frequent falls and weakness; No fever(s) or weight change ENT ENT: Positive for difficulty swallowing Gastro GI: Positive for bloating, change in bowel habits, heartburn, difficulty swallowing, excessive flatus, nausea/dyspepsia and vomiting; No abdominal pain, belching, change in stool character, coffee ground emesis, constipation, cramping, diarrhea, feeling full early, incontinent of stools, Vomiting blood/hematemesis, Blood in stool, loose stools, Black,tarry stools, pain with swallowing or other Musc Musculoskeletal: Positive for abnormal gait, back pain, muscle cramps, muscle weakness, numbness, stiffness, tingling, Arthritis, restless legs and leg pain at night; No joint pain Skin Skin: No yellowing of the eye or itchy eyes Neuro Neurology: Positive for abnormal gait, weakness, frequent falls, numbness, tingl ing and restless legs Psych Psychiatric: Positive for anxiety and Positive for depression Endo Endocrine: Positive for fatigue; No weight change Aller/Imm Allergy/Immunologic: No itchy eyes Parish/Lymp Hematologic/Lymphatic: No easy bleeding or easy bruising Exam Const General: cooperative and comfortable Nutritional Appearance: average body habitus and well nourished [facility] Head: normal to inspection Ears: hearing grossly normal bilaterally Nose: external nose normal Face and sinus: normal facial exam Mouth: oral mucosae normal Throat: posterior oropharynx normal Eyes General: appearance normal, both eyes and all related structures Neck Neck: normal visual inspection Chest Chest palpation & inspection: normal inspection of the chest and normal palpatio n of entire chest wall Resp Effort & Inspection: normal respiratory effort Auscultation: Bilateral: Clear to Auscultation Cardio Palpation: normal PMI Rate: regular rate Rhythm: regular rhythm GI Inspection: normal to inspection Auscultation: normal bowel sounds Percussion: normal to percussion Palpation: no hepatosplenomegaly Skin General: no rashes or lesions noted Neuro General: patient alert Extrem General: normal to inspection Psych Affect: normal affect Assessment and Plan Assessment and Plan (1) GERD (gastroesophageal reflux disease): Status: Chronic Plan: She has gastroesophageal reflux disease likely due to poor clearance from pre- existing Parkinson's disease. She also has a small hiatal hernia which I think is contributing to her symptoms. She actually does okay on her current regimen of Prevacid in the morning and famotidine at night. We will continue that for now. (2) Family history of polyps in the colon: Status: Acute Plan: Her sister was recently diagnosed with multiple polyps in the colon. In her last colonoscopy was not clear. Therefore we will perform a screening colonoscopy because it has been 13 years since her last colonoscopy. (3) Esophageal motility disorder: Status: Acute Plan: Her symptoms seem to be more of an esophageal motility disorder. Therefore we will get an esophageal manometry to see if she does have an appropriate esophageal motility versus achalasia or hypertensive esophagus associated with her Parkinson's disease. I have examined the patient and the H&P has been reviewed. There are no clinical changes since date of exam.
--- NOTE | 2024-08-14 11:07 | PCM.PRE.AN2 ---
ASA Classification* ASA Classification ASA Classification: 3 Assessment & Plan Anesthesia* Anesthesia Assessment Anesthesia Assessment: Discussed sedation and/or anesthesia options, risks, benefits, and alternatives with patient/parents/legal guardian/POA. Questions invited. The patient/parents/legal guardian/POA seems to understand and agrees to proceed with anesthesia plan. Reviewed the physical assessment, medical history, allergy history and patient home medications list prior to surgery/procedure/anesthetic and documented any changes. Performed airway and anesthesia risk assessments. Anesthesia Type Anesthesia Type: MAC Anesthesia Focused Assessment* Airway Assessment Mouth opens: >3 cm Mallampati Score: II Focused Labs Anesthesia Preop lab: CBC WBC 4.9 K/mm3 (4.4-11.0) 10/29/23 09:40 RBC 4.16 M/mm3 (4.2-5.4) L 10/29/23 09:40 Hgb 12.5 g/dL (12.0-15.0) 10/29/23 09:40 Hct 39.1 % (37-47) 10/29/23 09:40 Plt Count 220 K/mm3 (150-450) 10/29/23 09:40 CHEMISTRY Potassium 4.9 mmol/L (3.5-5.1) 12/28/23 12:24 Sodium 144 mmol/L (136-145) 10/29/23 09:40 BUN 17 mg/dL (7-18) 10/29/23 09:40 Creatinine 0.76 mg/dL (0.55-1.02) 10/29/23 09:40 Glucose 99 mg/dL (74-106) 10/29/23 09:40 COAG PT 13.7 SECONDS (11.7-14.9) 04/02/15 10:16 Pre-Assessment Diagnosis/Proposed Procedure Planned Operative Procedure(s): COLONOSCOPY Anesthesia History Anesthesia History - registered respiratory technician: Anesthesia History - registered respiratory technician Hx Hospitalization No 08/10/24 08:57 Any Problems With Anesthesia No 08/10/24 08:57 Cholinesterase deficiency No 08/10/24 08:57 You/Your Family Experience No 08/10/24 08:57 fever (hyperthermia) with Relationship Recent Exposure to Contagious No 01/17/24 14:15 Disease Does patient have nerve No 08/10/24 08:57 stimulator Patient instructed to have device shut off --Does patient have Pacemaker or ICD? When Was Last Pacemaker Check QUESTION #4 FULL TEXT: You/Your Family Experience fever (hyperthermia) with Anesthesia Last Oral Intake Last Oral intake: Last Oral Intake NPO since Meds taken in AM with sips of water? Meds patient instructed to take am of surgery PONV PONV - registered respiratory technician: PONV - registered respiratory technician Female Yes 08/10/24 08:57 HX of Motion Sickness No 08/10/24 08:57 HX of N/V After Surgery No 08/10/24 08:57 Non-Smoker Yes 08/10/24 08:57 Duration of Surgery greater No 08/10/24 08:57 than 60 minutes Number of Risk Factors 2 08/10/24 08:57 PONV Score Moderate Risk 08/10/24 08:57 Height & Weight Height & Weight: Anesthesia: Height & Weight Height 5 ft 5 in 02/21/24 13:34 Respiratory Assessment Respiratory Assessment - registered respiratory technician: Respiratory Tract Infection Hx - registered respiratory technician Hx Respiratory Tract Infection No 08/10/24 08:57 STOP Sleep Apnea STOP Sleep Apnea - registered respiratory technician: STOP Sleep Apnea - registered respiratory technician Hx Hypertension No 08/10/24 08:57 Hx Sleep Apnea Yes: STATES WEARS BITE 08/10/24 08:57 CPAP No 08/10/24 08:57 BIPAP No 08/10/24 08:57 Do you snore loudly (louder than talking or can be heard Do you often feel tired/ fatigued/ sleepy during daytime? Has anyone observed you stop breathing during sleep? STOP Results Positive 08/10/24 08:57 QUESTION #5 FULL TEXT : Do you snore loudly (louder than talking or can be heard through closed doors)? 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 Specify any problems Hx of Preganancy in last 3 No 08/10/24 08:57 Months Nurse Filling Out Transfusion [email or web address] 08/10/24 08:57 & Questions: Date: 08/10/24 08/10/24 08:57 Time: 09:02 08/10/24 08:57 Patient unable to answer at this time (ie. confused, unrespo /Reproduction History /Reproductive History - registered respiratory technician: /Reproductive Hx- registered respiratory technician Hx Now Gestational Age (in weeks): EDC: Hx Hx Para Hx Section SAB No 01/17/24 14:15 PFS Medical History History of steroid therapy Hypergammaglobulinemia Diarrhea Immunoglobulin deficiency Hiatal hernia Central hearing loss Migraine Memory loss Neoplasm of uncertain behavior of skin History of colitis Postmenopausal Bilateral foot-drop Bradycardia Tremor Abnormal lung sounds Sleep disturbance Irritable bowel syndrome Urge incontinence Esophageal stricture Hypercholesteremia Closed Colles' fracture of right radius Vitamin B 12 deficiency Carotid stenosis BMI 35.0-35.9,adult Non-smoker Allergic rhinitis, seasonal Esophageal diverticulum Vitamin D deficiency Epicondylitis, lateral, right Mild major depression Coronary artery disease Osteoporosis Polyneuropathy Hypogammaglobulinemia Mild obstructive sleep apnea Degeneration of cervical intervertebral disc Wears hearing aid Wears glasses Anxiety Alcohol use Arthritis Bladder disease Restless legs Injury of head and neck Back pain Parkinson's disease Difficulty swallowing History of IBS Gastric reflux Asthma Shortness of breath on exertion Leg cramps History of edema History of echocardiogram History of stress test Cardiology follow-up encounter Dysphagia Chronic hoarseness Fibromyalgia Pure hypercholesterolemia Ectopic atrial beats Bilateral carotid artery stenosis Pulmonary sarcoidosis GERD (gastroesophageal reflux disease) TERESO (obstructive sleep apnea) Vocal cord paralysis Home Medications ?Medication ?Instructions ?Recorded ?Last Taken ?Type aspirin 81 mg chewable tablet 81 mg PO DAILY@0800 04/03/15 08/08/24 History atorvastatin 10 mg tablet 10 mg PO QHS 04/03/15 Unknown History citalopram 20 mg tablet 20 mg PO DAILY 04/03/15 12/07/22 History folic acid 1 mg tablet 1 mg PO BIDCM 04/03/15 12/07/22 History albuterol sulfate 90 mcg/actuation 1 - 2 puff inhalation Q6H PRN PRN 11/04/18 Unknown History aerosol inhaler Asthma multivitamin with folic acid 400 1 tab PO DAILY 11/04/18 08/08/24 History mcg tablet propranolol 10 mg tablet 10 mg PO BID 12/11/19 12/07/22 History magnesium oxide 400 mg PO DAILY 06/13/20 Unknown History famotidine 20 mg tablet (Pepcid) 20 mg PO PRN PRN GERD 02/06/21 Unknown History sumatriptan succinate 100 mg tablet See Rx Instructions PO .COMPLEX 02/06/21 Unknown History tizanidine 2 mg tablet 2 mg PO QHS PRN Spasms 02/07/21 Unknown History carbidopa 25 mg-levodopa 100 mg 1 tab PO 4X/DAY 10/03/21 12/07/22 History tablet Lactobacillus acidophilus 250 500 mmu cells PO DAILY 08/10/24 Unknown History million cell capsule (Probiotic Acidophilus) calcium 600 mg (as 1 tab PO DAILY 08/10/24 Unknown History carbonate)-vitamin D3 10 mcg (400 unit) tablet (Calcium 600 + D(3)) coenzyme Q10 100 mg capsule (Co 100 mg PO DAILY 08/10/24 Unknown History Q-10) melatonin 10 mg capsule 10 mg PO QHS 08/10/24 Unknown History omeprazole 40 mg capsule,delayed 40 mg PO DAILY 08/10/24 Unknown History release turmeric 400 mg capsule 400 mg PO DAILY 08/10/24 Unknown History Allergy/AdvReac Type Severity Reaction Status Date / Time celecoxib (From Celebrex) Allergy Unknown Verified 08/10/24 08:50 meperidine HCl (From Demerol) Allergy Unknown Verified 08/10/24 08:50 metoclopramide HCl (From Allergy Unknown Verified 08/10/24 08:50 Reglan) suture Allergy NEEDS Verified 08/10/24 08:50 FOLLOW-UP Family History Mother CHF (congestive heart failure) Sister CHF (congestive heart failure) Sister CAD (coronary artery disease) Myocardial infarction Presence of permanent cardiac pacemaker Aortic stenosis, severe Surgical History vocal cord surgery History of left heart catheterization (LHC) (~04/04/15) History of left breast biopsy History of Dorie fundoplication History of repair of hiatal hernia History of laminectomy History of fusion of cervical spine Social History household members: spouse and family Smoking Status: Never smoker alcohol intake: current details: occasional substance use type: does not use diet: other caffeine: Yes (occasional) what type of physical activity do you participate in: walking frequency: 3-4 times per week Review of Systems (Anesthesia) ROS Narrative System reviewed and no additional complaints, except as documented.
--- NOTE | 2024-08-14 11:30 | COLBX_PTH ---
PATIENT: SHANTANU BOWIE LOC: EN U#:[id number] AGE/SX: 74/F ROOM: RE08/14/[address]: Dr. Jose Raul Owen DO : 1950 BED: DIS: 08/14/2024 SPEC #: [id number] RECD: 08/14/24 13:05 STATUS: AJAY SAI #: [id number] ENMA: 08/14/24 11:[address]: Jose Raul Owen DEPT: SURGICAL PATHOLOGY RECD BY: Lesvia Mckeon ENTERED: 08/14/24 13:43 SP TYPE: COLON BX OTHR DR: Dr. Mercy Bryant MD Tissues: A - COLON BIOPSY B - Sigmoid colon biopsy C - Rectum, NOS Procedures: Surgery Specimen Level IV HEADER OPERATION: Colonoscopy biopsy and polypectomy PRE-OP DIAGNOSIS: GERD, family history of colon polyps, esophageal motility disorder TISSUE SUBMITTED: A- Splenic flexure polyp biopsy, B- Sigmoid colon polyp biopsy, C- Rectum polyp MICROSCOPIC DIAGNOSIS A. Colonic polyp at splenic flexure, biopsy: Fragments of tubular adenoma. B. Sigmoid colon polyp, biopsy: Tubular adenoma. C. Rectal polyp, biopsy: Hyperplastic polyp. AM. 08/15/2024 MICROSCOPIC DESCRIPTION Slides are reviewed. GROSS DESCRIPTION A. Received in fixative is one container labeled with the patient's name and designated Splenic flexure polyp. The specimen consists of two irregular fragments of light de la cruz soft tissue that in aggregate measure 0.5 x 0.3 x 0.1 cm. The specimen is totally submitted in one cassette. B. Received in fixative is one container labeled with the patient's name and designated Sigmoid colon polyp. The specimen consists of one irregular fragment of light de la cruz soft tissue that measures 0.5 x 0.5 x 0.1 cm. The specimen is totally submitted in one cassette. C. Received in fixative is one container labeled with the patient's name and designated Rectum polyp. The specimen consists of multiple irregular fragments of light de la cruz soft tissue that in aggregate measure 0.7 x 0.2 x 0.1 cm. The specimen is totally submitted in one cassette. AM. 08/14/2024 TC:5 CPT:22430q2
--- NOTE | 2024-08-14 12:24 | OP.CCLET_ITS ---
08/14/2024 Mercy Bryant Re : Colonoscopy procedure for Nichelle Obrien Cullenmellotrinidad This procedure was performed on Wednesday, August 14, 2024. My impressions and recommendations are as follows: Impressions : - Preparation of the colon was fair. - Two 1 to 2 mm polyps at the splenic flexure and at the hepatic flexure, removed with a jumbo cold forceps. Resected and retrieved. - One 10 mm polyp in the rectum, removed with a hot snare. Resected and retrieved. - Diverticulosis in the recto-sigmoid colon, in the sigmoid colon and in the descending colon. - The examination was otherwise normal on direct and retroflexion views. - The entire examined colon is normal. - Stool in the recto-sigmoid colon, in the sigmoid colon and in the descending colon. Recommendations : - Discharge patient to home. - Resume previous diet. - Continue present medications. - Await pathology results. - Repeat colonoscopy in 3 years for surveillance. My findings are described in the full procedure note, which is enclosed. If I can be of further assistance, please feel free to contact me at . Sincerely, Jose Raul Owen, 08/14/2024 12:23:18 PM This report has been signed electronically.
--- NOTE | 2024-08-14 12:24 | OP.COLON_ITS ---
Patient Name: Nichelle Denise Procedure Date: 08/14/2024 11:38 AM Date of : 1950 Age: 74 Procedure: Colonoscopy Indications: High risk colon cancer surveillance: Personal history of colonic polyps, Family history of colon cancer in a first-degree relative before age 60 years Providers: Jose Raul Owen DO Referring MD: Mercy Bryant Medicines: Monitored Anesthesia Care Patient Profile: This is a 74 year old female. Refer to note in patient chart for documentation of history and physical. Last Colonoscopy: 5 years ago. Complications: No immediate complications. Procedure: Pre-Anesthesia Assessment: - Prior to the procedure, a History and Physical was performed, and patient medications and allergies were reviewed. The patient is competent. The risks and benefits of the procedure and the sedation options and risks were discussed with the patient. All questions were answered and informed consent was obtained. Patient identification and proposed procedure were verified by the physician. Mental Status Examination: normal. CV Examination: normal. Prophylactic Antibiotics: The patient does not require prophylactic antibiotics. Prior Anticoagulants: The patient has taken no anticoagulant or antiplatelet agents except for NSAID medication. ASA Grade Assessment: II - A patient with mild systemic disease. After reviewing the risks and benefits, the patient was deemed in satisfactory condition to undergo the procedure. The anesthesia plan was to use monitored anesthesia care (MAC). Immediately prior to administration of medications, the patient was re-assessed for adequacy to receive sedatives. The heart rate, respiratory rate, oxygen saturations, blood pressure, adequacy of pulmonary ventilation, and response to care were monitored throughout the procedure. The physical status of the patient was re-assessed after the procedure. After I obtained informed consent, the scope was passed under direct vision. Throughout the procedure, the patient's blood pressure, pulse, and oxygen saturations were monitored continuously. The colonoscope was introduced through the anus and advanced to the cecum, identified by appendiceal orifice and ileocecal valve. The colonoscopy was performed without difficulty. The patient tolerated the procedure well. The quality of the bowel preparation was fair. Scope In: 11:48:22 AM Scope Withdrawal Time 0 hours 10 minutes 40 seconds Scope Out: 12:10:51 PM Total Procedure Duration Time 0 hours 22 minutes 29 seconds Findings: The perianal and digital rectal examinations were normal. Two sessile polyps were found in the splenic flexure and hepatic flexure. The polyps were 1 to 2 mm in size. These polyps were removed with a jumbo cold forceps. Resection and retrieval were complete. Verification of patient identification for the specimen was done. Estimated blood loss was minimal. A 10 mm polyp was found in the rectum. The polyp was sessile. The polyp was removed with a hot snare. Resection and retrieval were complete. Verification of patient identification for the specimen was done. Estimated blood loss was minimal. A few small-mouthed diverticula were found in the recto-sigmoid colon, sigmoid colon and descending colon. The exam was otherwise without abnormality on direct and retroflexion views. The entire examined colon appeared normal. Stool was found in the recto-sigmoid colon, in the sigmoid colon and in the descending colon. Impression: - Preparation of the colon was fair. - Two 1 to 2 mm polyps at the splenic flexure and at the hepatic flexure, removed with a jumbo cold forceps. Resected and retrieved. - One 10 mm polyp in the rectum, removed with a hot snare. Resected and retrieved. - Diverticulosis in the recto-sigmoid colon, in the sigmoid colon and in the descending colon. - The examination was otherwise normal on direct and retroflexion views. - The entire examined colon is normal. - Stool in the recto-sigmoid colon, in the sigmoid colon and in the descending colon. Recommendation: - Discharge patient to home. - Resume previous diet. - Continue present medications. - Await pathology results. - Repeat colonoscopy in 3 years for surveillance. Procedure Code(s): --- Professional --- 71870, Colonoscopy, flexible; with removal of tumor(s), polyp(s), or other lesion(s) by snare technique 96304, 59, Colonoscopy, flexible; with biopsy, single or multiple CPT copyright 2021 [employer]. All rights reserved. The codes documented in this report are preliminary and upon water purifier operator review may be revised to meet current compliance requirements. Jose Raul Owen DO 08/14/2024 12:23:18 PM This report has been signed electronically. Number of Addenda: 0 Note Initiated On: 08/14/2024 11:38 AM
--- NOTE | 2024-08-14 12:27 | PCM.POST.ANE ---
Anesthesia: Postop Eval I Current Vital Signs Temperature: 97.4 F Pulse Rate: 64 Blood Pressure: 114/71 Respiratory Rate: 16 Pulse Ox: 98 Oxygen Delivery Method: Room Air Assessment Airway patent: Yes Spontaneous unlabored respirations: Yes Mental status: Asleep nausea: No Vomiting: No Anesthesia Complication: No Fluid Hydration Crystalloid volume administer (ml): 50 Total IV fluid infused: 50 Progress Note Anesthesia document: Postop Eval 1 completed: Yes
--- NOTE | 2024-08-14 12:38 | PCM.POSTANE2 ---
Anesthesia Postop Eval I Sum Postop Eval Completion status Anesthesia document: Postop Eval 1 completed: Yes Anesthesia Postop Eval I Summary Anesthesia Postop Eval I Summary: Anesthesia Postop Eval I: Assessment Summary Airway patent Yes 08/14/24 12:29 [email or web address] Spontaneous unlabored Yes 08/14/24 12:29 [email or web address] respirations Mental status Asleep 08/14/24 12:29 [email or web address] nausea No 08/14/24 12:29 [email or web address] Vomiting No 08/14/24 12:29 [email or web address] Anesthesia Postop Eval I: Fluid Summary Crystalloid volume administer 50 08/14/24 12:29 [email or web address] (ml) Colloids volume administered ( ml) Blood Product volume administered (ml) Total IV fluid infused 50 08/14/24 12:29 [email or web address] Anesthesia Postop Eval I: Summary Notes Anesthesia Complication No 08/14/24 12:29 [email or web address] Anesthesia Complication Comment: Post-operative progress note Anesthesia: Postop Eval II Evaluation Mental status: Awake Pain Level: 0 nausea: No Vomiting: No
== END 2024-08-14 13:00 | disposition home or self-care (01) ==
LOC: EN 10:24 → AC 10:25
PROVIDERS: PCP Internal Medicine; Referring Provider Internal Medicine; Visit Provider Internal Medicine Gastroenterology
PROC: 0DJD8ZZ Inspection of Lower Intestinal Tract, Via Natural or Artificial Opening Endoscopic (ICD-10-PCS; CPT 45378; principal; 2024-08-14 11:25)
DX: Z12.11 Encounter for screening for malignant neoplasm of colon (principal); K21.9 Gastro-esophageal reflux disease without esophagitis; K57.30 Diverticulosis of large intestine without perforation or abscess without bleeding; D12.3 Benign neoplasm of transverse colon; K62.1 Rectal polyp; G47.33 Obstructive sleep apnea (adult) (pediatric); E78.00 Pure hypercholesterolemia, unspecified; J45.909 Unspecified asthma, uncomplicated; I25.10 Atherosclerotic heart disease of native coronary artery without angina pectoris; Z86.0100 Personal history of colon polyps, unspecified; Z79.51 Long term (current) use of inhaled steroids; Z79.82 Long term (current) use of aspirin; Z79.899 Other long term (current) drug therapy; Z80.0 Family history of malignant neoplasm of digestive organs
CPT/HCPCS: 45385; 45380; 88305; A4216; J2405

== ENCOUNTER 2024-09-25 06:51 | Day surgery (SDC) | payer MEDICARE, SELFPAY ==
--- NOTE | 2024-09-21 17:40 | PAT.ANESEVAL ---
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 When Was Last Pacemaker Check QUESTION #4 FULL TEXT: You/Your Family Experience fever (hyperthermia) with Anesthesia Last Oral Intake Last Oral intake: Last Oral Intake NPO since Meds taken in AM with sips of water? Meds patient instructed to take am of surgery PONV PONV - travertine installer: PONV - travertine installer Female Yes 09/21/24 08:51 HX of Motion Sickness No 09/21/24 08:51 HX of N/V After Surgery No 09/21/24 08:51 Non-Smoker Yes 09/21/24 08:51 Duration of Surgery greater No 09/21/24 08:51 than 60 minutes Number of Risk Factors 2 09/21/24 08:51 PONV Score Moderate Risk 09/21/24 08:51 Height & Weight Height & Weight: Anesthesia: Height & Weight Height 5 ft 5 in 08/14/24 11:20 Respiratory Assessment Respiratory Assessment - travertine installer: Respiratory Tract Infection Hx - travertine installer Hx Respiratory Tract Infection Yes: FINISHING LEVAQUIN, NO 09/21/24 08:51 FEVERS STOP Sleep Apnea STOP Sleep Apnea - travertine installer: STOP Sleep Apnea - travertine installer Hx Hypertension No 09/21/24 08:51 Hx Sleep Apnea Yes: HAS BITE 09/21/24 08:51 CPAP No 09/21/24 08:51 BIPAP No 09/21/24 08:51 Do you snore loudly (louder than talking or can be heard Do you often feel tired/ fatigued/ sleepy during daytime? Has anyone observed you stop breathing during sleep? STOP Results Positive 09/21/24 08:51 QUESTION #5 FULL TEXT : Do you snore loudly (louder than talking or can be heard through closed doors)? 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 Specify any problems Hx of Preganancy in last 3 No 09/21/24 08:51 Months Nurse Filling Out Transfusion [email or web address] 09/21/24 08:51 & Questions: Date: 09/21/24 09/21/24 08:51 Time: 08:53 09/21/24 08:51 Patient unable to answer at this time (ie. confused, unrespo /Reproduction History /Reproductive History - travertine installer: /Reproductive Hx- travertine installer Hx Now Gestational Age (in weeks): EDC: Hx Hx Para Hx Section SAB No 01/17/24 14:15 PFSH Medical History Ambulates with cane History of irregular heartbeat History of steroid therapy Hypergammaglobulinemia Diarrhea Immunoglobulin deficiency Hiatal hernia Central hearing loss Migraine Memory loss Neoplasm of uncertain behavior of skin History of colitis Postmenopausal Bilateral foot-drop Bradycardia Tremor Abnormal lung sounds Sleep disturbance Irritable bowel syndrome Urge incontinence Esophageal stricture Hypercholesteremia Closed Colles' fracture of right radius Vitamin B 12 deficiency Carotid stenosis BMI 35.0-35.9,adult Non-smoker Allergic rhinitis, seasonal Esophageal diverticulum Vitamin D deficiency Epicondylitis, lateral, right Mild major depression Coronary artery disease Osteoporosis Polyneuropathy Hypogammaglobulinemia Mild obstructive sleep apnea Degeneration of cervical intervertebral disc Wears hearing aid Wears glasses Anxiety Alcohol use Arthritis Bladder disease Restless legs Injury of head and neck Back pain Parkinson's disease Difficulty swallowing History of IBS Gastric reflux Asthma Shortness of breath on exertion Leg cramps History of edema History of echocardiogram History of stress test Cardiology follow-up encounter Dysphagia Chronic hoarseness Fibromyalgia Pure hypercholesterolemia Ectopic atrial beats Bilateral carotid artery stenosis Pulmonary sarcoidosis GERD (gastroesophageal reflux disease) TERESO (obstructive sleep apnea) Vocal cord paralysis Home Medications ?Medication ?Instructions ?Recorded ?Last Taken ?Type aspirin 81 mg chewable tablet 81 mg PO DAILY@0800 04/03/15 09/23/24 History atorvastatin 10 mg tablet 10 mg PO QHS 04/03/15 09/24/24 History citalopram 20 mg tablet 20 mg PO DAILY 04/03/15 09/24/24 History folic acid 1 mg tablet 1 mg PO BIDCM 04/03/15 09/24/24 History albuterol sulfate 90 mcg/actuation 1 - 2 puff inhalation Q6H PRN PRN 11/04/18 09/25/24 History aerosol inhaler Asthma multivitamin with folic acid 400 1 tab PO DAILY 11/04/18 09/24/24 History mcg tablet propranolol 10 mg tablet 10 mg PO BID 12/11/19 09/24/24 History magnesium oxide 400 mg PO DAILY 06/13/20 09/24/24 History famotidine 20 mg tablet (Pepcid) 20 mg PO PRN PRN GERD 02/06/21 09/24/24 History sumatriptan succinate 100 mg tablet See Rx Instructions PO .COMPLEX 02/06/21 08/12/24 History tizanidine 2 mg tablet 2 mg PO QHS PRN Spasms 02/07/21 09/24/24 History carbidopa 25 mg-levodopa 100 mg 1 tab PO 4X/DAY 10/03/21 09/24/24 History tablet Lactobacillus acidophilus 250 500 mmu cells PO DAILY 08/10/24 09/24/24 History million cell capsule (Probiotic Acidophilus) calcium 600 mg (as 1 tab PO DAILY 08/10/24 09/24/24 History carbonate)-vitamin D3 10 mcg (400 unit) tablet (Calcium 600 + D(3)) coenzyme Q10 100 mg capsule (Co 100 mg PO DAILY 08/10/24 09/24/24 History Q-10) melatonin 10 mg capsule 10 mg PO QHS 08/10/24 09/24/24 History omeprazole 40 mg capsule,delayed 40 mg PO DAILY 08/10/24 08/13/24 History release turmeric 400 mg capsule 400 mg PO DAILY 08/10/24 09/24/24 History amitriptyline 10 mg tablet 10 mg PO QHS #30 tabs 08/22/24 09/24/24 Rx alprazolam 0.25 mg tablet 0.25 mg PO TID PRN anxiety #30 tabs 10/02/24 Unknown Rx Allergy/AdvReac Type Severity Reaction Status Date / Time celecoxib (From Celebrex) Allergy Unknown Verified 09/25/24 07:10 meperidine HCl (From Demerol) Allergy Unknown Verified 09/25/24 07:10 metoclopramide HCl (From Allergy Unknown Verified 09/25/24 07:10 Reglan) suture Allergy NEEDS Verified 09/25/24 07:10 FOLLOW-UP Family History Mother CHF (congestive heart failure) Sister CHF (congestive heart failure) Sister CAD (coronary artery disease) Myocardial infarction Presence of permanent cardiac pacemaker Aortic stenosis, severe Surgical History vocal cord surgery History of left heart catheterization (LHC) (~04/04/15) History of left breast biopsy History of Dorie fundoplication History of repair of hiatal hernia History of laminectomy History of fusion of cervical spine Social History household members: spouse and family Smoking Status: Never smoker alcohol intake: current details: occasional substance use type: does not use diet: other caffeine: Yes (occasional) what type of physical activity do you participate in: walking frequency: 3-4 times per week Recommendation Anesthesia Recommendation Anesthesia recommendation: OPTIMIZED for anesthesia
--- NOTE | 2024-09-21 17:41 | PAT.ANESEVAL ---
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 When Was Last Pacemaker Check QUESTION #4 FULL TEXT: You/Your Family Experience fever (hyperthermia) with Anesthesia Last Oral Intake Last Oral intake: Last Oral Intake NPO since Meds taken in AM with sips of water? Meds patient instructed to take am of surgery PONV PONV - tow truck dispatcher: PONV - tow truck dispatcher Female Yes 09/21/24 08:51 HX of Motion Sickness No 09/21/24 08:51 HX of N/V After Surgery No 09/21/24 08:51 Non-Smoker Yes 09/21/24 08:51 Duration of Surgery greater No 09/21/24 08:51 than 60 minutes Number of Risk Factors 2 09/21/24 08:51 PONV Score Moderate Risk 09/21/24 08:51 Height & Weight Height & Weight: Anesthesia: Height & Weight Height 5 ft 5 in 08/14/24 11:20 Respiratory Assessment Respiratory Assessment - tow truck dispatcher: Respiratory Tract Infection Hx - tow truck dispatcher Hx Respiratory Tract Infection Yes: FINISHING LEVAQUIN, NO 09/21/24 08:51 FEVERS STOP Sleep Apnea STOP Sleep Apnea - tow truck dispatcher: STOP Sleep Apnea - tow truck dispatcher Hx Hypertension No 09/21/24 08:51 Hx Sleep Apnea Yes: HAS BITE 09/21/24 08:51 CPAP No 09/21/24 08:51 BIPAP No 09/21/24 08:51 Do you snore loudly (louder than talking or can be heard Do you often feel tired/ fatigued/ sleepy during daytime? Has anyone observed you stop breathing during sleep? STOP Results Positive 09/21/24 08:51 QUESTION #5 FULL TEXT : Do you snore loudly (louder than talking or can be heard through closed doors)? 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 Specify any problems Hx of Preganancy in last 3 No 09/21/24 08:51 Months Nurse Filling Out Transfusion [email or web address] 09/21/24 08:51 & Questions: Date: 09/21/24 09/21/24 08:51 Time: 08:53 09/21/24 08:51 Patient unable to answer at this time (ie. confused, unrespo /Reproduction History /Reproductive History - tow truck dispatcher: /Reproductive Hx- tow truck dispatcher Hx Now Gestational Age (in weeks): EDC: Hx Hx Para Hx Section SAB No 01/17/24 14:15 PFSH Medical History Ambulates with cane History of irregular heartbeat History of steroid therapy Hypergammaglobulinemia Diarrhea Immunoglobulin deficiency Hiatal hernia Central hearing loss Migraine Memory loss Neoplasm of uncertain behavior of skin History of colitis Postmenopausal Bilateral foot-drop Bradycardia Tremor Abnormal lung sounds Sleep disturbance Irritable bowel syndrome Urge incontinence Esophageal stricture Hypercholesteremia Closed Colles' fracture of right radius Vitamin B 12 deficiency Carotid stenosis BMI 35.0-35.9,adult Non-smoker Allergic rhinitis, seasonal Esophageal diverticulum Vitamin D deficiency Epicondylitis, lateral, right Mild major depression Coronary artery disease Osteoporosis Polyneuropathy Hypogammaglobulinemia Mild obstructive sleep apnea Degeneration of cervical intervertebral disc Wears hearing aid Wears glasses Anxiety Alcohol use Arthritis Bladder disease Restless legs Injury of head and neck Back pain Parkinson's disease Difficulty swallowing History of IBS Gastric reflux Asthma Shortness of breath on exertion Leg cramps History of edema History of echocardiogram History of stress test Cardiology follow-up encounter Dysphagia Chronic hoarseness Fibromyalgia Pure hypercholesterolemia Ectopic atrial beats Bilateral carotid artery stenosis Pulmonary sarcoidosis GERD (gastroesophageal reflux disease) TERESO (obstructive sleep apnea) Vocal cord paralysis Home Medications ?Medication ?Instructions ?Recorded ?Last Taken ?Type aspirin 81 mg chewable tablet 81 mg PO DAILY@0800 04/03/15 08/08/24 History atorvastatin 10 mg tablet 10 mg PO QHS 04/03/15 Unknown History citalopram 20 mg tablet 20 mg PO DAILY 04/03/15 08/13/24 History folic acid 1 mg tablet 1 mg PO BIDCM 04/03/15 08/13/24 History albuterol sulfate 90 mcg/actuation 1 - 2 puff inhalation Q6H PRN PRN 11/04/18 08/14/24 History aerosol inhaler Asthma multivitamin with folic acid 400 1 tab PO DAILY 11/04/18 08/08/24 History mcg tablet propranolol 10 mg tablet 10 mg PO BID 12/11/19 08/13/24 History magnesium oxide 400 mg PO DAILY 06/13/20 08/13/24 History famotidine 20 mg tablet (Pepcid) 20 mg PO PRN PRN GERD 02/06/21 08/13/24 History sumatriptan succinate 100 mg tablet See Rx Instructions PO .COMPLEX 02/06/21 08/12/24 History tizanidine 2 mg tablet 2 mg PO QHS PRN Spasms 02/07/21 08/13/24 History carbidopa 25 mg-levodopa 100 mg 1 tab PO 4X/DAY 10/03/21 08/13/24 History tablet Lactobacillus acidophilus 250 500 mmu cells PO DAILY 08/10/24 08/13/24 History million cell capsule (Probiotic Acidophilus) calcium 600 mg (as 1 tab PO DAILY 08/10/24 08/11/24 History carbonate)-vitamin D3 10 mcg (400 unit) tablet (Calcium 600 + D(3)) coenzyme Q10 100 mg capsule (Co 100 mg PO DAILY 08/10/24 08/13/24 History Q-10) melatonin 10 mg capsule 10 mg PO QHS 08/10/24 08/13/24 History omeprazole 40 mg capsule,delayed 40 mg PO DAILY 08/10/24 08/13/24 History release turmeric 400 mg capsule 400 mg PO DAILY 08/10/24 08/13/24 History amitriptyline 10 mg tablet 10 mg PO QHS #30 tabs 08/22/24 Unknown Rx Allergy/AdvReac Type Severity Reaction Status Date / Time celecoxib (From Celebrex) Allergy Unknown Verified 09/21/24 14:13 meperidine HCl (From Demerol) Allergy Unknown Verified 09/21/24 14:13 metoclopramide HCl (From Allergy Unknown Verified 09/21/24 14:13 Reglan) suture Allergy NEEDS Verified 09/21/24 14:13 FOLLOW-UP Family History Mother CHF (congestive heart failure) Sister CHF (congestive heart failure) Sister CAD (coronary artery disease) Myocardial infarction Presence of permanent cardiac pacemaker Aortic stenosis, severe Surgical History vocal cord surgery History of left heart catheterization (LHC) (~04/04/15) History of left breast biopsy History of Dorie fundoplication History of repair of hiatal hernia History of laminectomy History of fusion of cervical spine Social History household members: spouse and family Smoking Status: Never smoker alcohol intake: current details: occasional substance use type: does not use diet: other caffeine: Yes (occasional) what type of physical activity do you participate in: walking frequency: 3-4 times per week Audit: Pertinent Findings Pertinent Findings Echo (EF%) pertinent findings: 09/23/2022 ejection fraction 65% PA pressure 24 Consult pertinent findings: Cardiology 02/21/2024 hyper cholesterol continue follow-up with primary care service bilateral carotid carotid artery stenosis no bruit noted Additional pertinent findings: Carotid duplex 03/14/2024 less than 50% stenosis right extracranial internal artery no significant stenosis in the left internal carotid artery Recommendation Anesthesia Recommendation Anesthesia recommendation: OPTIMIZED for anesthesia
[2024-09-25] VITALS (8 sets, daily range): BP systolic 121–146; BP diastolic 68–78; PULSE 56–67; RESP 17–18; TEMP 36.3–36.8; O2SAT 94–98; BMI 37.1
--- NOTE | 2024-09-25 07:52 | PCM.PRE.AN2 ---
ASA Classification* ASA Classification ASA Classification: 3 Assessment & Plan Anesthesia* Anesthesia Assessment Anesthesia Assessment: Discussed sedation and/or anesthesia options, risks, benefits, and alternatives with patient/parents/legal guardian/POA. Questions invited. The patient/parents/legal guardian/POA seems to understand and agrees to proceed with anesthesia plan. Reviewed the physical assessment, medical history, allergy history and patient home medications list prior to surgery/procedure/anesthetic and documented any changes. Performed airway and anesthesia risk assessments. Anesthesia Type Anesthesia Type: MAC Anesthesia Focused Assessment* Temperature: 97.3 F Pulse Rate: 58 Blood Pressure: 146/78 Respiratory Rate: 18 Pulse Ox: 97 Airway Assessment Mouth opens: >3 cm Mallampati Score: II Focused Labs Anesthesia Preop lab: CBC WBC 4.9 K/mm3 (4.4-11.0) 10/29/23 09:40 RBC 4.16 M/mm3 (4.2-5.4) L 10/29/23 09:40 Hgb 12.5 g/dL (12.0-15.0) 10/29/23 09:40 Hct 39.1 % (37-47) 10/29/23 09:40 Plt Count 220 K/mm3 (150-450) 10/29/23 09:40 CHEMISTRY Potassium 4.9 mmol/L (3.5-5.1) 12/28/23 12:24 Sodium 144 mmol/L (136-145) 10/29/23 09:40 BUN 17 mg/dL (7-18) 10/29/23 09:40 Creatinine 0.76 mg/dL (0.55-1.02) 10/29/23 09:40 Glucose 99 mg/dL (74-106) 10/29/23 09:40 COAG PT 13.7 SECONDS (11.7-14.9) 04/02/15 10:16 Pre-Assessment Diagnosis/Proposed Procedure Planned Operative Procedure(s): RADIO FREQ ABLATION LEFT SIDE l4,5,s1 Anesthesia History Anesthesia History - workers compensation administrator: Anesthesia History - workers compensation administrator Hx Hospitalization No 09/21/24 08:51 Any Problems With Anesthesia No 09/21/24 08:51 Cholinesterase deficiency No 09/21/24 08:51 You/Your Family Experience No 09/21/24 08:51 fever (hyperthermia) with Relationship Recent Exposure to Contagious No 09/25/24 07:12 Disease Does patient have nerve No 09/21/24 08:51 stimulator Patient instructed to have device shut off --Does patient have Pacemaker No 09/25/24 07:12 or ICD? When Was Last Pacemaker Check QUESTION #4 FULL TEXT: You/Your Family Experience fever (hyperthermia) with Anesthesia Last Oral Intake Last Oral intake: Last Oral Intake NPO since 21:30 09/25/24 07:12 Meds taken in AM with sips of No 09/25/24 07:12 water? Meds patient instructed to take am of surgery PONV PONV - workers compensation administrator: PONV - workers compensation administrator Female Yes 09/21/24 08:51 HX of Motion Sickness No 09/21/24 08:51 HX of N/V After Surgery No 09/21/24 08:51 Non-Smoker Yes 09/21/24 08:51 Duration of Surgery greater No 09/21/24 08:51 than 60 minutes Number of Risk Factors 2 09/21/24 08:51 PONV Score Moderate Risk 09/21/24 08:51 Height & Weight Height & Weight: Anesthesia: Height & Weight Height 5 ft 5 in 09/25/24 07:12 Weight: 101.2 kg 09/25/24 07:12 Body Mass Index (BMI) 37.1 09/25/24 07:12 Respiratory Assessment Respiratory Assessment - workers compensation administrator: Respiratory Tract Infection Hx - workers compensation administrator Hx Respiratory Tract Infection Yes: FINISHING LEVAQUIN, NO 09/21/24 08:51 FEVERS STOP Sleep Apnea STOP Sleep Apnea - workers compensation administrator: STOP Sleep Apnea - workers compensation administrator Hx Hypertension No 09/21/24 08:51 Hx Sleep Apnea Yes: HAS BITE 09/21/24 08:51 CPAP No 09/21/24 08:51 BIPAP No 09/21/24 08:51 Do you snore loudly (louder than talking or can be heard Do you often feel tired/ fatigued/ sleepy during daytime? Has anyone observed you stop breathing during sleep? STOP Results Positive 09/21/24 08:51 QUESTION #5 FULL TEXT : Do you snore loudly (louder than talking or can be heard through closed doors)? Tobacco Use History Tobacco Use History - workers compensation administrator: Tobacco Use History - workers compensation administrator Tobacco Use Smoking Status Never smoker 09/21/24 08:51 Hx Tobacco Use No 09/21/24 08:51 Years Smoking Packs Smoked per Day Smoking Cessation Date was within the last 15 years Hx Smoking Cessation Date Hx Smoking Cessation Counseling Hematologic Medial History Hematologic Hx - workers compensation administrator: Hematologic Medical Hx - test preparer Hx of Blood Transfusion No 09/21/24 08:51 Hx of Transfusion in last 3 No 09/21/24 08:51 Months Date of Last Transfusion (if within last 3 months) Ever experience any problems No 09/21/24 08:51 with transfusion(s)? Specify any problems Hx of Preganancy in last 3 No 09/21/24 08:51 Months Nurse Filling Out Transfusion [email or web address] 09/21/24 08:51 & Questions: Date: 09/21/24 09/21/24 08:51 Time: 08:53 09/21/24 08:51 Patient unable to answer at this time (ie. confused, unrespo /Reproduction History /Reproductive History - workers compensation administrator: /Reproductive Hx- workers compensation administrator Hx Now Gestational Age (in weeks): EDC: Hx Hx Para Hx Section SAB No 01/17/24 14:15 PFSH Medical History Ambulates with cane History of irregular heartbeat History of steroid therapy Hypergammaglobulinemia Diarrhea Immunoglobulin deficiency Hiatal hernia Central hearing loss Migraine Memory loss Neoplasm of uncertain behavior of skin History of colitis Postmenopausal Bilateral foot-drop Bradycardia Tremor Abnormal lung sounds Sleep disturbance Irritable bowel syndrome Urge incontinence Esophageal stricture Hypercholesteremia Closed Colles' fracture of right radius Vitamin B 12 deficiency Carotid stenosis BMI 35.0-35.9,adult Non-smoker Allergic rhinitis, seasonal Esophageal diverticulum Vitamin D deficiency Epicondylitis, lateral, right Mild major depression Coronary artery disease Osteoporosis Polyneuropathy Hypogammaglobulinemia Mild obstructive sleep apnea Degeneration of cervical intervertebral disc Wears hearing aid Wears glasses Anxiety Alcohol use Arthritis Bladder disease Restless legs Injury of head and neck Back pain Parkinson's disease Difficulty swallowing History of IBS Gastric reflux Asthma Shortness of breath on exertion Leg cramps History of edema History of echocardiogram History of stress test Cardiology follow-up encounter Dysphagia Chronic hoarseness Fibromyalgia Pure hypercholesterolemia Ectopic atrial beats Bilateral carotid artery stenosis Pulmonary sarcoidosis GERD (gastroesophageal reflux disease) TERESO (obstructive sleep apnea) Vocal cord paralysis Home Medications ?Medication ?Instructions ?Recorded ?Last Taken ?Type aspirin 81 mg chewable tablet 81 mg PO DAILY@0800 04/03/15 09/23/24 History atorvastatin 10 mg tablet 10 mg PO QHS 04/03/15 09/24/24 History citalopram 20 mg tablet 20 mg PO DAILY 04/03/15 09/24/24 History folic acid 1 mg tablet 1 mg PO BIDCM 04/03/15 09/24/24 History albuterol sulfate 90 mcg/actuation 1 - 2 puff inhalation Q6H PRN PRN 11/04/18 09/25/24 History aerosol inhaler Asthma multivitamin with folic acid 400 1 tab PO DAILY 11/04/18 09/24/24 History mcg tablet propranolol 10 mg tablet 10 mg PO BID 12/11/19 09/24/24 History magnesium oxide 400 mg PO DAILY 06/13/20 09/24/24 History famotidine 20 mg tablet (Pepcid) 20 mg PO PRN PRN GERD 02/06/21 09/24/24 History sumatriptan succinate 100 mg tablet See Rx Instructions PO .COMPLEX 02/06/21 08/12/24 History tizanidine 2 mg tablet 2 mg PO QHS PRN Spasms 02/07/21 09/24/24 History carbidopa 25 mg-levodopa 100 mg 1 tab PO 4X/DAY 10/03/21 09/24/24 History tablet Lactobacillus acidophilus 250 500 mmu cells PO DAILY 08/10/24 09/24/24 History million cell capsule (Probiotic Acidophilus) calcium 600 mg (as 1 tab PO DAILY 08/10/24 09/24/24 History carbonate)-vitamin D3 10 mcg (400 unit) tablet (Calcium 600 + D(3)) coenzyme Q10 100 mg capsule (Co 100 mg PO DAILY 08/10/24 09/24/24 History Q-10) melatonin 10 mg capsule 10 mg PO QHS 08/10/24 09/24/24 History omeprazole 40 mg capsule,delayed 40 mg PO DAILY 08/10/24 08/13/24 History release turmeric 400 mg capsule 400 mg PO DAILY 08/10/24 09/24/24 History amitriptyline 10 mg tablet 10 mg PO QHS #30 tabs 08/22/24 09/24/24 Rx Allergy/AdvReac Type Severity Reaction Status Date / Time celecoxib (From Celebrex) Allergy Unknown Verified 09/25/24 07:10 meperidine HCl (From Demerol) Allergy Unknown Verified 09/25/24 07:10 metoclopramide HCl (From Allergy Unknown Verified 09/25/24 07:10 Reglan) suture Allergy NEEDS Verified 09/25/24 07:10 FOLLOW-UP Family History Mother CHF (congestive heart failure) Sister CHF (congestive heart failure) Sister CAD (coronary artery disease) Myocardial infarction Presence of permanent cardiac pacemaker Aortic stenosis, severe Surgical History vocal cord surgery History of left heart catheterization (LHC) (~04/04/15) History of left breast biopsy History of Dorie fundoplication History of repair of hiatal hernia History of laminectomy History of fusion of cervical spine Social History household members: spouse and family Smoking Status: Never smoker alcohol intake: current details: occasional substance use type: does not use diet: other caffeine: Yes (occasional) what type of physical activity do you participate in: walking frequency: 3-4 times per week Review of Systems (Anesthesia) ROS Narrative System reviewed and no additional complaints, except as documented.
--- NOTE | 2024-09-25 08:54 | RAD_ITS ---
PROCEDURE: Radiofrequency ablation left side from L4 to S1 DATE OF EXAMINATION: 09/25/2024 INDICATION: Female, 74 years old. Low back pain PHYSICIAN: Antonio Farris MD FLUOROSCOPY TIME (if supplied): (13.6) seconds 6 images obtained RADIATION DOSAGE (If Supplied By Facility): CTDIvol = ( 8.77 ) mGy, DLP = ( ) mGycm CONSENT: The risks, benefits and alternatives to the procedure were explained to the patient, and the patient agreed to the procedure and signed the consent. 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 PROCEDURE/TECHNIQUE: (All elements of maximal sterile barrier technique followed, including US elements as applicable) The risks, benefits, and alternatives to the procedure were explained to patient, and the patient agreed to the procedure and signed a consent form for the procedure. A timeout was performed to confirm the patient''s identity, the type of procedure, to be performed and the site of entry. Under fluoroscopic guidance, a left-sided radiofrequency ablation performed from L4 to S1, no complications noted. RAD/Lumbar Spine 2 or 3 Views IMPRESSION: No complications noted during left-sided L4-S1 radiofrequency ablation Electronically Signed: Alf Domingo MD at 11:10 EST ,
[2024-09-25] MEDS: Lidocaine 1% (30 ml sdv) 30 ML Vial (09:05)
[2024-09-25] MEDS: MethylPREDNISolone Acetate 40 MG/ML Vial (09:05)
[2024-09-25] MEDS: Bupivacaine 0.25% 30 ML Vial (09:05)
--- NOTE | 2024-09-25 09:20 | PCM.OPRPT ---
Operative Report (Standard) Operative Information Date of Procedure: 09/25/24 Pre-Operative Diagnosis: 1 Post-Operative Diagnosis: 1 Surgery/Procedure Performed: 1 director of consumer marketing: No Type of Anesthesia: MAC and Topical Anesth RN Documented Start/Stop Times: Operation Date: 09/25/24 08:30 Case Time Into Pre-Op 09/25/24 06:59 Anesthesia Start 09/25/24 08:55 Into Room 09/25/24 08:55 Out of Pre-Op 09/25/24 08:55 Procedure Start 09/25/24 09:04 Procedure End 09/25/24 09:14 Anesthesia End 09/25/24 09:17 Out of Room 09/25/24 09:17 Procedure Start Time: 09:20 Procedure Stop Time: 09:20 Select all DRAINS/GRAFTS/IMPLANTS that apply: None Estimated Blood Loss: 1 Specimen collected: No Description of surgery: Pre-Operative Diagnosis: Lumbosacral spondylosis, lumbosacral degenerative disc disease, lumbar facet arthropathy Post-Operative Diagnosis: Lumbosacral spondylosis, lumbosacral degenerative disc disease, lumbar facet arthropathy Surgery/Procedure Performed:: Left-sided lumbar radiofrequency ablation of the medial branch L4, L5, S1 Type of Anesthesia: MAC Estimated Blood Loss (mL): Minimal Description of Procedure: History and physical today was reviewed. Risks and benefits of procedure explained. The patient understood, agreed to the procedure and informed consent was obtained. IV inserted per routine protocol. The patient was taken to the operating room, placed in the prone position with a pillow positioned underneath the abdomen. The left side of the lower back was prepped and draped in a sterile fashion using iodine x 3. Under fluoroscopy guidance, on an oblique view, the L3 through S1 vertebral bodies were visualized. The skin and subcutaneous tissue was anesthetized with approximately 10 mL of 1% lidocaine using a 25-gauge regular needle. Under direct visualization with fluoroscopy at approximately 25-degree angle, starting on the left L3, ending on the left S1 passing through the L4-L5 using a 20-gauge 15 cm with a 10 mm curved active tip radiofrequency ablation needle the needle passed through the skin. The tip of the needle was maneuvered and directed towards the superior and medial gutter of the transverse process at the vicinity of the medial branch. Once the tip of the needle was in contact with the bone, the needle pulled approximately 2 mm up the bone. The stylet of each needle was then removed. After negative aspiration of blood with CSF and confirmation of AP as well as oblique view, radiofrequency ablation probe was then inserted at each level. Impedance was then recorded at L3 to be 291, at L4 272, at L5 330, at S1 498 ohm. Motor-evoked potential was then initiated to 1.5 volt without any motor response at each corresponding level. The probe was then removed intact and a total of 6 mL preservative-free 1% lidocaine was injected in divided doses between those 4 levels after negative aspiration of blood with CSF. The radiofrequency ablation probe was then reinserted after confirmation of AP, oblique as well as lateral view. Radiofrequency ablation was then initiated to 80 degrees Celsius for 90 seconds at each level. Once concluded, the probe was then removed intact and a total of 6 mL of preservative-free 0.25% Marcaine with 40 mg Depo-Medrol was injected in divided doses between those 4 levels. The needles were then removed intact. The patient experienced no signs or symptoms of intrathecal, intravascular injection. The patient experienced no paraesthesia. The procedure was completed without any apparent difficulty, any complication. The patient appeared to tolerate well. Sensory as well as motor exam was unchanged from prior to procedure. ASSESSMENT AND PLAN: This is a 74-year-old female with lumbosacral spondylosis, lumbosacral degenerative disc disease, lumbar facet arthropathy, status post left-sided lumbar radiofrequency ablation of the medial branch L4 through S1. The patient will continue her current medications. The patient will follow up in approximately 2 weeks for reevaluation. Surgical Findings: 1 Complications Complications: No Admit VTE Documentation VTE Present on Admission: No VTE Mechan Device Prophylaxis: None
--- NOTE | 2024-09-25 10:22 | PCM.POST.ANE ---
Anesthesia: Postop Eval I Current Vital Signs Temperature: 98.3 F Pulse Rate: 56 Blood Pressure: 125/68 Respiratory Rate: 17 Pulse Ox: 94 Oxygen Delivery Method: Room Air Assessment Airway patent: Yes Spontaneous unlabored respirations: Yes Mental status: Awake and Calm nausea: No Vomiting: No Anesthesia Complication: No Fluid Hydration Crystalloid volume administer (ml): 30 Total IV fluid infused: 30 Progress Note Anesthesia document: Postop Eval 1 completed: Yes
--- NOTE | 2024-09-25 10:41 | POSTOPAN2_ITS ---
Anesthesia Postop Eval I Sum Postop Eval Completion status Anesthesia document: Postop Eval 1 completed: Yes Anesthesia Postop Eval I Summary Anesthesia Postop Eval I Summary: Anesthesia Postop Eval I: Assessment Summary Airway patent Yes 09/25/24 10:23 CLEANING MACHINE OPERATOR.[email or web address] Spontaneous unlabored Yes 09/25/24 10:23 CLEANING MACHINE OPERATOR.[email or web address] respirations Mental status Awake,Calm 09/25/24 10:23 CLEANING MACHINE OPERATOR.[email or web address] nausea No 09/25/24 10:23 CLEANING MACHINE OPERATOR.[email or web address] Vomiting No 09/25/24 10:23 CLEANING MACHINE OPERATOR.[email or web address] Anesthesia Postop Eval I: Fluid Summary Crystalloid volume administer 30 09/25/24 10:23 CLEANING MACHINE OPERATOR.[email or web address] (ml) Colloids volume administered ( ml) Blood Product volume administered (ml) Total IV fluid infused 30 09/25/24 10:23 CLEANING MACHINE OPERATOR.[email or web address] Anesthesia Postop Eval I: Summary Notes Anesthesia Complication No 09/25/24 10:23 CLEANING MACHINE OPERATOR.[email or web address] Anesthesia Complication Comment: Post-operative progress note Anesthesia: Postop Eval II Evaluation Mental status: Awake Pain Level: 0 nausea: No Vomiting: No
--- NOTE | 2024-09-25 10:41 | PCM.POSTANE2 ---
Anesthesia Postop Eval I Sum Postop Eval Completion status Anesthesia document: Postop Eval 1 completed: Yes Anesthesia Postop Eval I Summary Anesthesia Postop Eval I Summary: Anesthesia Postop Eval I: Assessment Summary Airway patent Yes 09/25/24 10:23 CUTTER [email or web address] Spontaneous unlabored Yes 09/25/24 10:23 CUTTER [email or web address].[email or web address] respirations Mental status Awake,Calm 09/25/24 10:23 CUTTER [email or web address].[email or web address] nausea No 09/25/24 10:23 CUTTER FINISHER.[email or web address] Vomiting No 09/25/24 10:23 CUTTER [email or web address].[email or web address] Anesthesia Postop Eval I: Fluid Summary Crystalloid volume administer 30 09/25/24 10:23 CUTTER [email or web address] (ml) Colloids volume administered ( ml) Blood Product volume administered (ml) Total IV fluid infused 30 09/25/24 10:23 CUTTER [email or web address].[email or web address] Anesthesia Postop Eval I: Summary Notes Anesthesia Complication No 09/25/24 10:23 CUTTER FINISHER.[email or web address] Anesthesia Complication Comment: Post-operative progress note Anesthesia: Postop Eval II Evaluation Mental status: Awake Pain Level: 0 nausea: No Vomiting: No
== END 2024-09-25 10:06 | disposition home or self-care (01) ==
LOC: SDC 06:51 → AC 06:52
PROVIDERS: PCP Internal Medicine; Referring Provider Anesthesiology Pain Medicine; Visit Provider Anesthesiology Pain Medicine
PROC: (CPT 64635; principal; 2024-09-25 08:25)
DX: M51.370 Other intervertebral disc degeneration, lumbosacral region with discogenic back pain only (principal); G20.A1 Parkinson's disease without dyskinesia, without mention of fluctuations; M47.816 Spondylosis without myelopathy or radiculopathy, lumbar region; M47.817 Spondylosis without myelopathy or radiculopathy, lumbosacral region; G47.33 Obstructive sleep apnea (adult) (pediatric); D86.0 Sarcoidosis of lung; E78.00 Pure hypercholesterolemia, unspecified; K21.9 Gastro-esophageal reflux disease without esophagitis; Z79.82 Long term (current) use of aspirin; Z79.899 Other long term (current) drug therapy
CPT/HCPCS: 64635; 64636; 01992; 72100; 76000; A4216

== ENCOUNTER 2024-11-13 12:18 | Outpatient (CLI) | payer MEDICARE, SELFPAY ==
[2024-11-13] MEDS: 0.9% NaCl Peripheral Flush Adult/Peds IV (12:51)
[2024-11-13] MEDS: Zoledronic Acid 5 MG 100 ML 300 MG IV (12:51)
[2024-11-13] MEDS: 0.9% Normal Saline (100mL Bag) 100 ML 15 ML IV (12:51)
[2024-11-13 12:56] VITALS: BP 124/75; PULSE 56; RESP 16; TEMP 35.9; O2SAT 97; BMI 35.7
[2024-11-13 13:26] VITALS: BP 111/59; PULSE 59; RESP 16
== END 2024-11-13 23:59 | disposition home or self-care (01) ==
LOC: MEDOUTP 12:19
PROVIDERS: PCP Internal Medicine; Referring Provider Internal Medicine; Visit Provider Internal Medicine
DX: M81.0 Age-related osteoporosis without current pathological fracture (principal)
CPT/HCPCS: 96365; A4216; J3489

== ENCOUNTER → 2024-11-13 | Outpatient (CLI) | payer MEDICARE, SELFPAY ==
--- NOTE | 2024-11-13 11:51 | BI_ITS ---
PROCEDURE: SCRN MAMM (CAD)W/OLIVER BILAT REASON FOR EXAM: F, Age 74 y/o, sisters with breast cancer. Remote left excisional breast biopsy. Annual follow-up. TECHNIQUE: Bilateral screening digital breast tomosynthesis with 2D and 3D images. Computer aided detection. COMPARISON: Prior exam(s) dating back to November 10, 2023.. FINDINGS: The breasts are heterogeneously dense which may obscure small masses. Stable examination. No suspicious masses, areas of developing architectural distortion, or suspicious calcifications. BI/SCRN MAMM (CAD)W/OLIVER BILAT IMPRESSION: BI-RADS 1: NEGATIVE. RECOMMEND ANNUAL MAMMOGRAPHIC SCREENING. Follow-up code: Routine Follow-up The patient will be notified of the results by letter. Reading Location: [id number]
== END | disposition home or self-care (01) ==
LOC: OPBI 11:50
PROVIDERS: PCP Internal Medicine; Referring Provider Internal Medicine; Visit Provider Internal Medicine
DX: Z12.31 Encounter for screening mammogram for malignant neoplasm of breast (principal)
CPT/HCPCS: 77063; 77067

== ENCOUNTER 2024-12-05 12:00 | Outpatient (RCR) | payer MEDICARE, SELFPAY ==
--- NOTE | 2024-10-25 13:53 | HP.PTEVAL ---
Patient's Visit Information Visit Information Visit Information: SHANTANU BOWIE is a 74 year old F referred to Physical Therapy by Dr. Mercy Bryant MD with a diagnosis of L sciatica and leg weakness and PD. Date of Evaluation: 10/25/24 Physical Therapist: JUSTINA Tipton Visit Plan Frequency: 2x /Week Duration: 2 Months Plan: Pt is very unsteady. Gait belt at all times 2X/ week for 8 weeks for LE strength, gait training, sit to stands, stair negotiation, core stability HEP: pelvic tilt to add to already doing bridges and LTR at home Subjective Subjective: Pt had 2 sisters in March and one had an CT and then a week later her other sister needed her who has CA. 09-12 her sister and Oct 01 her other sister and she was not exercising. She has back pain that comes and goes. Dr Lopes did the burning of the nerves but she is still having some trouble with it (it was done first part of Sep). Dr Bryant sent her here to get moving again. Currently her major issues are weakness in the legs (randall the L) and she wants to do better getting out of a chair because she has to use the rails and walking longer. She has a rollator at home. She fell when she stepped on her shoe and fell in the kitchen and did not hurt anything. Pain Back pain: Pain Intensity (Out of 10): 2 Objective Objective: LE MMT: R hip 14.1 and L 11.8 R knee ext 22.9 and L 21.7 R knee flex 6.1 and L 11.6 Good bridge sit to stand: able to stand up using her arms but she did fall back into the chair due to poor immed standing balance FGA: 5 stairs: Pt able to go up the steps using B handrails recip but pulls self up the steps with her arms Heel and toe raises: unable to raise heels or toes Discussed with pt the need for an AD as her FGA score is extremely low Balance/Special Test Scores Functional Gait Assessment Score: 5 % Disability: 83.3400 Lower Extremity Functional Score: 44 Goals Goal 1:: I HEP Goal Time Frame: 8-12 Weeks Goal 2:: Increase balance (score of FGA at time of the eval was 5) Goal Time Frame: 8-12 Weeks Goal 3:: Increase LE strength (at the time of the eval: R hip 14.1 and L 11.8 R knee ext 22.9 and L 21.7 R knee flex 6.1 and L 11.6) Goal Time Frame: 8-12 Weeks Rehabilitation Potential Rehabilitation Potential: Good Anticipated Interventions Patient/Client Instruction: Educate patient on: Condition and Plan of Care For the Purpose of:: To decrease pain, To increase ROM, To improve nutrient delivery to tissue, To improve muscle performance and motor function, To improve ability to perform ADL's, To increase tolerance to activity/condition/position, To improve performance and independence with ADL's, To decrease level of supervision to perform tasks, To improve ability of physical actions for home/community/work/leisure, To improve gait and locomotor functions, To improve health of tissue, To decrease soft tissue restriction, To increase flexibility/ROM and To improve endurance Therapeutic Exercise to Include: Strength training, Endurance training, Balance training, Postural training, Flexibilty training, Gait and locomotor training and Dynamic Lumbar Stabilization For the Purpose of:: To decrease pain, To increase ROM, To improve nutrient delivery to tissue, To increase oxygenation perfusion, To improve ability to perform ADL's, To increase tolerance to activity/condition/position, To improve performance and independence with ADL's, To decrease level of supervision to perform tasks, To improve ability of physical actions for home/community/work/leisure, To improve gait and locomotor functions, To improve health of tissue, To decrease soft tissue restriction, To improve endurance, To improve balance and To improve safety with gait Functional Training to Include: Gait training For the Purpose of:: To improve gait and locomotor functions Text: Thank you for the opportunity to evaluate your patient. For Medicare and Medicare HMO plans, please review the plan of care and approve it. It will need to be FAXED BACK to us at [phone] for Medicare purposes. For Medicare only, by signing this I certify the plan of care. Please let me know if there are questions or concerns regarding this plan of care. Physician Signature: Date:
--- NOTE | 2024-12-05 13:16 | HP.PTDCSUM ---
Discharge Summary D/C summary: It has been my pleasure to treat SHANTANU BOWIE referred by Dr. Mercy Bryant MD, with the diagnosis of L sciatica and leg weakness and PD for a total of 11 visit(s). Discharge Date: 12/05/24 Please see the following information for a summary of their discharge status. Subjective Subjective: Pt reports that Dr QuesadaMoses wants an X-ray and she is going to do that after today. Pain Back pain: Pain Intensity (Out of 10): 1 Overall Improvement % Improvement: 45 Objective Objective/Function: Pt had good understanding of set up of Goals Goal 1:: I HEP Goal Progress: Goal Met Goal 2:: Increase balance (score of FGA at time of the eval was 5) Goal Progress: Not Progressing Goal 3:: Increase LE strength (at the time of the eval: R hip 14.1 and L 11.8 R knee ext 22.9 and L 21.7 R knee flex 6.1 and L 11.6) Goal Progress: Progressing Plan Plan: DC PT to PD class, HEP, and gym routine D/C Information Discharge Comments: DC PT d/c sentence: If there are questions or concerns regarding this patient's physical therapy, please feel free to call me at [phone]. Thank you for the referral of this patient. Sincerely, Betty Garcia, MPT Balance/Gait/Functional tests Balance/Special Test Scores Functional Gait Assessment Score: 5 % Disability: 83.3400 Lower Extremity Functional Score: 44 Improvement % Improvement: 45
== END 2024-12-05 14:47 | disposition home or self-care (01) ==
LOC: PT 12:00
PROVIDERS: PCP Internal Medicine; Referring Provider Internal Medicine; Visit Provider Internal Medicine
DX: M54.32 Sciatica, left side (principal); R29.898 Other symptoms and signs involving the musculoskeletal system; G20.A1 Parkinson's disease without dyskinesia, without mention of fluctuations
CPT/HCPCS: 97110; 97162; 97530

== ENCOUNTER → 2024-12-05 | Outpatient (CLI) | payer MEDICARE, SELFPAY ==
--- NOTE | 2024-12-05 12:47 | RAD_ITS ---
PROCEDURE: L/S SPINE W BEND MIN 6 VW ([id number]), 12/05/2024 REASON FOR EXAM: PAIN TECHNIQUE: AP, lateral, bilateral oblique, and lateral flexion and extension views of the lumbar spine were obtained. COMPARISON: None FINDINGS: Exam limited by marked demineralization and soft tissue attenuation, limiting fine bony detail. Fracture/dislocation: None visible. Vertebral body heights: Preserved. Alignment: Grade 1 anterolisthesis at L4-L5 and L5-S1. Disc spaces: Suggestion of severe disc height loss at L5-S1, difficult to visualize given marked demineralization. Disc height loss is otherwise mild/moderate and greatest in the imaged lower thoracic spine. Facets: Facet arthropathy greatest from L3-S1. Soft tissues: Presumed pelvic phleboliths.. Foreign bodies: None visible. Bone mineralization: Marked demineralization. RAD/L/S Spine w Bend Min 6 Vw IMPRESSION: 1. Marked demineralization without visible acute displaced fracture, noting yessy t demineralization limits sensitivity. 2. Multilevel spondylosis and additional description as above. Reading Location: [id number]
== END | disposition home or self-care (01) ==
LOC: MTRAD 12:46
PROVIDERS: PCP Internal Medicine; Referring Provider Anesthesiology Pain Medicine; Visit Provider Anesthesiology Pain Medicine
DX: M48.062 Spinal stenosis, lumbar region with neurogenic claudication (principal)
CPT/HCPCS: 72114

== ENCOUNTER → 2025-01-16 | Outpatient (CLI) | payer MEDICARE, SELFPAY ==
--- NOTE | 2025-01-16 14:36 | RAD_ITS ---
PROCEDURE: CHEST PA AND LATERAL 01/16/2025 REASON FOR EXAM: XR CHEST, 2 VIEWS TECHNIQUE: Frontal and lateral views of the chest. COMPARISON: 09/21/2024 FINDINGS: Hardware: Status post anterior cervical discectomy and fusion of the lower cervical spine. Heart: The heart size is normal. Mediastinum: The thoracic aorta is tortuous and calcified. Lungs: The lungs are clear. Bones: The bones are unremarkable. RAD/Chest PA and Lateral IMPRESSION: NO ACUTE FINDINGS. Reading Location: [id number]
[2025-01-16 18:03] LABS: Absolute Lymphocyte Count 1.43 X10^3/uL (0.83-4.51); Absolute Neutrophil Count 3.2 X10^3/uL (2.0-7.7); Basophil# 0.02 X10^3/uL; Basophil% 0.4 % (0-1); Eosinophil# 0.12 X10^3/uL; Eosinophils% 2.2 % (0-5); Hematocrit 38.9 % (37-47); Hemoglobin 12.8 g/dL (12.0-15.0); Lymphocyte # 1.43 X10^3/ul (0.83-4.51); Lymphocyte % 26.6 % (19-41); Mean Corp Hgb Conc 32.9 g/dL (32-36); Mean Corpuscular Hgb 31.2 pg (27.0-32.0); Mean Corpuscular Volume 94.9 fL (81-99); Mean Platelet Vol. 10.3 fl (6.2-12.0); Monocyte# 0.57 X10^3/uL; Monocyte% 10.6 % (0-10); NRBC Flagged by Analyzer 0 % (0-5); Neutrophil # 3.23 X10^3/uL (2.7-7.7); Platelet Count 229 K/mm3 (150-450); RBC Distribution Width CV 12.6 % (11.6-14.6); RBC Distribution Width SD 43.8 fl (35.1-43.9); White Blood Count 5.4 K/mm3 (4.4-11.0)
[2025-01-16 18:24] LABS: ALB/GLOB Ratio 1.9 RATIO (0.9-2.4); AST(SGOT) 30 U/L (<=31); Alanine Aminotransfer ALT/SGPT 24 U/L (<=34); Albumin, Serum 4.1 g/dL (3.4-4.8); Alkaline Phosphatase 54 U/L (35-104); Anion Gap 11 (5-15); BUN 18 mg/dL (4-19); BUN/Creat Ratio 23.6 RATIO (10-20); Carbon Dioxide 22.8 mmol/L (21.0-32.0); Chloride 106 mmol/L (98-108); Creatinine, Serum 0.74 mg/dL (0.70-1.20); EST Glomerular Filtration Rate 85 (>60); Globulin 2.2 g/dL (2.2-4.2); Glucose 99 mg/dL (70-99); Potassium 4.4 mmol/L (3.3-5.1); Protein, Total 6.3 g/dL (5.9-8.4); Sodium Level 140 mmol/L (133-145)
[2025-01-16 18:47] LABS: CPK Total, Creatine Kinase 271 U/L (24-195); Troponin T High Sensitivity 20 ng/L (<=14)
== END | disposition home or self-care (01) ==
LOC: MTLAB 14:36
PROVIDERS: PCP Internal Medicine; Referring Provider Internal Medicine; Visit Provider Internal Medicine
DX: R07.9 Chest pain, unspecified (principal); I25.10 Atherosclerotic heart disease of native coronary artery without angina pectoris
CPT/HCPCS: 36415; 71046; 80053; 82550; 84484; 85025

== ENCOUNTER 2025-01-17 09:54 | Emergency (ER) | payer MEDICARE, SELFPAY ==
[2025-01-17] VITALS (17 sets, daily range): BP systolic 104–126; BP diastolic 62–74; PULSE 51–59; RESP 13–21; TEMP 36.7–37; O2SAT 94–98; BMI 34.9
--- NOTE | 2025-01-17 10:19 | EKG12_ITS ---
Test Reason : CP Blood Pressure : */* mmHG Vent. Rate : 61 BPM Atrial Rate : 61 BPM P-R Int : 176 ms QRS Dur : 92 ms QT Int : 426 ms P-R-T Axes : 23 -42 11 degrees QTcB Int : 428 ms Normal sinus rhythm Left axis deviation Moderate voltage criteria for LVH, may be normal variant ( R in aVL , [place] product ) Cannot rule out Anterior infarct , age undetermined Abnormal ECG Confirmed by SAIDA WHEAT, ZORAN ([id number]), map editor CAESAR KENDRICK ([id number]) on 01/18/2025 1:25:11 PM Referred By: Confirmed By: ZORAN CINTRON MD
--- NOTE | 2025-01-17 10:29 | RAD_ITS ---
PROCEDURE: CHEST PA AND LATERAL 01/17/2025 REASON FOR EXAM: CHEST PAIN TECHNIQUE: Frontal and lateral views of the chest. COMPARISON: September 21, 2024, January 16, 2025 FINDINGS: Heart size is within normal limits. Central vascularity appears normal. There is no focal infiltrate or consolidation. There is no pneumothorax or effusion. Aortic calcifications are visible. Midthoracic compression deformities are noted, unchanged from the prior. There is no acute bony abnormality. Hardware is noted in the cervical spine. RAD/Chest PA and Lateral IMPRESSION: No acute process is identified in the chest. Reading Location: [facility]
[2025-01-17 10:32] LABS: Absolute Lymphocyte Count 1.39 X10^3/uL (0.83-4.51); Absolute Neutrophil Count 4.6 X10^3/uL (2.0-7.7); Basophil# 0.03 X10^3/uL; Basophil% 0.4 % (0-1); Eosinophil# 0.16 X10^3/uL; Eosinophils% 2.4 % (0-5); Hematocrit 39.7 % (37-47); Lymphocyte # 1.39 X10^3/ul (0.83-4.51); Lymphocyte % 20.5 % (19-41); Mean Corp Hgb Conc 32.7 g/dL (32-36); Mean Corpuscular Hgb 31.3 pg (27.0-32.0); Mean Corpuscular Volume 95.7 fL (81-99); Mean Platelet Vol. 9.7 fl (6.2-12.0); Monocyte# 0.62 X10^3/uL; Monocyte% 9.2 % (0-10); NRBC Flagged by Analyzer 0 % (0-5); Neutrophil # 4.55 X10^3/uL (2.7-7.7); Neutrophil % 67.2 % (47-70); Platelet Count 217 K/mm3 (150-450); RBC Distribution Width CV 12.7 % (11.6-14.6); RBC Distribution Width SD 44.8 fl (35.1-43.9); Red Blood Count 4.15 M/mm3 (4.2-5.4); White Blood Count 6.8 K/mm3 (4.4-11.0)
--- NOTE | 2025-01-17 10:32 | ED.VIS.CHEST ---
HPI History of Present Illness Chief Complaint: Chest Pain Narrative Narrative: Chief complaint and HPI: Episodic chest pain. 74-year-old female with past medical history of Parkinson's disease, immunoglobulin deficiency neuropathy, HLD presents for evaluation of episodic chest pain. Patient states for several weeks she has been having episodic chest pain. She states that she recently had 3 family members in which she has been under a lot of stress. She states she had a routine checkup at her [facility] yesterday in which she told the physician about her intermittent chest pain. She states she performed the labs and was told that she needs to present to the emergency department for concern of possible heart attack. She denies any chest pain currently. Chest pain is random not specifically with exertion. Occasional shortness of breath associated with the chest pain. Does not radiate down the arm or into the jaw. Denies any fever, chills, URI symptoms, abdominal pain, nausea, vomiting. Review of systems: See HPI Medications: As listed on the chart Allergies: As listed on the chart PFSH: Per chart Vital signs: As listed on the chart. Reviewed. Physical exam: Gen: A&O x3, NAD Head: Normocephalic, atraumatic Eyes: No sclera icterus, conjunctiva clear ENT: Moist mucous membranes Neck: Trachea midline, No JVD CV: RRR, no murmurs, no peripheral edema Resp: Lungs CTA BL, no w/r/c GI: Abd soft, non-distended, non-tender, no r/r/g Musc: Full ROM, no deformity Skin: Warm, dry Neuro: Alert, oriented, grossly intact, sensation intact Psych: Cooperative, appropriate mood and affect [facility] Medical History Ambulates with cane History of irregular heartbeat History of steroid therapy Hypergammaglobulinemia Diarrhea Immunoglobulin deficiency Hiatal hernia Central hearing loss Migraine Memory loss Neoplasm of uncertain behavior of skin History of colitis Postmenopausal Bilateral foot-drop Bradycardia Tremor Abnormal lung sounds Sleep disturbance Irritable bowel syndrome Urge incontinence Esophageal stricture Hypercholesteremia Closed Colles' fracture of right radius Vitamin B 12 deficiency Carotid stenosis BMI 35.0-35.9,adult Non-smoker Allergic rhinitis, seasonal Esophageal diverticulum Vitamin D deficiency Epicondylitis, lateral, right Mild major depression Coronary artery disease Osteoporosis Polyneuropathy Hypogammaglobulinemia Mild obstructive sleep apnea Degeneration of cervical intervertebral disc Wears hearing aid Wears glasses Anxiety Alcohol use Arthritis Bladder disease Restless legs Injury of head and neck Back pain Parkinson's disease Difficulty swallowing History of IBS Gastric reflux Asthma Shortness of breath on exertion Leg cramps History of edema History of echocardiogram History of stress test Cardiology follow-up encounter Dysphagia Chronic hoarseness Fibromyalgia Pure hypercholesterolemia Ectopic atrial beats Bilateral carotid artery stenosis Pulmonary sarcoidosis GERD (gastroesophageal reflux disease) TERESO (obstructive sleep apnea) Vocal cord paralysis Home Medications ?Medication ?Instructions ?Recorded ?Last Taken ?Type aspirin 81 mg chewable tablet 81 mg PO QHS 04/03/15 01/17/25 History atorvastatin 10 mg tablet 10 mg PO QHS 04/03/15 01/16/25 History citalopram 20 mg tablet 20 mg PO DAILY 04/03/15 01/17/25 History folic acid 1 mg tablet 1 mg PO BIDCM 04/03/15 01/17/25 History albuterol sulfate 90 mcg/actuation 1 - 2 puff inhalation Q6H PRN 11/04/18 09/25/24 History aerosol inhaler Asthma multivitamin with folic acid 400 1 tab PO DAILY 11/04/18 01/17/25 History mcg tablet propranolol 10 mg tablet 10 mg PO BID 12/11/19 01/17/25 History magnesium oxide 400 mg PO DAILY 06/13/20 01/16/25 History famotidine 20 mg tablet (Pepcid) 20 mg PO DAILY GERD 02/06/21 01/16/25 History sumatriptan succinate 100 mg tablet 100 mg PO PRN PRN migraine headache 02/06/21 08/12/24 History tizanidine 2 mg tablet 2 mg PO QHS PRN Spasms 02/07/21 09/24/24 History carbidopa 25 mg-levodopa 100 mg 1 tab PO 4X/DAY 10/03/21 01/17/25 History tablet Lactobacillus acidophilus 250 500 mmu cells PO DAILY 08/10/24 01/17/25 History million cell capsule (Probiotic Acidophilus) calcium 600 mg (as 1 tab PO DAILY 08/10/24 01/16/25 History carbonate)-vitamin D3 10 mcg (400 unit) tablet (Calcium 600 + D(3)) melatonin 10 mg capsule 10 mg PO QHS PRN sleep 08/10/24 09/24/24 History omeprazole 40 mg capsule,delayed 40 mg PO DAILY 08/10/24 01/17/25 History release turmeric 400 mg capsule 400 mg PO DAILY 08/10/24 01/17/25 History biotin 5 mg capsule 5 mg PO DAILY 01/17/25 01/17/25 History coenzyme Q10 200 mg capsule (Co 200 mg PO DAILY 01/17/25 01/16/25 History Q-10) Allergy/AdvReac Type Severity Reaction Status Date / Time celecoxib (From Celebrex) Allergy Unknown Verified 11/13/24 12:46 meperidine HCl (From Demerol) Allergy Unknown Verified 11/13/24 12:46 metoclopramide HCl (From Allergy Unknown Verified 11/13/24 12:46 Reglan) suture Allergy NEEDS Verified 11/13/24 12:46 FOLLOW-UP Family History Mother CHF (congestive heart failure) Sister CHF (congestive heart failure) Sister CAD (coronary artery disease) Myocardial infarction Presence of permanent cardiac pacemaker Aortic stenosis, severe Surgical History vocal cord surgery History of left heart catheterization (LHC) (~04/04/15) History of left breast biopsy History of Dorie fundoplication History of repair of hiatal hernia History of laminectomy History of fusion of cervical spine Social History household members: spouse and family Smoking Status: Never smoker alcohol intake: current details: occasional substance use type: does not use diet: other caffeine: Yes (occasional) what type of physical activity do you participate in: walking frequency: 3-4 times per week EXAM Physical Exam Const Vital Signs: 01/17/25 09:54 01/17/25 10:19 01/17/25 10:54 Temperature 98.6 F Temperature Source Oral Pulse Rate 57 L 57 L Respiratory Rate 16 19 H Blood Pressure 124/70 H 109/62 Blood Pressure Mean 88 77 Pulse Ox 96 95 Oxygen Delivery Method Room Air Room Air 01/17/25 11:01 01/17/25 11:15 01/17/25 11:30 Temperature Temperature Source Pulse Rate 56 L 54 L 51 L Respiratory Rate 18 21 H 19 H Blood Pressure 113/67 107/64 116/68 Blood Pressure Mean 82 77 83 Pulse Ox Oxygen Delivery Method 01/17/25 11:45 01/17/25 12:00 01/17/25 12:15 Temperature Temperature Source Pulse Rate Respiratory Rate Blood Pressure 117/73 115/62 104/63 Blood Pressure Mean 85 78 76 Pulse Ox Oxygen Delivery Method 01/17/25 12:16 01/17/25 12:30 01/17/25 12:45 Temperature Temperature Source Pulse Rate 54 L 57 L 57 L Respiratory Rate 13 18 15 Blood Pressure 126/71 H 118/74 Blood Pressure Mean 88 87 Pulse Ox 98 95 Oxygen Delivery Method 01/17/25 13:00 01/17/25 13:15 01/17/25 13:30 Temperature Temperature Source Pulse Rate 59 L Respiratory Rate 14 Blood Pressure 125/69 H 117/68 124/68 H Blood Pressure Mean 85 81 83 Pulse Ox 97 Oxygen Delivery Method 01/17/25 13:45 01/17/25 14:00 01/17/25 14:08 Temperature 98.1 F Temperature Source Pulse Rate 56 L 58 L 58 L Respiratory Rate 15 17 17 Blood Pressure 126/71 H 126/66 H 126/66 H Blood Pressure Mean 88 84 86 Pulse Ox 94 95 95 Oxygen Delivery Method MDM MDM MDM Narrative Medical decision making narrative: 74-year-old female with past medical history of Parkinson's disease, immunoglobulin deficiency neuropathy, HLD presents for evaluation of episodic chest pain. Ongoing for several weeks. Had outpatient laboratory workup and referred to the emergency department for concern of possible heart attack. Denies chest pain currently. Denies history of tobacco abuse. On chart review, patient has seen cardiology in the past, February. Plan was to reevaluate carotids with an ultrasound in 4 years due to bilateral carotid artery stenosis. Her last echocardiogram was in 2022 which showed an EF of 65%. Her last stress test was in 2019 that was unremarkable. She had a heart catheterization in 2014 that was unremarkable. Differential diagnosis includes but is not limited to unstable angina, NSTEMI, electrolyte abnormality, low suspicion for PE. Patient currently not having chest pain therefore aspirin ordered. Cardiac workup ordered. Patient was sent to the emergency department by Dr. Bryant. Her troponin was 20. CBC without leukocytosis or anemia. Coagulation panel unremarkable. D-dimer unremarkable. BMP unremarkable. BMP relatively unremarkable. Patient's troponin is 23. This is up from 01/16 at 20. Will repeat another troponin here. Repeat troponin 21. Patient's troponins are flat. However given her risk factors, she has a moderate heart score of 6. Patient would benefit from stress test. I spoke with the hospital service, Dr. Horton. Given that patient follows with cardiology, he recommends reaching out to them prior to admission. I tried to get a hold of Dr. Khalil however he is not in the office today therefore I spoke to the on-call physician, Dr. Davis. Plan will be to follow-up outpatient in their office for outpatient workup. No need for admission for stress test at this time. Patient was updated of all the results and confirmed understanding of plan. She is in agreement. Return precautions explained. EKG: Interpreted by me/EM physician: EKG shows normal sinus rhythm. No ST elevation. Heart rate 61. Patient has a known left anterior fascicular block. Diagnostic: Interpreted by me/EM physician: Chest x-ray without pneumonia, effusion, cardiomegaly, pneumothorax. Patient does have chronic vascular changes. Impression: 1. Episodic chest pain, chronic 2. Minimally elevated troponins Lab Data Labs: Laboratory Results - last 24 hr 01/17/25 01/17/25 10:21 12:21 WBC 6.8 RBC 4.15 L Hgb 13.0 Hct 39.7 MCV 95.7 MCH 31.3 MCHC 32.7 RDW Std Deviation 44.8 H RDW Coeff of Neva 12.7 Plt Count 217 MPV 9.7 Immature Gran % (Auto) 0.300 Neut % (Auto) 67.2 Lymph % (Auto) 20.5 [place] % (Auto) 9.2 Eos % (Auto) 2.4 Baso % (Auto) 0.4 Absolute Neuts (auto) 4.6 Absolute Lymphs (auto) 1.39 Nucleated RBC % 0 PT 12.4 INR 0.9 APTT 24.8 D-Dimer Quant (PE/DVT) 0.29 Sodium 141 Potassium 4.4 Chloride 108 Carbon Dioxide 22.2 Anion Gap 11 BUN 21 H Creatinine 0.85 Estim Creat Clear Calc 66.33 Est GFR (MDRD) Non-Af 72 BUN/Creatinine Ratio 24.3 H Glucose 130 H Calcium 8.9 Troponin T High Sens 23 H D Troponin T Hi Sens 2 Hr 21 H NT pro BNP II 114 Radiography Diagnostic Testing: Clinical Impression(s) from Imaging Studies Chest X-Ray 01/17/25 10:29 IMPRESSION: No acute process is identified in the chest. Reading [facility] Dis[facility] Plan Triage Chief Complaint: Chest Pain ED Provider: Donnie Espinosa Dx/Rx/DC Orders Clinical Impression: Chest pain in adult Instructions: Chest Pain [facility] Prescriptions: No Action magnesium oxide 400 mg magnesium tablet 400 mg PO DAILY carbidopa-levodopa 25-100 mg tablet 1 tab PO 4X/DAY atorvastatin 10 MG tablet 10 mg PO QHS citalopram 20 MG tablet 20 mg PO DAILY aspirin 81 MG tablet,chewable 81 mg PO QHS folic acid 1 MG tablet 1 mg PO BIDCM albuterol sulfate 1 INHALER inhaler 1 - 2 puff inhalation Q6H PRN (Reason: Asthma) multivitamin with folic acid 1 TABLET tablet 1 tab PO DAILY coenzyme Q10 [Co Q-10] 200 mg capsule 200 mg PO DAILY biotin 5 mg capsule 5 mg PO DAILY omeprazole 40 mg capsule,delayed release(DR/EC) 40 mg PO DAILY melatonin 10 mg capsule 10 mg PO QHS PRN (Reason: sleep) calcium carbonate-vitamin D3 [Calcium 600 + D(3)] 600 mg-10 mcg (400 unit) tablet 1 tab PO DAILY Probiotic Acidophilus 250 million cell capsule 500 mmu cells PO DAILY turmeric 400 mg capsule 400 mg PO DAILY propranolol 10 mg tablet 10 mg PO BID sumatriptan succinate 100 mg tablet 100 mg PO PRN PRN (Reason: migraine headache) Rx Instructions: take 1 tab at onset of headache; if no relief, may repeat 1 tab after at least 2 hrs; max = 2 tabs/24 hrs PO famotidine [Pepcid] 20 mg tablet 20 mg PO DAILY tizanidine 2 mg tablet 2 mg PO QHS PRN (Reason: Spasms) Primary Care Provider: Mercy Bryant Referrals: Mercy Bryant MD [Primary Care Provider] - 3-5 Days Arsenio Khalil MD [Med Staff - Active Staff] - 3-5 Days Activity Restrictions/Additional Instructions: Follow-up with cardiology. Call to make an appointment as soon as possible. Return back to the ED if symptoms change or worsen. Print Language: Bur[place]ian Disposition Disposition: Home, Self Care Discharge Date/Time: 01/17/25 14:17
[2025-01-17 10:41] LABS: International Normalized Ratio 0.9; Prothrombin Time (Protime)PT. 12.4 SECONDS (11.7-14.9)
[2025-01-17 10:42] LABS: Partial Thromboplast Time 24.8 Seconds (24.1-36.2)
[2025-01-17 10:52] LABS: D-Dimer Quantitative (DVT/PE) 0.29 FEU/ug/m (0.27-0.49)
[2025-01-17 11:23] LABS: Anion Gap 11 (5-15); BUN 21 mg/dL (4-19); BUN/Creat Ratio 24.3 RATIO (10-20); Calcium,Total 8.9 mg/dL (7.6-11.0); Carbon Dioxide 22.2 mmol/L (21.0-32.0); Chloride 108 mmol/L (98-108); Creatinine, Serum 0.85 mg/dL (0.70-1.20); EST Glomerular Filtration Rate 72 (>60); Estimated Creatinine Clearance 66.33 ml/min (50-250); Glucose 130 mg/dL (70-99); Potassium 4.4 mmol/L (3.3-5.1); Pro- Brain NATRIURETIC PEPTIDE 114 pg/mL (<=900); Sodium Level 141 mmol/L (133-145); Troponin T High Sensitivity 23 ng/L (<=14)
[2025-01-17 13:06] LABS: Troponin T High Sens 2 HR 21 ng/L (<=14)
== END 2025-01-17 14:17 | disposition home or self-care (01) ==
PROVIDERS: Emergency Provider Surgery; PCP Internal Medicine; Visit Provider Surgery
DX: R07.9 Chest pain, unspecified (principal); G20.A1 Parkinson's disease without dyskinesia, without mention of fluctuations; R06.02 Shortness of breath; R79.89 Other specified abnormal findings of blood chemistry; G89.29 Other chronic pain; E78.00 Pure hypercholesterolemia, unspecified; I25.10 Atherosclerotic heart disease of native coronary artery without angina pectoris; I65.23 Occlusion and stenosis of bilateral carotid arteries; Z79.82 Long term (current) use of aspirin; Z79.899 Other long term (current) drug therapy
CPT/HCPCS: 71046; 80048; 83880; 84484; 85025; 85379; 85610; 85730; 93005; 99284; A4216

== ENCOUNTER → 2025-01-23 | Outpatient (CLI) | payer MEDICARE, SELFPAY ==
--- NOTE | 2025-01-23 14:15 | STRESSREP_ITS ---
Stress Test Report Date: 01/23/2025 Procedure: Pharmacologic stress nuclear imaging study Indications: Chest pain Consent: Per the patient Procedure: The patient underwent pharmacologic (Regadenoson 0.4mg ) evaluation with a peak heart rate of 71 beats per minute (48%predicted maximal heart rate) and a peak blood pressure of 118/70 mmHg. The baseline ECG demonstrated sinus rhythm. The peak pharmacologic ECG failed to show any ischemic changes. There were no cardiac dysrhythmias pretest, during pharmacologic infusion, or recovery. Patient had chest pain pretest which remained the same during pharmacological infusion and in recovery. The patient was injected with 14.1 millicuries of technetium 99m Cardiolite and subsequently rest SPECT Cardiolite nuclear imaging was obtained in the horizontal long, vertical long, and short axis views. The patient underwent pharmacologic (Regadenoson) evaluation. The patient was injected with 44.3 mil licuries of technetium 99m Cardiolite and subsequently stress SPECT Cardiolite nuclear imaging was obtained in the horizontal long, vertical long, and short axis views. A gated Cardiolite study at peak stress was obtained. The examination was stopped secondary to completion of protocol. Rest and stress SPECT Cardiolite nuclear imaging status post realignment, normalization, and attenuation correction demonstrate mildly reduced perfusion of the apex which is actually better on the post stress images. Likely physiological thinning versus attenuation artifact. There is end systolic thickening and brightening. The gated Cardiolite study demonstrates myocardial thickening and inward wall motion. The reported LVEF is 85%. Impression: 1. Pharmacologic (Regadenoson) evaluation 2. Peak pharmacologic ECG with no ischemic changes. 3. There were no cardiac dysrhythmias pretest, during pharmacologic infusion, or recovery. 5. Mildly reduced perfusion of the apex, appears better on post-rest images, likely attenuation artifact. No reversible ischemia noted. 6. The gated Cardiolite study reports an LVEF of 84%. This note was generated with [employer] software. It may contain incorrect words, spelling, and punctuation that were not noted in checking the note before signing.
== END | disposition home or self-care (01) ==
PROVIDERS: PCP Internal Medicine; Referring Provider Internal Medicine; Visit Provider Internal Medicine
DX: R07.9 Chest pain, unspecified (principal)
CPT/HCPCS: 78452; 93017; A9500; A4216; J2785

== ENCOUNTER → 2025-02-27 | Outpatient (CLI) | payer MEDICARE, SELFPAY ==
--- NOTE | 2025-02-27 08:30 | MRI_ITS ---
PROCEDURE: SPINE LUMBAR (ROUTINE) 02/27/2025 REASON FOR EXAM: LEFT LEG WEAKNESS TECHNIQUE: Multiplanar and multisequence images were obtained without IV contrast administration. COMPARISON: Radiographs on 12/05/2024. FINDINGS: Mild S shaped scoliosis. Moderate diffuse spondylosis. Moderate multilevel degenerative disc disease. There is normal signal intensity from the visualized bone marrow without evidence of replacement or acute fracture. The conus is unremarkable. Exaggerated lumbar lordosis. Evaluation of the individual levels revealed the following: L5-S1: There is grade 1 anterolisthesis measuring 3.2 mm with mild diffuse disc bulge with superimposed broad-based right paracentral/posterolateral disc protrusion measuring 2.7 mm. The spinal canal is not narrowed. There is no evidence of neural foramina narrowing. L4-5: There is grade 1 anterolisthesis measuring 4.7 mm. Moderate diffuse disc bulge. Bilateral facet joint arthropathy. The spinal canal is not narrowed. There is moderate right and mild left neural foramina narrowing. L3-4: There is mild diffuse disc bulge. Well-defined intracanicular synovial cyst measuring 8.3 mm arising from the anteromedial aspect of the left facet joint. Bilateral facet joint arthropathy. The spinal canal is moderately narrowed. There is mild right and moderate left neural foramina narrowing. L2-3: There is mild diffuse disc bulge. The spinal canal is not narrowed. There is minimal right and mild left neural foramina narrowing. L1-2: There is mild diffuse disc bulge. The spinal canal is not narrowed. There is no evidence of neural foramina narrowing. Normal visualized paraspinous soft tissue structures. MRI/Spine Lumbar (Routine) IMPRESSION: Spondylosis. Degenerative disc disease. Reading [facility] [id number]
== END | disposition home or self-care (01) ==
PROVIDERS: PCP Internal Medicine; Referring Provider Anesthesiology Pain Medicine; Visit Provider Anesthesiology Pain Medicine
DX: M54.17 Radiculopathy, lumbosacral region (principal)
CPT/HCPCS: 72148

== ENCOUNTER 2025-03-20 07:36 | Emergency (ER) | payer MEDICARE, SELFPAY ==
[2025-03-20 07:37] VITALS: BP 147/65; PULSE 71; RESP 14; TEMP 36.6; O2SAT 98; BMI 35.0
--- NOTE | 2025-03-20 08:35 | EKG12_ITS ---
Test Reason : CHEST PAIN Blood Pressure : */* mmHG Vent. Rate : 64 BPM Atrial Rate : 64 BPM P-R Int : 178 ms QRS Dur : 92 ms QT Int : 452 ms P-R-T Axes : 80 -37 7 degrees QTcB Int : 466 ms Normal sinus rhythm Left axis deviation Pulmonary disease pattern Moderate voltage criteria for LVH, may be normal variant ( R in aVL , [place] product ) Abnormal ECG Confirmed by SAIDA WHEAT, ZORAN ([id number]), purchasing expeditor CAESAR KENDRICK ([id number]) on 03/21/2025 1:31:05 PM Referred By: Confirmed By: ZORAN CINTRON MD
--- NOTE | 2025-03-20 08:36 | EX.ED.DYSGE1 ---
HPI History of Present Illness Chief Complaint: Nausea/Vomiting Narrative Narrative: 75-year-old female past medical history of hiatal hernia that is floating and esophageal motility disorder presents with nausea and vomiting and esophageal spasming that she has had since yesterday. She states that she sees Dr. Owen with gastroenterology currently. She has taken muscle relaxers without relief. She gets these episodes 2 or 3 times a month where it acts up, and she gets nausea and vomiting and esophageal spasming in her chest. She has vomited multiple times over the last 24 hours but denies any fevers or chills, no cough, no diaphoresis, no diarrhea. No exacerbating or alleviating factors. She took medication without relief. [facility] Medical History Ambulates with cane History of irregular heartbeat History of steroid therapy Hypergammaglobulinemia Diarrhea Immunoglobulin deficiency Hiatal hernia Central hearing loss Migraine Memory loss Neoplasm of uncertain behavior of skin History of colitis Postmenopausal Bilateral foot-drop Bradycardia Tremor Abnormal lung sounds Sleep disturbance Irritable bowel syndrome Urge incontinence Esophageal stricture Hypercholesteremia Closed Colles' fracture of right radius Vitamin B 12 deficiency Carotid stenosis BMI 35.0-35.9,adult Non-smoker Allergic rhinitis, seasonal Esophageal diverticulum Vitamin D deficiency Epicondylitis, lateral, right Mild major depression Coronary artery disease Osteoporosis Polyneuropathy Hypogammaglobulinemia Mild obstructive sleep apnea Degeneration of cervical intervertebral disc Wears hearing aid Wears glasses Anxiety Alcohol use Arthritis Bladder disease Restless legs Injury of head and neck Back pain Parkinson's disease Difficulty swallowing History of IBS Gastric reflux Asthma Shortness of breath on exertion Leg cramps History of edema History of echocardiogram History of stress test Cardiology follow-up encounter Dysphagia Chronic hoarseness Fibromyalgia Pure hypercholesterolemia Ectopic atrial beats Bilateral carotid artery stenosis Pulmonary sarcoidosis GERD (gastroesophageal reflux disease) TERESO (obstructive sleep apnea) Vocal cord paralysis Home Medications ?Medication ?Instructions ?Recorded ?Last Taken ?Type aspirin 81 mg chewable tablet 81 mg PO QHS 04/03/15 01/17/25 History atorvastatin 10 mg tablet 10 mg PO QHS 04/03/15 01/16/25 History citalopram 20 mg tablet 20 mg PO DAILY 04/03/15 01/17/25 History folic acid 1 mg tablet 1 mg PO BIDCM 04/03/15 01/17/25 History albuterol sulfate 90 mcg/actuation 1 - 2 puff inhalation Q6H PRN 11/04/18 09/25/24 History aerosol inhaler Asthma multivitamin with folic acid 400 1 tab PO DAILY 11/04/18 01/17/25 History mcg tablet propranolol 10 mg tablet 10 mg PO BID 12/11/19 01/17/25 History magnesium oxide 400 mg PO DAILY 06/13/20 01/16/25 History famotidine 20 mg tablet (Pepcid) 20 mg PO DAILY GERD 02/06/21 01/16/25 History sumatriptan succinate 100 mg tablet 100 mg PO PRN PRN migraine headache 02/06/21 08/12/24 History tizanidine 2 mg tablet 2 mg PO QHS PRN Spasms 02/07/21 09/24/24 History carbidopa 25 mg-levodopa 100 mg 1 tab PO 4X/DAY 10/03/21 01/17/25 History tablet Lactobacillus acidophilus 250 500 mmu cells PO DAILY 08/10/24 01/17/25 History million cell capsule (Probiotic Acidophilus) calcium 600 mg (as 1 tab PO DAILY 08/10/24 01/16/25 History carbonate)-vitamin D3 10 mcg (400 unit) tablet (Calcium 600 + D(3)) melatonin 10 mg capsule 10 mg PO QHS PRN sleep 08/10/24 09/24/24 History omeprazole 40 mg capsule,delayed 40 mg PO DAILY 08/10/24 01/17/25 History release turmeric 400 mg capsule 400 mg PO DAILY 08/10/24 01/17/25 History biotin 5 mg capsule 5 mg PO DAILY 01/17/25 01/17/25 History coenzyme Q10 200 mg capsule (Co 200 mg PO DAILY 01/17/25 01/16/25 History Q-10) ondansetron 4 mg disintegrating 4 mg PO Q8H PRN PRN Nausea #10 tabs 03/20/25 Unknown Rx tablet Allergy/AdvReac Type Severity Reaction Status Date / Time celecoxib (From Celebrex) Allergy Unknown Verified 03/20/25 07:37 meperidine HCl (From Demerol) Allergy Unknown Verified 03/20/25 07:37 metoclopramide HCl (From Allergy Unknown Verified 03/20/25 07:37 Reglan) suture Allergy NEEDS Verified 03/20/25 07:37 FOLLOW-UP Family History Mother CHF (congestive heart failure) Sister CHF (congestive heart failure) Sister CAD (coronary artery disease) Myocardial infarction Presence of permanent cardiac pacemaker Aortic stenosis, severe Surgical History vocal cord surgery History of left heart catheterization (LHC) (~04/04/15) History of left breast biopsy History of Dorie fundoplication History of repair of hiatal hernia History of laminectomy History of fusion of cervical spine Social History household members: spouse and family Smoking Status: Never smoker alcohol intake: current details: occasional substance use type: does not use diet: other caffeine: Yes (occasional) what type of physical activity do you participate in: walking frequency: 3-4 times per week ROS ROS ED ROS Narrative Review of systems positive for esophageal spasm and pain with history of hiatal hernia. Positive nausea and vomiting. No hematemesis. No fevers or chills, no cough, no diarrhea. No exacerbating or alleviating factors. EXAM Physical Exam Narrative Exam Narrative: Afebrile. Vital signs noted. Nontoxic-appearing. Cardiovascular examination feels a regular rate and rhythm. Lungs are clear to auscultation bilaterally. Abdomen is soft, nontender, without guarding or rebound. No epigastric pain. Neurological examination nonfocal nonlateralizing. During examination when patient laid back, she became nauseated and vomited. No pedal edema. Const Vital Signs: 03/20/25 07:37 03/20/25 09:37 Temperature 98 F Temperature Source Temporal Pulse Rate 71 69 Respiratory Rate 14 15 Blood Pressure 147/65 H 106/63 Blood Pressure Mean 92 77 Pulse Ox 98 93 Oxygen Delivery Method Room Air Room Air MDM MDM MDM Narrative Medical decision making narrative: Differential diagnosis includes but not limited to esophageal spasm versus hiatal hernia versus GERD versus pancreatitis versus ACS. In order to help with relaxation for her esophageal spasming, she was given Ativan 0.5 mg intravenously. Blood work and EKG were obtained. EKG obtained interpreted by myself independently as normal sinus rhythm at 64 bpm without ectopy or acute ST changes. No STEMI. No significant change from previous EKG dated January 17, 2025. I reviewed her laboratory work and she has normal white count 9.2 with hemoglobin normal at 13.9, platelet count normal at 251. Electrolyte panel shows no evidence of dehydration with a normal BUN of 13 and creatinine 0.67, LFTs are slightly elevated with an AST of 35 and ALT of 41 which I think is nonspecific, alk phos 75 with lipase normal at 18 so I doubt pancreatitis. Her high-sensitivity troponin is slightly elevated at 22, however this is a 6-hour troponin/greater than 6-hour troponin and I feel this is most likely her baseline. I compared this to prior troponins as well and it has been 20 and 23 in the past. I do not feel she needs serial enzymes. Upon repeat examination, she is resting comfortably and feels improved. I will write her prescription for a few Zofran tablets and she can follow-up with gastroenterology regarding her esophageal motility disorder/spasms and her hiatal hernia. Chest x-ray 1 view interpreted by myself independently shows no acute process, no pneumonia, no pneumothorax. I reviewed the radiology report which confirms my independent interpretation. Disposition is discharged home in stable condition. History & Record Review Discussion w/independent historian: Patient Additional record(s) reviewed:: Prior labs Lab Data Attestation: I reviewed the patient's lab results. Labs: Laboratory Results - last 24 hr 03/20/25 08:45 WBC 9.2 RBC 4.41 Hgb 13.9 Hct 41.6 MCV 94.3 MCH 31.5 MCHC 33.4 RDW Std Deviation 45.6 H RDW Coeff of Neva 13.2 Plt Count 251 MPV 10.2 Immature Gran % (Auto) 0.400 Neut % (Auto) 73.0 H Lymph % (Auto) 15.0 L Real % (Auto) 8.5 Eos % (Auto) 2.7 Baso % (Auto) 0.4 Absolute Neuts (auto) 6.7 Absolute Lymphs (auto) 1.39 Nucleated RBC % 0 Sodium 139 Potassium 4.2 Chloride 102 Carbon Dioxide 23.5 Anion Gap 13 BUN 13 Creatinine 0.67 L Estim Creat Clear Calc 69.45 Est GFR (MDRD) Non-Af 91 BUN/Creatinine Ratio 19.1 Glucose 129 H Calcium 9.6 Total Bilirubin 0.52 AST 35 H ALT 41 H Alkaline Phosphatase 75 Troponin T High Sens 22 H Total Protein 6.9 Albumin 4.3 Globulin 2.6 Albumin/Globulin Ratio 1.7 Lipase 18 Radiography Diagnostic Testing: Clinical Impression(s) from Imaging Studies Chest X-Ray 03/20/25 10:00 IMPRESSION: No acute pulmonary process Reading Location: [facility] Discharge Plan Triage Chief Complaint: Nausea/Vomiting ED Provider: Julio Cesar Cox Dx/Rx/DC Orders Clinical Impression: Esophageal spasm, Esophageal motility disorder, Chest pain, Nausea and vomiting, Hiatal hernia Instructions: ED Chest Pain, Noncardiac, ED Esophageal Spasm, ED Hiatal Hernia Prescriptions: New ondansetron 4 mg tablet,disintegrating 4 mg PO Q8H PRN PRN (Reason: Nausea) Qty: 10 0RF No Action magnesium oxide 400 mg magnesium tablet 400 mg PO DAILY carbidopa-levodopa 25-100 mg tablet 1 tab PO 4X/DAY atorvastatin 10 MG tablet 10 mg PO QHS citalopram 20 MG tablet 20 mg PO DAILY aspirin 81 MG tablet,chewable 81 mg PO QHS folic acid 1 MG tablet 1 mg PO BIDCM albuterol sulfate 1 INHALER inhaler 1 - 2 puff inhalation Q6H PRN (Reason: Asthma) multivitamin with folic acid 1 TABLET tablet 1 tab PO DAILY coenzyme Q10 [Co Q-10] 200 mg capsule 200 mg PO DAILY biotin 5 mg capsule 5 mg PO DAILY omeprazole 40 mg capsule,delayed release(DR/EC) 40 mg PO DAILY melatonin 10 mg capsule 10 mg PO QHS PRN (Reason: sleep) calcium carbonate-vitamin D3 [Calcium 600 + D(3)] 600 mg-10 mcg (400 unit) tablet 1 tab PO DAILY Probiotic Acidophilus 250 million cell capsule 500 mmu cells PO DAILY turmeric 400 mg capsule 400 mg PO DAILY propranolol 10 mg tablet 10 mg PO BID sumatriptan succinate 100 mg tablet 100 mg PO PRN PRN (Reason: migraine headache) Rx Instructions: take 1 tab at onset of headache; if no relief, may repeat 1 tab after at least 2 hrs; max = 2 tabs/24 hrs PO famotidine [Pepcid] 20 mg tablet 20 mg PO DAILY tizanidine 2 mg tablet 2 mg PO QHS PRN (Reason: Spasms) Primary Care Provider: Mercy Bryant Referrals: Mercy Bryant MD [Primary Care Provider] - 3-5 Days if not improving Jose Raul Owen DO [Med Staff - Active Staff] - 3-5 Days if not improving Activity Restrictions/Additional Instructions: Continue your previous medications for esophageal spasm and hiatal hernia. Follow-up with gastroenterology. Return with increased pain, new or worsening symptoms. Print Language: Brazilian Disposition Disposition: Home, Self Care
[2025-03-20] MEDS: 0.9% Normal Saline (1000mL) 1,000 ML 999 ML IV (08:44)
[2025-03-20 08:58] LABS: Hematocrit 41.6 % (37-47); Hemoglobin 13.9 g/dL (12.0-15.0); Immature Granulocytes Count 0.040 X10^3/uL (0.0-0.0); Mean Corp Hgb Conc 33.4 g/dL (32-36); Mean Corpuscular Volume 94.3 fL (81-99); Mean Platelet Vol. 10.2 fl (6.2-12.0); NRBC Flagged by Analyzer 0 % (0-5); Platelet Count 251 K/mm3 (150-450); RBC Distribution Width CV 13.2 % (11.6-14.6); RBC Distribution Width SD 45.6 fl (35.1-43.9); Red Blood Count 4.41 M/mm3 (4.2-5.4); White Blood Count 9.2 K/mm3 (4.4-11.0)
[2025-03-20] MEDS: Lorazepam 2 MG/ML WCH Syringe 0.5 MG IV (09:08)
[2025-03-20 09:37] VITALS: BP 106/63; PULSE 69; RESP 15; O2SAT 93
[2025-03-20 09:39] LABS: AST(SGOT) 35 U/L (<=31); Alanine Aminotransfer ALT/SGPT 41 U/L (<=34); Albumin, Serum 4.3 g/dL (3.4-4.8); Alkaline Phosphatase 75 U/L (35-104); Anion Gap 13 (5-15); BUN 13 mg/dL (4-19); BUN/Creat Ratio 19.1 RATIO (10-20); Calcium,Total 9.6 mg/dL (7.6-11.0); Carbon Dioxide 23.5 mmol/L (21.0-32.0); Chloride 102 mmol/L (98-108); Estimated Creatinine Clearance 69.45 ml/min (50-250); Globulin 2.6 g/dL (2.2-4.2); Glucose 129 mg/dL (70-99); Lipase 18 U/L (13-75); Potassium 4.2 mmol/L (3.3-5.1)
[2025-03-20 09:59] LABS: Troponin T High Sensitivity 22 ng/L (<=14)
--- NOTE | 2025-03-20 10:00 | RAD_ITS ---
PROCEDURE: CHEST 1 VIEW (PORTABLE) 03/20/2025 REASON FOR EXAM: CHEST PAIN TECHNIQUE: Frontal view of the chest. COMPARISON: 01/17/2025 FINDINGS: Hardware: EKG leads overlie the chest, stable appearance of surgical hardware in the lower cervical spine Heart: The heart size is normal. Lungs: The lungs are clear. Bones: Degenerative changes are identified within the thoracic spine. Other: RAD/Chest 1 View (Portable) IMPRESSION: No acute pulmonary process Reading Location: [id number]
[2025-03-20 11:00] VITALS: BP 134/78; PULSE 78; RESP 18; TEMP 37; O2SAT 98
[2025-03-20 11:04] VITALS: BP 134/78; PULSE 64; RESP 18; TEMP 37.1; O2SAT 99
== END 2025-03-20 11:05 | disposition home or self-care (01) ==
PROVIDERS: Emergency Provider Emergency Medicine; PCP Internal Medicine; Visit Provider Emergency Medicine
DX: K22.4 Dyskinesia of esophagus (principal); R11.2 Nausea with vomiting, unspecified; I25.10 Atherosclerotic heart disease of native coronary artery without angina pectoris; E78.00 Pure hypercholesterolemia, unspecified; K44.9 Diaphragmatic hernia without obstruction or gangrene; R07.9 Chest pain, unspecified; G47.33 Obstructive sleep apnea (adult) (pediatric); K21.9 Gastro-esophageal reflux disease without esophagitis; Z79.82 Long term (current) use of aspirin; Z79.899 Other long term (current) drug therapy
CPT/HCPCS: 71045; 80053; 83690; 84484; 85025; 93005; 96361; 96374; 96375; 99283; J2405

== ENCOUNTER → 2025-05-01 | Outpatient (CLI) | payer MEDICARE, SELFPAY ==
--- NOTE | 2025-05-01 12:43 | US_ITS ---
PROCEDURE: EXT NON VASC LIMITED/SOFT TISS 05/01/2025 REASON FOR EXAM: AXILLARY MASS,RIGHT TECHNIQUE: EXT NON VASC LIMITED/SOFT TISS COMPARISON: None FINDINGS: The right axillary region was examined by ultrasound. No sonographic abnormality is seen. US/Ext Non Vasc Limited/Soft Tiss IMPRESSION: No sonographic abnormality is seen. Reading Location: [place] [id number]
== END | disposition home or self-care (01) ==
LOC: US 12:43
PROVIDERS: PCP Internal Medicine; Referring Provider Internal Medicine; Visit Provider Internal Medicine
DX: R22.31 Localized swelling, mass and lump, right upper limb (principal)
CPT/HCPCS: 76882

== ENCOUNTER → 2025-05-14 | Outpatient (CLI) | payer MEDICARE, SELFPAY ==
[2025-05-14 16:54] LABS: CRP < 3.00 mg/L (0.0-3.0)
[2025-05-16 12:08] LABS: Angiotensin Convert Enzyme 52 U/L (14-82)
== END | disposition home or self-care (01) ==
LOC: LAB 15:02
PROVIDERS: PCP Internal Medicine; Referring Provider Internal Medicine Pulmonary Disease; Visit Provider Internal Medicine Pulmonary Disease
DX: D86.9 Sarcoidosis, unspecified (principal)
CPT/HCPCS: 36415; 82164; 85652; 86140

== ENCOUNTER → 2025-06-25 | Outpatient (CLI) | payer MEDICARE, SELFPAY ==
--- NOTE | 2025-06-25 10:25 | MRI_ITS ---
PROCEDURE: BRAIN W/WO CONTRAST 06/25/2025 REASON FOR EXAM: OTHER AMNESIA TECHNIQUE: Procedure Code: [id number] Modality: MR Procedure: BRAIN W/WO CONTRAST Multiplanar and multisequence images were obtained. CONTRAST: VOLUME: mL FINDINGS: Moderate generalized atrophy with commensurate ventriculomegaly. [id number] confluent and focal FLAIR hyperintensities are scattered throughout the bilateral cerebral white matter, nonspecific but likely representing chronic microvascular ischemic changes. The midline structures are intact, specifically the corpus callosum, septum pellucidum, pituitary gland, and cerebellar vermis. Evidence of bilateral cataract surgery. Mild right maxillary sinusitis. Trace fluid is noted within a few bilateral mastoid air cells. Diffusion-weighted images demonstrate no acute process. MRI/Brain W/WO Contrast IMPRESSION: Moderate generalized atrophy. [id number] nonspecific FLAIR hyperintensities throughout the bilateral ce rebral white matter, probably representing chronic microvascular ischemic changes. Mild right maxillary sinusitis. Trace bilateral mastoid effusions. Reading Location: [id number]
--- NOTE | 2025-06-25 10:25 | MRI_ITS ---
PROCEDURE: BRAIN W/WO CONTRAST 06/25/2025 REASON FOR EXAM: OTHER AMNESIA TECHNIQUE: Procedure Code: MRIBRWW Modality: MR Procedure: BRAIN W/WO CONTRAST Multiplanar and multisequence images were obtained. CONTRAST: VOLUME: mL FINDINGS: Moderate generalized atrophy with commensurate ventriculomegaly. Beop-oo-[id number] confluent and focal FLAIR hyperintensities are scattered throughout the bilateral cerebral white matter, nonspecific but likely representing chronic microvascular ischemic changes. The midline structures are intact, specifically the corpus callosum, septum pellucidum, pituitary gland, and cerebellar vermis. Evidence of bilateral cataract surgery. Mild right maxillary sinusitis. Trace fluid is noted within a few bilateral mastoid air cells. Diffusion-weighted images demonstrate no acute process. MRI/Brain W/WO Contrast IMPRESSION: Moderate generalized atrophy. [id number] nonspecific FLAIR hyperintensities throughout the bilateral ce rebral white matter, probably representing chronic microvascular ischemic changes. Mild right maxillary sinusitis. Trace bilateral mastoid effusions. Reading Location: [id number]
== END | disposition home or self-care (01) ==
PROVIDERS: PCP Internal Medicine; Referring Provider Internal Medicine; Visit Provider Internal Medicine
DX: R41.3 Other amnesia (principal)
CPT/HCPCS: 70553; A9575

== ENCOUNTER → 2025-07-05 | Outpatient (CLI) | payer MEDICARE, SELFPAY ==
[2025-07-05 15:11] LABS: Hematocrit 37.9 % (37-47); Hemoglobin 12.2 g/dL (12.0-15.0); Immature Granulocytes Count 0.020 X10^3/uL (0.0-0.0); Mean Corp Hgb Conc 32.2 g/dL (32-36); Mean Corpuscular Volume 95.0 fL (81-99); Mean Platelet Vol. 10.8 fl (6.2-12.0); NRBC Flagged by Analyzer 0 % (0-5); Platelet Count 241 K/mm3 (150-450); RBC Distribution Width CV 12.8 % (11.6-14.6); RBC Distribution Width SD 44.8 fl (35.1-43.9); Red Blood Count 3.99 M/mm3 (4.2-5.4); White Blood Count 5.1 K/mm3 (4.4-11.0)
== END | disposition home or self-care (01) ==
LOC: MTLAB 11:38
PROVIDERS: PCP Internal Medicine; Referring Provider Internal Medicine Pulmonary Disease; Visit Provider Internal Medicine Pulmonary Disease
DX: D86.9 Sarcoidosis, unspecified (principal); G47.33 Obstructive sleep apnea (adult) (pediatric); K21.9 Gastro-esophageal reflux disease without esophagitis
CPT/HCPCS: 36415; 85025

== ENCOUNTER → 2025-07-23 | Outpatient (CLI) | payer MEDICARE, SELFPAY ==
--- NOTE | 2025-07-23 10:49 | RAD_ITS ---
RAD/Hips B/L min 2 views w/ Pelvis
--- NOTE | 2025-07-23 10:49 | RAD_ITS ---
RAD/Knee 4 or More Views
--- NOTE | 2025-07-23 10:52 | RAD_ITS ---
RAD/Knee 4 or More Views
[2025-07-23 12:37] LABS: Hematocrit 39.9 % (37-47); Hemoglobin 13.1 g/dL (12.0-15.0); Mean Corp Hgb Conc 32.8 g/dL (32-36); Mean Corpuscular Volume 94.1 fL (81-99); Mean Platelet Vol. 10.5 fl (6.2-12.0); Platelet Count 281 K/mm3 (150-450); RBC Distribution Width CV 13.2 % (11.6-14.6); RBC Distribution Width SD 45.7 fl (35.1-43.9); Red Blood Count 4.24 M/mm3 (4.2-5.4); White Blood Count 5.4 K/mm3 (4.4-11.0)
[2025-07-23 15:50] LABS: AST(SGOT) 36 U/L (<=31); Alanine Aminotransfer ALT/SGPT 43 U/L (<=34); Albumin, Serum 4.4 g/dL (3.4-4.8); Alkaline Phosphatase 70 U/L (35-104); Anion Gap 11 (5-15); BUN 15 mg/dL (4-19); BUN/Creat Ratio 24.5 RATIO (10-20); Calcium,Total 9.8 mg/dL (7.6-11.0); Carbon Dioxide 25.7 mmol/L (21.0-32.0); Chloride 104 mmol/L (98-108); Globulin 2.5 g/dL (2.2-4.2); Glucose 116 mg/dL (70-99); Magnesium 2.3 mg/dL (1.5-2.2); Potassium 4.5 mmol/L (3.3-5.1); Vitamin B12 609 pg/mL (180-914)
[2025-07-26 12:08] LABS: Vitamin D 1,25-Dihydroxy 68.5 pg/mL (24.8-81.5)
[2025-07-30 00:07] LABS: Folate, Hemolysate Test 620.0 ng/mL (Not Estab.); Folate, RBC (Hct) Test 42.4 % (34.0-46.6); Folates, RBC Test 1462 ng/mL (>498); VITAMIN B6 30.9 ug/L (3.4-65.2); Vitamin B1, Thiamine 124.1 nmol/L (66.5-200.0)
== END | disposition home or self-care (01) ==
LOC: MTLAB 10:49
PROVIDERS: PCP Internal Medicine; Referring Provider Psychiatry & Neurology Neurology; Visit Provider Psychiatry & Neurology Neurology
DX: M25.561 Pain in right knee (principal); M25.562 Pain in left knee; M25.551 Pain in right hip; M25.552 Pain in left hip; G62.9 Polyneuropathy, unspecified; R26.9 Unspecified abnormalities of gait and mobility; G31.84 Mild cognitive impairment of uncertain or unknown etiology
CPT/HCPCS: 36415; 73521; 73564; 80053; 82607; 82652; 82747; 83735; 83883; 84207; 84425; 84443; 85014; 85027

== ENCOUNTER → 2025-08-10 | Outpatient (CLI) | payer MEDICARE, SELFPAY ==
--- NOTE | 2025-08-10 13:12 | MRI_ITS ---
PROCEDURE: SPINE CERVICAL (ROUTINE) 08/10/2025 REASON FOR EXAM: NECK PAIN; GAIT IMBALANCE TECHNIQUE: Procedure Code: [id number] Modality: MR Procedure: SPINE CERVICAL (ROUTINE) Multiplanar and multisequence images were obtained without IV contrast administration. COMPARISON: None. FINDINGS: Vertebrae: Cervical vertebral body heights are preserved. Bone marrow signal is unremarkable. Status post ACDF C5, C6 and C7. Alignment: Normal. No spondylolisthesis. Spinal Cord: Cervical spinal cord is of normal size and signal intensities. Structures at the foramen magnum are unremarkable. C2-3: Facet joints arthropathy. No significant foraminal or canal stenosis. C3-4: Disc desiccation. Facet joints arthropathy. Ligamentum flavum hypertrophy. Mild bilateral foramina stenosis. Mild canal stenosis. C4-5: Disc desiccation. Disc bulge. Facet joints arthropathy. Mild bilateral foramina stenosis. Mild canal stenosis. C5-6: No foraminal or canal stenosis. C6-7: No foraminal or canal stenosis. C7-T1: No foraminal canal stenosis. MRI/Spine Cervical (Routine) IMPRESSION: Status post ACDF C5, C6 and C7. Mild bilateral foramina stenosis and mild canal stenosis at C3-C4 and C4-C5. Reading Location: [id number]
== END | disposition home or self-care (01) ==
LOC: MRI 13:07
PROVIDERS: PCP Internal Medicine; Referring Provider Psychiatry & Neurology Neurology; Visit Provider Psychiatry & Neurology Neurology
DX: M54.2 Cervicalgia (principal); R26.9 Unspecified abnormalities of gait and mobility
CPT/HCPCS: 72141